=== PATIENT | female | born 1970 | race Caucasian/White ===

== ENCOUNTER 2024-06-30 21:03 | Emergency (ER) | payer SELFPAY ==
[2024-06-30 21:06] VITALS: BP 143/69; PULSE 74; RESP 18; TEMP 36.6; O2SAT 99; BMI 25.4
--- NOTE | 2024-06-30 21:55 | XR_ITS ---
PROCEDURE INFORMATION: Exam: XR Right Wrist Exam date and time: 06/30/2024 10:03 PM Age: 54 years old Clinical indication: Injury or trauma; Fall; Other: Pain TECHNIQUE: Imaging protocol: Radiologic exam of the right wrist. Views: 3 or more views. Total images: 3 COMPARISON: CR XR WRIST RT MIN 3V 06/30/2024 10:03 PM FINDINGS: Bones/joints: No acute fracture or joint dislocation. No concerning bone lesions or calcifications. Appropriate carpal alignment. Unremarkable joint spaces. Soft tissues: Mild dorsal soft tissue swelling. IMPRESSION: 1. Negative right wrist. 2. Mild dorsal soft tissue swelling.
--- NOTE | 2024-06-30 22:04 | XR_ITS ---
PROCEDURE INFORMATION: Exam: XR Right Elbow Exam date and time: 06/30/2024 10:03 PM Age: 54 years old Clinical indication: Injury or trauma; Fall; Other: Pain; Additional info: Fall, injury TECHNIQUE: Imaging protocol: Radiologic exam of the right elbow. Views: 3 or more views. Total images: 3 COMPARISON: CR XR ELBOW RT MIN 3V 06/30/2024 10:03 PM FINDINGS: Bones/joints: No acute fracture, joint dislocation, or joint effusion. Unremarkable joint spaces. Small enthesophyte at the lateral humeral epicondyle. No concerning bone lesions or calcifications. Soft tissues: Unremarkable soft tissues. IMPRESSION: Negative right elbow.
--- NOTE | 2024-06-30 22:04 | XR_ITS ---
PROCEDURE INFORMATION: Exam: XR Right Hand Exam date and time: 06/30/2024 10:03 PM Age: 54 years old Clinical indication: Injury or trauma; Fall; Other: Pain; Additional info: Fall, injury TECHNIQUE: Imaging protocol: Radiologic exam of the right hand. Views: 3 or more views. Total images: 3 COMPARISON: CR XR FOREARM RT 2V 06/30/2024 10:03 PM FINDINGS: Bones/joints: No acute fracture or joint dislocation. No concerning bone lesions or calcifications. Age-appropriate joint spaces. Soft tissues: Unremarkable soft tissues. IMPRESSION: Negative right hand.
--- NOTE | 2024-06-30 22:04 | XR_ITS ---
PROCEDURE INFORMATION: Exam: XR Right Forearm Exam date and time: 06/30/2024 10:03 PM Age: 54 years old Clinical indication: Injury or trauma; Fall; Other: Pain; Additional info: Fall, injury TECHNIQUE: Imaging protocol: Radiologic exam of the right forearm. Views: 2 views. Total images: 2 COMPARISON: CR XR HAND RT MIN 3V 06/30/2024 10:03 PM FINDINGS: Bones/joints: No acute fracture or joint dislocation. No concerning bone lesions or calcifications. Unremarkable joint spaces. Soft tissues: Unremarkable soft tissues. IMPRESSION: Negative right forearm.
[2024-06-30] MEDS: HYDROCODONE/APAP 5/325 MG TABLET 1 TAB PO (22:07)
--- NOTE | 2024-06-30 22:07 | HMH.EDGENADL ---
Discharge Plan Disposition Patient Disposition: Home, Self-Care Prescriptions Prescriptions: New hydrocodone-acetaminophen 5-325 mg tablet 1 tab PO Q6H PRN (Reason: pain) 3 Days Qty: 12 0RF Referrals Follow up/Referrals: Merrick Matthews DO [Staff Physician] - See instructions Provider,Referral, [Primary Care Provider] - See instructions Activity Restrictions/Add. Instructions Additional Instructions/Restrictions: Overall your x-rays appeared good in the emergency part however there is a small angulated cortical irregularity on the dorsal aspect of your distal radius which is where he had point tenderness therefore we treated you is a small nondisplaced distal radius fracture. Please follow-up with Dr. Matthews for further evaluation and management. Please be nonweightbearing and perform light duty until you are cleared by the orthopedic surgeon. Clinical Impressions Clinical Impression: Sprain and strain of wrist, Distal radial fracture Stand Alone Forms Stand Alone Forms: Work/School Release Print Language Print Language: Hungarian Discharge ED Provider: Valentino Velez General Adult HPI General Chief complaint: Extremity Injury, Upper Stated complaint: AO 12-7 fell and hurt right arm Time Seen by Provider: 06/30/24 21:41 Mode of Arrival: Ambulatory Source of Information: Patient Limitations: No Limitations Description of Symptoms (Recalled from ER Triage Doc. by RN): Patient fell off of a chair around 1830. States she fell at an awkward angle and twisted her arm funny and landed on it (Right Wrist). History of Present Illness HPI narrative: 54-year-old female fell from a chair landing on an externally rotated and supinated arm that was extended complaining of pain in the hand wrist forearm and elbow. No neurovascular deficits from historical standpoint. Related Data Previous Rx's ?Medication ?Instructions ?Recorded hydrocodone 5 mg-acetaminophen 325 1 tab PO Q6H PRN pain 3 days #12 06/30/24 mg tablet tabs Allergies Allergy/AdvReac Type Severity Reaction Status Date / Time oxycodone Allergy Mild Hives Verified 06/30/24 21:54 [facility] Disclaimer: The information contained in this section may have been updated after the patient was seen, as this information can be updated by other users. Social History Smoking Status: Never smoker alcohol intake: never current occupational status: other Travel in the last 8 weeks: None ROS Obtained: Yes All systems reviewed & no additional complaints except as documented Physical Exam General General appearance: alert and in no apparent distress Head Head exam: atraumatic and normocephalic Respiratory Respiratory exam: Present normal lung sounds bilaterally Cardiovascular Cardiovascular exam: Present regular rate Extremities Exam Extremities exam: Present other (Patient has tenderness over the distal aspect of the right wrist and forearm and hand and elbow normal range of motion no soft tissue abnormalities etc.) Neurological Exam Neurological exam: Present alert Medical Decision Making Medical Records Screening: Per USPSTF and CDC recommendations, given the prevalence of disease in our region, it is our hospital?s policy to screen for HIV and viral Hepatitis for all patients aged 18 and over and those with ongoing risk factors. Mick Inquiry Pt receiving controlled substance: No Vital Signs: 06/30/24 21:06 Temperature 97.9 F Temperature Source Oral Pulse Rate [Left Radial] 74 Respiratory Rate 18 Blood Pressure [Right Arm] 143/69 H Blood Pressure Mean [Right Arm] 93 Blood Pressure Source [Right Arm] Automatic Cuff Blood Pressure Position [Right Arm] Supine 02 Sat by Pulse Oximetry 99 Oxygen Delivery Method Room Air Orders (Tests/Meds): ED MEDICATIONS Discontinued Medications Generic Name Dose Route Start Last Admin Trade Name Freq PRN Reason Stop Dose Admin Hydrocodone Bitart/Acetaminophen 1 tab 06/30/24 22:04 06/30/24 22:07 Hydrocodone/Apap 5/325 Mg Tablet PO 06/30/24 22:05 1 tab ONCE ONE Administration ORDERS Category Date Time Status Elbow XR right minimum 3 views [XR elbow RT min 3V] Exams 06/30/24 22:04 Taken Stat Forearm XR right 2 views [XR forearm RT 2V] Stat Exams 06/30/24 22:04 Taken Hand XR right minimum 3 views [XR hand RT min 3V] Stat Exams 06/30/24 22:04 Taken XR wrist RT min 3V Stat Exams 06/30/24 21:55 Taken Medical Decision Narrative: 54-year-old with above history and physical fall on outstretched arm with pain hand through elbow will get plain films to differentiate fracture dislocation versus sprain. [place] has been administered will reassess. X-rays performed of the hand wrist forearm and elbow which I personally interpreted which show no significant displaced fracture however on the dorsal aspect of the lateral view of the wrist there is an angulation and a cortical irregularity at the distal radius on the dorsal aspect where there is focal tenderness clinically therefore we will treat this is nondisplaced subtle distal radius fracture. Volar wrist splint was placed pain medicine prescribed patient will follow-up with Dr. Matthews for further evaluation management. Procedures Orthopedic Splinting/Casting Injury #1: Side: right Upper Extremity Injury Location: forearm and wrist Upper Extremity Immobilizer: volar splint Post Cast/Splinting Neuro Status: other Post Cast/Splinting Vasc Status: other Critical Care Critical Care Time Critical Care Time: No
--- OUTSIDE RECORDS SUMMARY | 2024-06-30 22:09 | XMS_ITS | Clinical Summary ---
Author Organization [facility] Address [address] [place] [address] Care Team Providers Care Employment And Claims Aide Name Role Phone Sierra Blanchard MD Primary Care Provider [phone] Allergies Active Allergy Reactions Criticality Noted Date Comments Oxycodone Hcl Anaphylaxis High 06/04/2016 Medications cetirizine (zyrTEC) 10 MG tablet Take 10 mg by mouth Daily. Active varenicline (CHANTIX STARTING MONTH ) 0.5 MG X 11 & 1 MG X 42 tabletIndicatio ns:Encounter for smoking cessation counseling Take 0.5 mg one daily on days 1-2 and 0.5 mg twice daily on days 4-7. Then 1 mg twice daily for a total of 12 weeks. 53 tablet 03/24/2017 Active benzonatate (TESSALON PERLES) 100 MG capsuleIndicati ons:Bronchitis Take 1 capsule by mouth 3 (Three) Times a Day As Needed for Cough. 15 capsule 1 03/24/2017 Active Acetaminophen (Tylenol) 325 MG capsule 11/20/2019 Active TiZANidine (ZANAFLEX) 2 MG capsule TAKE 1 CAPSULE BY MOUTH THREE TIMES A DAY NEEDED FOR 7 DAYS 11/20/2019 Active methylPREDNISol one (MEDROL, RALEIGH,) 4 MG tablet TAKE 6 TABLETS ON DAY 1 DIRECTED ON PACKAGE AND DECREASE BY 1 TAB EACH DAY FOR A TOTAL OF 6 DAYS 11/20/2019 Active Active Problems Problem Noted Date Diagnosed Date Well woman exam with routine gynecological exam 09/01/2016 Overview (09/01/2016): SCREENING TESTS Year 2011 2012 2014 2015 2016 2017 2017 2018 2019 2020 2021 2022 2023 2024 2025 2026 2028 2029 2030 2031 Age 45 PAP 4 HPV high risk Mammogram [Birads] 4 SHANTI score Colonoscopy DEXA Frax [hip/any] Lipids [LDL / HDL / TG] Vitamin D Ovarian Screen Enter the month test was performed. If month not known, enter X' ?? Black numbers = normal results ?? Red numbers = abnormal results ?? Black X = patient reported normal ?? Red X - patient reported abnormal Referred by: Profession: Other info: Immunizations Name Administration Dates Next Due Flu Vaccine Quad PF >36MO 07/16/2017 Social History Tobacco Use Types Packs/Day Years Used Date Smoking Tobacco: Every Day Cigarettes Smokeless Tobacco: Never Tobacco Cessation:Ready to Q uit: Yes; Counseling Given: Yes Comments:Rx for Chantix starting pack Alcohol Use Standard Drinks/Week Comments No 0 (1 standard drink = 0.6 oz pur e alcohol) Abuse Screen Answer Date Recorded Unsafe at Home or Work/School Not on file Feels Threatened by Someone? Not on file 03/2023 Does Anyone Keep You from Co ntacting Others or Doint Things Outside the Home? Not on file 05/02/2023 Physical Sign of Abuse Present Not on file 1 Housing Stability Answer Date Recorded Current Living Arrangements Not on file 03/2023 Potentially Unsafe Housing Conditions Not on spencer e 05/02/2023 Family and Community Support Answer Hardik e Recorded Help with Day-to-Day Activities Not on file 05/02/2023 Lonely or Isolated Not on file 05/02/2023 Employment Answer Date Recorded Do you want help finding or keeping work or a flor b? Not on file 05/02/2023 Disabilities Answer Date Recorded Concentrating, Remembering, or Making Decisions Difficulty Not on file 05/02/2023 Doing Errands Independently Difficulty Not on fi le 05/02/2023 Education Answer Date Recorded Help with school or training? Not on file Preferred Language Not on file 05/02/2023 Comments Unknown Sex and Gender Information Value Date Recorded Sex Assigned at Not on file Legal Sex Female 11:20 AM EDT Gender Identity Not on file Sexual Orientation Not on file Last Filed Vital Signs Vital Sign Reading Time Taken Comments Blood Pressure 126/74 03/24/2017 10:44 AM EDT Pulse 72 03/24/2017 10:44 AM EDT Temperature 37.1 ??C (98.7 ??F) 03/24/2017 10:44 AM E DT Respiratory Rate 16 03/24/2017 10:44 AM EDT Oxygen Saturation 99% 03/24/2017 10:44 AM EDT Inhaled Oxygen Concentration - - Weight 102 kg (224 lb) 12/13/2019 2:17 PM EDT Height 168.9 cm (5' 6.5 ) 12/13/2019 2:17 PM EDT Body Mass Index 35.61 12/13/2019 2:17 PM EDT Plan of Treatment Health Maintenance Due Date Last Done Comments COLOGUARD 1972 COLON CANCER SCREENING 5 YEA R SIGMOIDOSCOPY 1972 COLONOSCOPY [address] SCREENING 1972 CT COLONOGRAPHY 1972 FECAL OCCULT BLOOD TEST 1972 FIT Testing (1 year) 1972 Pneumococcal Vaccine 0-64 (1 of 2 - PCV) 01/18/1978 MAMMOGRAM 2012 ANNUAL PHYSICAL 10/28/2016 HEPATITIS C SCREENING 10/28/2016 Annual Gynecologic Pelvic and Breast Exam 10/29/2016 10/29/2015 PAP SMEAR 10/28/2018 10/29/2015 ZOSTER VACCINE (1 of 2) 01/18/2022 INFLUENZA VACCINE 01/23/2024 07/16/2017 COVID-19 Vaccine ( - season) 2024 TDAP/TD VACCINES (3 - Td or Tdap) 01/26/2029 019, 12/26/2008 Procedures Procedure Name Priority Date/Time Associated Diagnosis Comments SCANNED - PAP SMEAR 10/29/2015 from Last 3 Months or Most Recently Relevant to Health Maintenance Results * SCANNED - PAP SMEAR (10/29/2015) [facility] Onbase CHART REVIEW TABS Final Re sult from Last 3 Months or Most Recently Relevant to Health Maintenance Insurance [place] [place] [id number] [facility] PPO Care Teams Employment And Claims Aide Relationship Specialty Start Date End Date Sierra Blanchard MD PCP - General Family Medicine 11/20/19
--- OUTSIDE RECORDS SUMMARY | 2024-06-30 22:09 | XMS_ITS | Encounter Summary ---
Author Organization [facility] Address [address] [place] [address] Care Team Providers Care Tile Mason Name Role Phone Sushil Fry MD Primary Care Provider [phone] Encounter Details Date Type Department Care Team (Latest Contact Info) Description 06/23/2015 2:04 PM EST - 06/23/2015 11:59 PM EST Hospital Encounter [facility] DEPARTMENT [address] [place] [id number] Sushil Fry MD [address] [place] [address] Discharge Disposition: Home or Self Care Social History Tobacco Use Types Packs/Day Years Used Date Smoking Tobacco: Never Assessed Comments Unknown Sex and Gender Information Value Date Recorded Sex Assigned at Not on file Legal Sex Female 11:20 AM EDT Gender Identity Not on file Sexual Orientation Not on file documented as of this encounter Plan of Treatment Not on file documented as of this encounter Procedures Procedure Name Priority Date/Time Associated Diagnosis Comments CT ABDOMEN PELVIS W WO CONTRAST Routine 06/23/2015 2:09 PM EST documented in this encounter Results * CT abdomen pelvis w wo contrast (06/23/2015 2:09 PM EST) Anatomical Region Laterality Modality Abdomen, Pelvis N/A Computed Tomogra phy 06/23/2015 2:09 PM EST Narrative 06/24/2015 3:59 PM EST EXAMINATION- AC ABD PELVIS W WO CONTRAST INDICATION- Abdominal pain right upper quadrant, fatigue, weight loss increased white blood count. TECHNIQUE- Multislice helical CT before and after 100 cc Isovue-370 contrast media. Two-dimensional reformatted images were provided for this exam. The radiation dose reduction device was turned on for each scan per the ALARA (As Low as Reasonably Achievable) protocol. COMPARISON- 08/24/2007 FINDINGS- Minimal atelectasis is present in the lower lobes. The heart size is normal. The distal esophagus ??is grossly unremarkable. The hepatic parenchyma is free of masses. Clips overlie the gallbladder fossa. The pancreatic tissues are grossly unremarkable. The adrenal glands are normal. The renal contours are smooth. There is no hydronephrosis or hydroureter. The course and caliber of the stomach and proximal small bowel are normal. Pelvis- The bladder is moderately distended. The uterus and adnexa are normal. There is no significant inguinal adenopathy. The appendix contains air. A few diverticula are present in the sigmoid colon. There is no significant inguinal adenopathy. The osseous structures of the abdomen and pelvis are normal. Delayed images reveal normal renal collecting systems and ureters. There are no filling defects in the bladder. IMPRESSION- No acute abdominal or pelvic pathology. DT- ??06/24/2015 DE- ??06/24/2015 ? Reading Radiologist- OTIS CASTELLANO ? Releasing Radiologist- OTIS CASTELLANO ? Released Date Time- 06/24/15 1559 ? Ward Service Supervisor- D.M.E. Procedure Note Otis Emanuel MD - 06/24/2015 EXAMINATION- AC ABD PELVIS W WO CONTRAST INDICATION- Abdominal pain right upper quadrant, fatigue, weight loss increased white blood count. TECHNIQUE- Multislice helical CT before and after 100 cc Isovue-370 contrast media. Two-dimensional reformatted images were provided for this exam. The radiation dose reduction device was turned on for each scan per the ALARA (As Low as Reasonably Achievable) protocol. COMPARISON- 08/24/2007 FINDINGS- Minimal atelectasis is present in the lower lobes. The heart size is normal. The distal esophagus is grossly unremarkable. The hepatic parenchyma is free of masses. Clips overlie the gallbladder fossa. The pancreatic tissues are grossly unremarkable. The adrenal glands are normal. The renal contours are smooth. There is no hydronephrosis or hydroureter. The course and caliber of the stomach and proximal small bowel are normal. Pelvis- The bladder is moderately distended. The uterus and adnexa are normal. There is no significant inguinal adenopathy. The appendix contains air. A few diverticula are present in the sigmoid colon. There is no significant inguinal adenopathy. The osseous structures of the abdomen and pelvis are normal. Delayed images reveal normal renal collecting systems and ureters. There are no filling defects in the bladder. IMPRESSION- No acute abdominal or pelvic pathology. DT- 06/24/2015 DE- 06/24/2015 Reading Radiologist- OTIS CASTELLANO Releasing Radiologist- OTIS CASTELLANO Released Date Time- 06/24/15 1559 Ward Service Supervisor- D.M.E. Sushil Fry MD IMG CT ORDERABLES Final Resul t documented in this encounter Visit Diagnoses Not on filedocumented in this encounter Care Teams Tile Mason Relationship Specialty Start Date End Date Sushil Fry MD PCP - General 03/06/15 10/28/15 documented as of this encounter
--- OUTSIDE RECORDS SUMMARY | 2024-06-30 22:09 | XMS_ITS | Encounter Summary ---
Author Organization [facility] Address [address] [place] [address] Care Team Providers Care Or Scrub Tech Name Role Phone Sushil Fyr MD Primary Care Provider [phone] Encounter Details Date Type Department Care Team (Late st Contact Info) Description 06/18/2015 Telephone Converted [facility] HISTORICAL CONV [address] [place] [address] Social History Tobacco Use Types Packs/Day Years Used Date Smoking Tobacco: Never Assessed Comments Unknown Sex and Gender Information Value Date Recorded Sex Assigned at Not on file Legal Sex Female 11:20 AM EDT Gender Identity Not on file Sexual Orientation Not on file documented as of this encounter Miscellaneous Notes * Telephone Encounter - Interface, See Report - 06/18/2015 3:56 PM EST Message Recorded as Task Date: 06/18/2015 12:29 PM, Created By: Luzma Garcia Task Name: Medication Question Assigned To: Virgilio Eagle [facility]: [facility] Comment: Luzma Garcia - 18 Jun 2015 12:29 PM TASK CREATED [facility] [place], [place] CALLED [facility]ING MED[facility] SANCHEZHRIN WANTS CLARIFICATION ON DRUG AND DIRECTIONS PLSE ADVISE THX CALL #[phone] PER Elyssa Higginbotham - 18 Jun 2015 1:33 PM TASK EDITED Let them know he wants the premethrin lice solution per dr fry/Elyssa Ortiz - 18 Jun 2015 1:33 PM TASK REASSIGNED: Previously Assigned To Elyssa Birch Aliran - 18 Jun 2015 3:18 PM TASK EDITED Elyssa, pharmacist is a little comfused regarding this rx. She would like to talk to Dr. Fry to get it clear. [phone]. Thank you! FcoVirgilio - 18 Jun 2015 3:56 PM TASK EDITED As per Dr fry, I asked the pharmacist what would she suggest. She will fill the rx and write instructions on patient medication as to how to apply it to the hair for lice. documented in this encounter Plan of Treatment Not on file documented as of this encounter Visit Diagnoses Not on filedocumented in this encounter Care Teams Or Scrub Tech Relationship Specialty Start Date End Date Sushil Fry MD PCP - General 03/06/15 10/28/15 documented as of this encounter
--- OUTSIDE RECORDS SUMMARY | 2024-06-30 22:09 | XMS_ITS | Encounter Summary ---
Author Organization [facility] Address [address] [place] [address] Care Team Providers Care Culinary Instructor Name Role Phone Sushil Fry MD Primary Care Provider [phone] Encounter Details Date Type Department Care Team (Latest Contact Info) Description 05/16/2015 10:00 AM EDT - 05/16/2015 11:59 PM EDT Hospital Encounter [facility] DEPARTMENT [address] [place] [phone] Sushil Fry MD [address] [place] [address] Discharge Disposition: Home or Self Care Social [...] Procedure Name Priority Date/Time Associated Diagnosis Comments US ABDOMEN COMPLETE Routine 05/16/2015 9 :51 AM EDT documented in this encounter Results * ULTRASOUND ABDOMEN COMPLETE (05/16/2015 9:51 AM EDT) Anatomical Region Laterality Modality Body, Abdomen Ultrasound 05/16/2015 9:51 AM EDT Narrative 05/16/2015 11:50 AM EDT Exam Room: [facility] 1 Exam Start: [id number] Exam Stop: [id number] EXAMINATION- AU-ABDOMEN COMPLETE INDICATION- RUQ abdominal pain, leukocytosis ?? COMPARISON- NONE FINDINGS- Patient history indicates right upper quadrant pain and leukocytosis. The abdominal aorta is visible along its length, and appears normal in diameter. The IVC appears normal. The pancreas is generally well visualized and appears grossly normal. Right and left liver lobes appear normal in morphology and echotexture. By history, the gallbladder is surgically absent. The common bile duct is normal in caliber at between 3 and 4 mm in diameter. The right kidney measures 12.3 cm and appears normal. The left kidney measures 12.1 cm and appears normal. There is no evidence of nephrolithiasis or obstructive uropathy. The spleen is approximately 11 cm in length and normal in appearance. No upper abdominal ascites is seen. ? IMPRESSION- 1. Previous cholecystectomy. 2. Otherwise unremarkable abdominal ultrasound. In particular, no evidence of intra or extrahepatic biliary ductal dilatation is seen. DT- ??05/16/2015 DE- ??05/16/2015 ? Reading Radiologist- STAN DOWELL ? Releasing Radiologist- STAN DOWELL ? Released Date Time- 05/16/15 1150 ? Security Orderly- Tarik Read By: STAN DOWELL Released By: STAN DOWELL Procedure Note Stan To MD - 05/18/2015 Exam Room: [facility] 1 Exam Start: [id number] Exam Stop: [id number] EXAMINATION- AU-ABDOMEN COMPLETE INDICATION- RUQ abdominal pain, leukocytosis COMPARISON- NONE FINDINGS- Patient history indicates right upper quadrant pain and leukocytosis. The abdominal aorta is visible along its length, and appears normal in diameter. The IVC appears normal. The pancreas is generally well visualized and appears grossly normal. Right and left liver lobes appear normal in morphology and echotexture. By history, the gallbladder is surgically absent. The common bile duct is normal in caliber at between 3 and 4 mm in diameter. The right kidney measures 12.3 cm and appears normal. The left kidney measures 12.1 cm and appears normal. There is no evidence of nephrolithiasis or obstructive uropathy. The spleen is approximately 11 cm in length and normal in appearance. No upper abdominal ascites is seen. IMPRESSION- 1. Previous cholecystectomy. 2. Otherwise unremarkable abdominal ultrasound. In particular, no evidence of intra or extrahepatic biliary ductal dilatation is seen. DT- 05/16/2015 DE- 05/16/2015 Reading Radiologist- STAN DOWELL Releasing Radiologist- STAN DOWELL Released Date Time- 05/16/15 1150 Security Orderly- Tarik Read By: STAN DOWELL Released By: STAN DOWELL us Sushil Fry MD [facility] ORDERABLES Final Resul t documented in this encounter Visit Diagnoses Not on filedocumented in this encounter Care Teams Culinary Instructor Relationship Specialty Start Date End Date Sushil Fry MD PCP - General 03/06/15 10/28/15 documented as of this encounter
--- OUTSIDE RECORDS SUMMARY | 2024-06-30 22:09 | XMS_ITS | Encounter Summary ---
Author Organization [facility] Address [address] [place] [address] Care Team Providers Care Coffee Bar Attendant Name Role Phone Sushil Fry MD Primary Care Provider [phone] Reason for Visit * Reason Comments Sinusitis clear w/bad taste po ductive cough, post nasal drip, sinus drainage, mild earache, facial preassure Encounter Details Date Type Department Care Team (Late st Contact Info) Description 03/24/2017 10:15 AM EDT Office Visit [facility] [address] [phone] Sushil Fry MD [address] [place] [address] Bronchitis (Primary Dx); Encounter for smoking cessation counseling Social History Tobacco Use Types Packs/Day Years Used Date Smoking Tobacco: Every Day Cigarettes Smokeless Tobacco: Never Tobacco Cessation:Ready to Q uit: Yes; Counseling Given: Yes Comments:Rx for Chantix starting pack Alcohol Use Standard Drinks/Week Comments No 0 (1 standard drink = 0.6 oz pur e alcohol) Comments Unknown Sex and Gender Information Value Date Recorded Sex Assigned at Not on file Legal Sex Female 11:20 AM EDT Gender Identity Not on file Sexual Orientation Not on file documented as of this encounter Last Filed Vital Signs Vital Sign Reading Time Taken Comments Blood Pressure 126/74 03/24/2017 10:44 AM EDT Pulse 72 03/24/2017 10:44 AM EDT Temperature 37.1 ??C (98.7 ??F) 03/24/2017 10:44 AM E DT Respiratory Rate 16 03/24/2017 10:44 AM EDT Oxygen Saturation 99% 03/24/2017 10:44 AM EDT Inhaled Oxygen Concentration - - Weight 102 kg (224 lb) 03/24/2017 10:44 AM EDT Height 168.9 cm (5' 6.5 ) 03/24/2017 10:44 AM ED T Body Mass Index 35.61 03/24/2017 10:44 AM EDT documented in this encounter Progress Notes * Sushil Fry MD - 03/24/2017 10:15 AM EDT Subjective Venessa Dumont is a 47 y.o. female. Cough This is a new problem. The current episode started in the past 7 days. The cough is productive of sputum. Associated symptoms include postnasal drip. Pertinent negatives include no chest pain, chills, fever, shortness of breath or sweats. The symptoms are aggravated by lying down. She has tried OTCcough suppressant (Robitussin) for the symptoms. The treatment provided no relief. Her past medicalhistory is significant for environmental allergies. current smoker The following portions of the patient's history were reviewed and updated as appropriate: allergies, current medications, past social history and problem list. Review of Systems Constitutional: Negative for chills and fever. HENT: Positive for postnasal drip. Respiratory: Positive for cough. Negative for shortness of breath. Cardiovascular: Negative for chest pain. Allergic/Immunologic: Positive for environmental allergies. Objective BP 126/74 Pulse 72 Temp 98.7 ??F (37.1 ??C) Resp 16 Ht 66.5 (168.9 cm) Wt 224 lb (102 kg) SpO2 99% BMI 35.61 kg/m2 Physical Exam Constitutional: She appears well-developed and well-nourished. HENT: Right Ear: External ear normal. Left Ear: External ear normal. Mouth/Throat: Oropharynx is clear and moist. Cardiovascular: Normal rate and regular rhythm. Pulmonary/Chest: Effort normal and breath sounds normal. Nursing note and vitals reviewed. Assessment/Plan Problem List Items Addressed This Visit None Visit Diagnoses Bronchitis - Primary Relevant Medications cetirizine (zyrTEC) 10 MG tablet Encounter for smoking cessation counseling Drink plenty fluids. Switch to Claritin for 1 week then go back to Cetirizine. Rx for Augmentin 875 twice a day for 7 day #14+0. Rx for Benzonatate 100 mg Three times a day #15+1. Rx for Chantix starter pack. Follow up [address] Sushil Fry by Sushil Ledbetter CMA., MD, personally performed the services described in this documentation, as scribed by Elyssa Birch in my presence, and is both accurate and complete. documented in this encounter Plan of Treatment Not on file documented as of this encounter Visit Diagnoses Diagnosis Bronchitis- Primary Bronchitis, not specified as acute or chronic Encounter for smoking cessation counseling documented in this encounter Care Teams Coffee Bar Attendant Relationship Specialty Start Date End Date Sushil Fry MD PCP - General Family Medicine 11/03/16 11/19/19 documented as of this encounter
--- OUTSIDE RECORDS SUMMARY | 2024-06-30 22:09 | XMS_ITS | Encounter Summary ---
Author Organization [facility] Address [address] [place] [address] Care Team Providers Care Buttermaker Name Role Phone Sushil Fry MD Primary Care Provider Encounter Details Date Type Department Care Team (Late st Contact Info) Description 07/24/2015 Documentation Converted [facility] HISTORICAL CONV [address] [place] [phone] Social History Tobacco Use Types Packs/Day Years Used Date Smoking Tobacco: Never Assessed Comments Unknown Sex and Gender Information Value Date Recorded Sex Assigned at Not on file Legal Sex Female 11:20 AM EDT Gender Identity Not on file Sexual Orientation Not on file documented as of this encounter Progress Notes * Sushil Fry MD - 07/24/2015 1:29 PM EST Verified Results Amylase [id number] 04:05PM Sushil Fry Test Name Result Flag Reference Amylase 52 Units/L 30-118 Lipase [id number] 04:05PM Sushil Fry Test Name Result Flag Reference Lipase 34 Units/L 6-51 documented in this encounter Plan of Treatment Not on file documented as of this encounter Visit Diagnoses Not on filedocumented in this encounter Care Teams Buttermaker Relationship Specialty Start Date End Date Sushil Fry MD PCP - General 03/06/15 10/28/15 documented as of this encounter
--- OUTSIDE RECORDS SUMMARY | 2024-06-30 22:09 | XMS_ITS | Encounter Summary ---
Author Organization [facility] Address [address] [place] [address] Care Team Providers Care Caustics Loader Name Role Phone Sushil Fry MD Primary Care Provider [phone] Encounter Details Date Type Department Care Team (Late st Contact Info) Description 06/18/2015 Telephone Converted [facility] HISTORICAL CONV [address] [place] [address] Social History Tobacco Use Types Packs/Day Years Used Date Smoking Tobacco: Never Assessed Comments Unknown Sex and Gender Information Value Date Recorded Sex Assigned at Not on file Legal Sex Female 11:20 AM EDT Gender Identity Not on file Sexual Orientation Not on file documented as of this encounter Miscellaneous Notes * Telephone Encounter - Interface, See Report - 06/18/2015 4:24 PM EST Message Recorded as Task Date: 06/18/2015 09:34 AM, Created By: Luzma Garcia Task Name: Medication Question Assigned To: Virgilio Eagle [id number] Status: Active Comment: Luzma Garcia - 18 Jun 2015 9:34 AM TASK CREATED Caller: Self; ; PT CALLED REQUESTING LICE SHAMPOO PLSE ADVISE THX RX- [facility] IN [place], [place] Elyssa Birch - 18 Jun 2015 11:19 AM TASK EDITED OK per Dr Fry sentd rx for Permethrin shampoo and let her know/Elyssa Ortiz - 18 Jun 2015 11:30 AM TASK EDITED Let pt know rx was sent/Elyssa Ortiz - 18 Jun 2015 1:33 PM TASK REASSIGNED: Previously Assigned To Elyssa Birch Aliran - 18 Jun 2015 4:24 PM TASK EDITED patient has been notified documented in this encounter Plan of Treatment Not on file documented as of this encounter Visit Diagnoses Not on filedocumented in this encounter Care Teams Caustics Loader Relationship Specialty Start Date End Date Sushil Fry MD PCP - General 03/06/15 10/28/15 documented as of this encounter
--- OUTSIDE RECORDS SUMMARY | 2024-06-30 22:09 | XMS_ITS | Encounter Summary ---
Author Organization [facility] Address [address] [place] [address] Care Team Providers Care Bpm Developer Name Role Phone Sushil Fry MD Primary Care Provider [phone] Encounter Details Date Type Department Care Team (Late st Contact Info) Description 07/21/2015 9:19 AM EST - 07/24/2015 11:59 PM EST Hospital Encounter [facility] DEPARTMENT [address] [place] [address] Kamini Drew MD [address] [facility] [address] [place] [address] Discharge Disposition: Home or Self Care Social [...] Procedure Name Priority Date/Time Associated Diagnosis Comments CBC ONCOLOGY Routine 07/21/2015 9:15 AM EST documented in this encounter Results * (ABNORMAL) CBC Oncology (07/21/2015 9:15 AM EST) WBC 12.60(H) 3.50 - 10.80 [facility] LABORATORY Lymphocyte Rel % 36.3 24.0 - 44.0 % [facility] LABORATORY Lymphocytes Absolute 4.60 0.60 - 4.80 [facility] LABORATORY Monocyte Rel % 4.6 0.0 - 12.0 % [facility] Monocytes Absolute 0.60 0.00 - 1.00 K/[facility] Neutrophil Rel % 59.1 41.0 - 71.0 % [facility] Neutrophils Absolute 7.40 1.50 - 8.30 K/[facility] RBC 4.94 3.89 - 5.14 /[facility] Hemoglobin 14.2 11.5 - 15.5 g/dL [facility] Hematocrit 44.1(H) 34.5 - 44.0 % [facility] Platelets 213 150 - 450 K/[facility] MCV 89.3 80.0 - 99.0 fL [facility] MCH 28.7 27.0 - 31.0 pg [facility] MCHC 32.2 32.0 - 36.0 g/dL [facility] RDW 14.1 11.3 - 14.5 % [facility] MPV 8.4 fL [facility] Blood specimen (specimen) 07/21/2015 9:15 AM EST 07/21/2015 9:15 AM EST Narrative [facility] LABORATORY - 07/21/2015 9:22 AM EST Specimen Type : Blood Kamini Drew MD LAB BLOOD ORDERABLES Lisbet l Result [facility]
[address] [phone] documented in this encounter Visit Diagnoses Not on filedocumented in this encounter Care Teams Bpm Developer Relationship Specialty Start Date End Date Sushil Fry MD PCP - General 03/06/15 10/28/15 documented as of this encounter
--- OUTSIDE RECORDS SUMMARY | 2024-06-30 22:09 | XMS_ITS | Encounter Summary ---
Author Organization [facility] Address [address] [place] [address] Care Team Providers Care Clinical Quality Rn Name Role Phone Provider, No Known Primary Care Provider [phone] Reason for Referral * Diagnostic Imaging (Routine) - Closed Specialty Diagnoses / Procedures Referred By Contac t Referred To Contact Radiology Diagnoses Achilles tendinitis, right leg Procedures XR Foot 3+ View Right Sushil Fry MD Phone: tel: fax: Referral ID Status Reason Start Date Expiration Date Visits Re quested Visits Authorized [id number] Closed 10/28/2016 10/28/2017 1 1 * Physical Therapy (Routine) - Closed Specialty Diagnoses / Procedures Referred By Contac t Referred To Contact Physical Therapy Diagnoses Achilles tendinitis, right leg Plantar fasciitis of right foot Sushil Fry MD Phone: tel: fax: [facility] AT [facility] [address] [facility] [address] [place] [address] Phone: tel: fax: Referral ID Status Reason Start Date Expiration Date V isits Requested Visits Authorized [id number] Closed Specialty Services Required 10/28/2016 10/28/2017 1 1 Reason for Visit * Reason Comments Foot Injury right Encounter Details Date Type Department Care Team (Late st Contact Info) Description 10/28/2016 11:00 AM EDT Office Visit [facility] [address] [phone] Sushil Fry MD [address] [place] [id number] Achilles tendinitis, right leg (Primary Dx); Plantar fasciitis of right foot Social History Tobacco Use Types Packs/Day Years Used Date Smoking Tobacco: Every Day Cigarettes Comments Unknown Sex and Gender Information Value Date Recorded Sex Assigned at Not on file Legal Sex Female 11:20 AM EDT Gender Identity Not on file Sexual Orientation Not on file documented as of this encounter Last Filed Vital Signs Vital Sign Reading Time Taken Comments Blood Pressure 130/80 10/28/2016 11:11 AM EDT Pulse 73 10/28/2016 11:11 AM EDT Temperature 36.7 ??C (98.1 ??F) 10/28/2016 11:11 AM E DT Respiratory Rate - - Oxygen Saturation 99% 10/28/2016 11:11 AM EDT Inhaled Oxygen Concentration - - Weight 103 kg (226 lb) 10/28/2016 11:11 AM EDT Height 168.9 cm (5' 6.5 ) 10/28/2016 11:11 AM ED T Body Mass Index 35.93 10/28/2016 11:11 AM EDT documented in this encounter Progress Notes * Sushil Fry MD - 10/28/2016 11:00 AM EDT Subjective [facility] is a 46 y.o. female. Foot Injury The injury mechanism is unknown. The pain is present in the right heel (and right lower leg). The quality of the pain is described as aching and stabbing. The pain is moderate. The pain has been intermittent since onset. She reports no foreign bodies present. The symptoms are aggravated by movementand weight bearing. She has tried rest and ice for the symptoms. The treatment provided mild relief. The following portions of the patient's history were reviewed and updated as appropriate: allergies, current medications, past social history and problem list. Review of Systems Respiratory: Negative for shortness of breath. Cardiovascular: Negative for chest pain. Objective BP 130/80 Pulse 73 Temp 98.1 ??F (36.7 ??C) Ht 66.5 (168.9 cm) Wt 226 lb (103 kg) SpO2 99% BMI 35.93 kg/m2 Physical Exam Constitutional: She appears well-developed and well-nourished. Musculoskeletal: Examination of the affected foot and ankle revealed a tenderness of the Achilles tendon. There is no defect. There is also some tenderness at the heel and the distal plantar fasciitis at the volar aspect of the foot. No point tenderness. Her arch was moderately high. Nursing note and vitals reviewed. Assessment/Plan Problem List Items Addressed This Visit None Visit Diagnoses Achilles tendinitis, right leg - Primary Plantar fasciitis of right foot Rest foot as much as possible. Continue the ice pack as doing. Do some foot stretches/exercises. Get some power step arch supports. Check an x-ray of the right foot. Report results by letter. Schedule for Physical Therapy. [facility]. Follow up as needed. Scribed for Dr Sushil Fry by Elyssa Birch [facility]. I, Sushil Fry MD, personally performed the services described in this documentation, as scribed by Elyssa Birch in my presence, and is both accurate and complete. documented in this encounter Plan of Treatment Scheduled Referrals Name Type Priority Associated Diagnoses Order Schedule Ambulatory Referral to Physical Therapy Evaluate and treat Outpatient Referral Routine Achilles Tendinitis, Right Leg Plantar fasciitis of right foot Ordered: 10/28/2016 documented as of this encounter Results * XR Foot 3+ View Right (11/03/2016 2:31 PM EDT) Anatomical Region Laterality Modality Lower Extremities, Foot Right [facility] 11/03/2016 6:25 PM EDT Impressions 11/04/2016 12:13 PM EDT No acute osseous abnormality. Mild spurring along the undersurface of the calcaneus. DICTATED: ? 11/03/2016 EDITED: ? 11/03/2016 This report was finalized on 11/04/2016 12:[address] Otis Emanuel MD. Narrative 11/04/2016 12:13 PM EDT EXAMINATION: XR RIGHT FOOT, 3 VIEWS - 11/03/2016 INDICATION: ; M76.61-Achilles tendinitis, right leg. Right foot pain. COMPARISON: None. FINDINGS: Normal anatomic alignment of the tarsal, metatarsal, and phalanges is preserved. There is no acute fracture or subluxation. The soft tissues are grossly unremarkable. There is minimal spurring at the insertion of the plantar aponeurosis on the calcaneus. Procedure Note Otis Emanuel MD - 11/04/2016 EXAMINATION: XR RIGHT FOOT, 3 VIEWS - 11/03/2016 INDICATION: ; M76.61-Achilles tendinitis, right leg. Right foot pain. COMPARISON: None. FINDINGS: Normal anatomic alignment of the tarsal, metatarsal, and phalanges is preserved. There is no acute fracture or subluxation. The soft tissues are grossly unremarkable. There is minimal spurring at the insertion of the plantar aponeurosis on the calcaneus. IMPRESSION: No acute osseous abnormality. Mild spurring along the undersurface of the calcaneus. DICTATED: 11/03/2016 EDITED: 11/03/2016 This report was finalized on 11/04/2016 12:[address] Otis Emanuel MD. Sushil Fry MD IMG DIAGNOSTIC IMAGING ORDERA BLES Final Result documented in this encounter Visit Diagnoses Diagnosis Achilles tendinitis, right leg- Primary Plantar fasciitis of right foot Achilles tendinitis, right leg documented in this encounter Care Teams Clinical Quality Rn Relationship Specialty Start Date End Date Provider, [place] [address] PCP - General 11/06/15 11/02/16 documented as of this encounter
--- OUTSIDE RECORDS SUMMARY | 2024-06-30 22:09 | XMS_ITS | Encounter Summary ---
Author Organization [facility] Address [address] [place] [address] Care Team Providers Care Deckhand Maintenance Name Role Phone Provider, No Known Primary Care Provider [phone] Reason for Visit * Reason Comments Sinus Problem Sore Throat Encounter Details Date Type Department Care Team (Late st Contact Info) Description 06/04/2016 5:45 PM EST Office Visit [address] [address] Acute recurrent pansinusitis (Primary Dx); Sorethroat Social History Tobacco Use Types Packs/Day Years Used Date Smoking Tobacco: Every Day Cigarettes Comments Unknown Sex and Gender Information Value Date Recorded Sex Assigned at Not on file Legal Sex Female 11:20 AM EDT Gender Identity Not on file Sexual Orientation Not on file documented as of this encounter Last Filed Vital Signs Vital Sign Reading Time Taken Comments Blood Pressure - - Pulse 86 06/04/2016 6:24 PM EST Temperature 36.8 ??C (98.3 ??F) 06/04/2016 6:24 PM ES T Respiratory Rate 16 06/04/2016 6:24 PM EST Oxygen Saturation - - Inhaled Oxygen Concentration - - Weight 104 kg (230 lb) 06/04/2016 6:24 PM EST Height 168.9 cm (5' 6.5 ) 06/04/2016 6:24 PM EST Body Mass Index 36.57 06/04/2016 6:24 PM EST documented in this encounter Patient Instructions * Patient Instructions* Titi Wolf V, RADHA - 06/04/2016 6:06 PM EST Images from the original note were not included. Sinusitis, Adult Sinusitis is redness, soreness, and inflammation of the paranasal sinuses. Paranasal sinuses are air pockets within the bones of your face. They are located beneath your eyes, in the middle of your forehead, and above your eyes. In healthy paranasal sinuses, mucus is able to drain out, and air is able to circulate through them by way of your nose. However, when your paranasal sinuses are inflamed, mucus and air can become trapped. This can allow bacteria and other germs to grow and cause infection. Sinusitis can develop quickly and last only a short time (acute) or continue over a long period (chronic). Sinusitis that lasts for more than 12 weeks is considered chronic. CAUSES Causes of sinusitis include: ?? Allergies. ?? Structural abnormalities, such as displacement of the cartilage that separates your nostrils (deviated septum), which can decrease the air flow through your nose and sinuses and affect sinus drainage. ?? Functional abnormalities, such as when the small hairs (cilia) that line your sinuses and help remove mucus do not work properly or are not present. SIGNS AND SYMPTOMS Symptoms of acute and chronic sinusitis are the same. The primary symptoms are pain and pressure around the affected sinuses. Other symptoms include: ?? Upper toothache. ?? Earache. ?? Headache. ?? Bad breath. ?? Decreased sense of smell and taste. ?? A cough, which worsens when you are lying flat. ?? Fatigue. ?? Fever. ?? Thick drainage from your nose, which often is green and may contain pus (purulent). ?? Swelling and warmth over the affected sinuses. DIAGNOSIS Your health care provider will perform a physical exam. During your exam, your health care providermay perform any of the following to help determine if you have acute sinusitis or chronic sinusitis: ?? Look in your nose for signs of abnormal growths in your nostrils (nasal polyps). ?? Tap over the affected sinus to check for signs of infection. ?? View the inside of your sinuses using an imaging device that has a light attached (endoscope). If your health care provider suspects that you have chronic sinusitis, one or more of the followingtests may be recommended: ?? Allergy tests. ?? Nasal culture. A sample of mucus is taken from your nose, sent to a lab, and screened for bacteria. ?? Nasal cytology. A sample of mucus is taken from your nose and examined by your health care provider to determine if your sinusitis is related to an allergy. TREATMENT Most cases of acute sinusitis are related to a viral infection and will resolve on their own [id number] days. Sometimes, medicines are prescribed to help relieve symptoms of both acute and chronic sinusitis. These may include pain medicines, decongestants, nasal steroid sprays, or saline sprays. However, for sinusitis related to a bacterial infection, your health care provider will prescribe antibiotic medicines. These are medicines that will help kill the bacteria causing the infection. Rarely, sinusitis is caused by a fungal infection. In these cases, your health care provider will prescribe antifungal medicine. For some cases of chronic sinusitis, surgery is needed. Generally, these are cases in which sinusitis recurs more than 3 times per year, despite other treatments. HOME CARE INSTRUCTIONS ?? Drink plenty of water. Water helps thin the mucus so your sinuses can drain more easily. ?? Use a humidifier. ?? Inhale steam 3-4 times a day (for example, sit in the bathroom with the shower running). ?? Apply a warm, moist washcloth to your face 3-4 times a day, or as directed by your health care provider. ?? Use saline nasal sprays to help moisten and clean your sinuses. ?? Take medicines only as directed by your health care provider. ?? If you were prescribed either an antibiotic or antifungal medicine, finish it all even if you start to feel better. SEEK IMMEDIATE MEDICAL CARE IF: ?? You have increasing pain or severe headaches. ?? You have nausea, vomiting, or drowsiness. ?? You have swelling around your face. ?? You have vision problems. ?? You have a stiff neck. ?? You have difficulty breathing. This information is not intended to replace advice given to you by your health care provider. Make sure you discuss any questions you have with your health care provider. Document Released: 07/11/2006 Document Revised: 08/01/2015 Document Reviewed: 07/25/2012 [employer] Patient Education ??2016 [employer] documented in this encounter Progress Notes * Titi Wolf APRN - 06/04/2016 6:06 PM EST Zuleyka Dumont is a 46 y.o. female. Sinus Problem This is a new problem. The current episode started 1 to 4 weeks ago (worse over the past few days).The problem has been gradually worsening since onset. There has been no fever. The pain is moderate. Associated symptoms include congestion, headaches, a hoarse voice, sinus pressure, a sore throat and swollen glands. Pertinent negatives include no chills, coughing, ear pain, neck pain, shortness of breath or sneezing. Treatments tried: allergy medication. The treatment provided no relief. Sore Throat This is a new problem. The current episode started yesterday. The problem has been rapidly worsening. There has been no fever. The pain is severe. Associated symptoms include congestion, headaches, ahoarse voice and swollen glands. Pertinent negatives include no abdominal pain, coughing, diarrhea,ear pain, neck pain, shortness of breath, trouble swallowing or vomiting. She has had exposure to strep. She has had no exposure to mono. She has tried NSAIDs for the symptoms. The treatment providedno relief. The following portions of the patient's history were reviewed and updated as appropriate: allergies, current medications, past medical history, past social history, past surgical history and problem list. Review of Systems Constitutional: Negative for appetite change, chills and fever. HENT: Positive for congestion, hoarse voice, postnasal drip, rhinorrhea, sinus pressure and sore throat. Negative for ear pain, sneezing and trouble swallowing. Eyes: Negative. Respiratory: Negative for cough, shortness of breath and wheezing. Cardiovascular: Negative. Gastrointestinal: Negative for abdominal pain, diarrhea, nausea and vomiting. Musculoskeletal: Negative. Negative for neck pain. Skin: Negative. Neurological: Positive for headaches. Negative for dizziness. Visit Vitals ??? Pulse 86 ??? Temp 98.3 ??F (36.8 ??C) ??? Resp 16 ??? Ht 66.5 (168.9 cm) ??? Wt 230 lb (104 kg) ??? LMP Comment: menopause ??? BMI 36.57 kg/m2 Objective Physical Exam Constitutional: She is oriented to person, place, and time. Vital signs are normal. She appears well-developed and well-nourished. HENT: Head: Normocephalic. Right Ear: External ear and ear canal normal. No drainage or tenderness. Tympanic membrane is bulging. Tympanic membrane is not erythematous. Left Ear: External ear and ear canal normal. No drainage or tenderness. Tympanic membrane is bulging. Tympanic membrane is not erythematous. Nose: Mucosal edema and rhinorrhea present. Right sinus exhibits maxillary sinus tenderness and frontal sinus tenderness. Left sinus exhibits maxillary sinus tenderness and frontal sinus tenderness. Mouth/Throat: Uvula is midline, oropharynx is clear and moist and mucous membranes are normal. No posterior oropharyngeal erythema. Tonsils are 1+ on the right. Tonsils are 1+ on the left. No tonsillar exudate. Eyes: Conjunctivae are normal. Pupils are equal, round, and reactive to light. Neck: Normal range of motion. Cardiovascular: Normal rate, regular rhythm, S1 normal, S2 normal and normal heart sounds. Pulmonary/Chest: Effort normal and breath sounds normal. No respiratory distress. She has no wheezes. Lymphadenopathy: Head (right side): Tonsillar adenopathy present. Head (left side): Tonsillar (left > right) adenopathy present. She has no cervical adenopathy. Neurological: She is alert and oriented to person, place, and time. Skin: Skin is warm, dry and intact. No rash noted. Psychiatric: She has a normal mood and affect. Her speech is normal and behavior is normal. Thoughtcontent normal. Vitals reviewed. Results for orders placed or performed in visit on 06/04/16 POC Rapid Strep A Result Value Ref Range Rapid Strep A Screen Negative Negative, VALID, INVALID, Not Performed Internal Control Passed Passed Lot Number [id number] Expiration Date 06/2017 Assessment/Plan Venessa was seen today for sinus problem and sore throat. Diagnoses and all orders for this visit: Acute recurrent pansinusitis - amoxicillin-clavulanate (AUGMENTIN) 875-125 MG per tablet; Take 1 tablet by mouth 2 (Two) Times aDay for 10 days. - PredniSONE (DELTASONE) 10 MG (21) tablet pack; Take by mouth Daily for 6 days. Sorethroat - POC Rapid Strep A documented in this encounter Plan of Treatment Not on file documented as of this encounter Procedures Procedure Name Priority Date/Time Associated Diagnosis Comments POCT RAPID STREP A Routine 06/04/2016 6: 26 PM EST Sorethroat documented in this encounter Results * POC Rapid Strep A (06/04/2016 6:26 PM EST) Rapid Strep A Screen Negative Negative, VALID, INVALID, Not Performed [facility] Internal Control Passed Passed [facility] Lot Number [id number] [facility] Expiration Date 06/2017 [facility] Other 06/04/2016 6:26 PM EST Titi Maryann V, HEEL FINISHER POINT OF CARE TEST ORDERABL ES Final Result [facility]
[address] [place] [address], documented in this encounter Visit Diagnoses Diagnosis Acute recurrent pansinusitis- Primary Sorethroat Acute pharyngitis documented in this encounter Care Teams Deckhand Maintenance Relationship Specialty Start Date End Date Provider, [place] [id number] PCP - General 11/06/15 11/02/16 documented as of this encounter
--- OUTSIDE RECORDS SUMMARY | 2024-06-30 22:09 | XMS_ITS | Encounter Summary ---
Author Organization [facility] Address [address] [place] [address] Care Team Providers Care Hair Mixer Name Role Phone Sushil Ferguson MD Primary Care Provider [phone] Encounter Details Date Type Department Care Team (Late st Contact Info) Description 05/02/2015 Office Visit Converted [facility] [address] [address] Sushil Ferguson MD [address] [place] [address] Social History Tobacco Use Types Packs/Day Years Used Date Smoking Tobacco: Never Assessed Comments Unknown Sex and Gender Information Value Date Recorded Sex Assigned at Not on file Legal Sex Female 11:20 AM EDT Gender Identity Not on file Sexual Orientation Not on file documented as of this encounter Last Filed Vital Signs Vital Sign Reading Time Taken Comments Blood Pressure 132/80 05/02/2015 1:37 PM EDT Pulse 75 05/02/2015 1:37 PM EDT Temperature 36.8 ??C (98.2 ??F) 05/02/2015 1:37 PM ED T Respiratory Rate 16 05/02/2015 1:37 PM EDT Oxygen Saturation 99% 05/02/2015 1:37 PM EDT Inhaled Oxygen Concentration - - Weight 92.5 kg (203 lb 15.9 oz) 05/02/2015 1:37 PM EDT Height 167.6 cm (5' 6 ) 05/02/2015 1:37 PM EDT Body Mass Index 32.93 05/02/2015 1:37 PM EDT documented in this encounter Progress Notes * Sushil Ferguson MD - 05/02/2015 1:30 PM EDT Chief Complaint F/U Results History of Present Illness HPI: The patient continues to have pain in the upper abdomen. She says this is not better. Her mid chest pain is better. She has not noticed any improvement with omeprazole. Each EGD did reveal gastritis. There is no ulceration. Previous chest x-ray was negative and her stress test was negative forany ischemia. Patient had a previous cholecystectomy in the per Dr. Parmar. We do note that she is had a mild leukocytosis dating back to at least 2011. Her recent laboratory studies were negative except for a white blood count of 15,000. Hemoglobin was 14 and her metabolic panel was normal. Chest x-ray was normal. Patient is had one colonoscopy in the past and that was done in 2007 and was a negative study. Review of Systems Constitutional: fatigue, but as noted in HPI and no fever. ENT: negative. Cardiovascular: negative. Respiratory: negative. Gastrointestinal: abdominal pain, but as noted in HPI. Genitourinary: negative. Musculoskeletal: negative. Integumentary and Breasts: negative. Neurological: negative. Psychiatric: negative. Active Problems 1. Asthmatic bronchitis (493.90) (J45.909) 2. Chest pain (786.50) (R07.9) 3. Dysphagia (787.20) (R13.10) 4. Elevated glucose (790.29) (R73.09) 5. Fatigue (780.79) (R53.83) 6. Intertrigo (695.89) (L30.4) 7. Neck pain (723.1) (M54.2) 8. SOB (shortness of breath) (786.05) (R06.02) Past Medical History ?? History of Acute sinusitis (461.9) (J01.90) ?? History of Colonoscopy (Fiberoptic) ?? History of chest pain (V13.89) (Z87.898) ?? History of obesity (V13.89) (Z86.39) ?? History of upper respiratory infection (V12.09) (Z87.09) ?? History of Lower back pain (724.2) (M54.5) ?? History of reported Pap smear ?? History of Yeast vaginitis (112.1) (B37.3) Surgical History ?? History of Cholecystectomy Family History ?? Family history of diabetes mellitus (V18.0) (Z83.3) ?? Family history of gastric cancer (V16.0) Social History ?? Former smoker (V15.82) (Z87.891) ?? marital history - currently Current Meds Medication Name Instruction Breo Ellipta 100-25 MCG/INH Inhalation Aerosol Powder Breath Activated INHALE 1 PUFFS Twice daily Lidocaine Viscous 2 % Mouth/Throat Solution Meloxicam 15 MG Oral Tablet TAKE 1 TABLET BY MOUTH DAILY TiZANidine HCl - 4 MG Oral Tablet TAKE 1 TABLET TWICE DAILY. Allergies 1. OxyCONTIN TB12 Vitals Signs [Data Includes: Current Encounter] Temperature: 98.2 F Heart Rate: 75 Respiration: 16 Systolic: 132 Diastolic: 80 Height: 5 ft 6 in Weight: 204 lb BMI Calculated: 32.93 BSA Calculated: 2.02 O2 Saturation: 99 Physical Exam Constitutional General appearance: No acute distress, well appearing and well nourished. Pulmonary Respiratory effort: No increased work of breathing or signs of respiratory distress. Auscultation of lungs: Clear to auscultation. Cardiovascular Auscultation of heart: Normal rate and rhythm, normal S1 and S2, without murmurs. Examination of extremities for edema and/or varicosities: Normal. Abdomen Abdomen: Abnormal. There is mild to moderate epigastric tenderness and mild tenderness at the rightupper quadrant. Assessment 1. Leucocytosis (288.60) (D72.829) 2. Abdominal pain, RUQ (789.01) (R10.11) Plan Abdominal pain, RUQ ?? Start: 500 MG Oral Capsule; TAKE 1 CAPSULE 3 TIMES DAILY ?? Start: Magnesium 40 MG Oral Capsule Delayed Release (NexIUM); TAKE ONE CAPSULE BY MOUTH EVERY DAY ?? In Office Venipuncture; Status:Complete; Done: 02May2015 Abdominal pain, RUQ, Leucocytosis ?? CBC With Auto Diff; Status:Resulted - Requires Verification; Done: 02May2015 02:34PM ?? Amylase; Status:Resulted - Requires Verification; Done: 02May2015 02:34PM US ABDOMEN COMPLETE - [id number]; Status:Hold For - Scheduling,Financial Auth Needed; Requested for:02May2015; Perform:To Be Determined Rad; Due:16May2015; Marked Important; Last Updated By:Elyssa Birch; 05/02/2015 3:17:51 PM;Ordered; For:Abdominal pain, RUQ, Leucocytosis; Ordered By:Sushil Ferugson; Discussion/Summary Recheck her CBC. Regarding the leukocytosis. Treat her with the Keflex 5 her milligrams 3 times a day for 7 days. Check an ultrasound the abdomen. Discontinue omeprazole and use instead Nexium 40 mg a day, #30 with no refill. Return to see me in one month. End of Encounter Meds Medication Name Instruction Breo Ellipta 100-25 MCG/INH Inhalation Aerosol Powder Breath Activated INHALE 1 PUFFS Twice daily Cephalexin 500 MG Oral Capsule TAKE 1 CAPSULE 3 TIMES DAILY. Esomeprazole Magnesium 40 MG Oral Capsule Delayed Release (NexIUM) TAKE ONE CAPSULE BY MOUTH EVERY DAY Lidocaine Viscous 2 % Mouth/Throat Solution Meloxicam 15 MG Oral Tablet TAKE 1 TABLET BY MOUTH DAILY TiZANidine HCl - 4 MG Oral Tablet TAKE 1 TABLET TWICE DAILY. Patient Care Team Care Hair Mixer Role Specialty Office Number SUSHIL FERGUSON Family Medicine Future Appointments Date/Time Provider Specialty Site 06/06/2015 01:30 PM Sushil Ferguson M.D. Family Medicine [facility] Scribed for Sushil Ferguson, by Elyssa Birch. 05/02/2015 2:11 PM ISushil, personally performed the services described in this documentation, as scribed by Elyssa Birch in my presence, and it is both accurate and complete. Signatures Electronically signed by : Elyssa Birch, ; May 02 2015 2:30PM EST (Co-author) Electronically signed by : Sushil Ferguson M.D.; May 03 2015 3:35PM EST (Author) documented in this encounter Miscellaneous Notes * Telephone Encounter - Sushil Ferguson MD - 05/02/2015 1:30 PM EDT Message Recorded as Task Date: 05/02/2015 04:46 PM, Created By: Luzma Garcia Task Name: Medication Question Assigned To: Elyssa Birch Regarding Patient: December, Status: Active Comment: Luzma Garcia - 02 May 2015 4:46 PM TASK CREATED Caller: Self; ; PT CALLED [facility] SAID DID NOT GET ANTIBIOTIC PLSE ADVISE THX RX- [facility] IN [place], [place] Elyssa Birch - 02 May 2015 4:52 PM TASK EDITED Rx resent for Cephalexin 500 mg tid # 21per dr ferguson/Chari pt notified/Chari Signatures Electronically signed by : Elyssa Birch, ; May 02 2015 4:54PM EST (Author) documented in this encounter Plan of Treatment Not on file documented as of this encounter Visit Diagnoses Not on filedocumented in this encounter Care Teams Hair Mixer Relationship Specialty Start Date End Date Sushil Ferguson MD PCP - General 03/06/15 10/28/15 documented as of this encounter
--- OUTSIDE RECORDS SUMMARY | 2024-06-30 22:09 | XMS_ITS | Encounter Summary ---
Author Organization [facility] Address [address] [place] [address] Care Team Providers Care Vehicle Controls Engineer Name Role Phone Sushil Fry MD Primary Care Provider [phone] Encounter Details Date Type Department Care Team (Late st Contact Info) Description 06/06/2015 Office Visit Converted [facility] [address] [address] Sushil Fry MD [address] [place] [address] Social History Tobacco Use Types Packs/Day Years Used Date Smoking Tobacco: Never Assessed Comments Unknown Sex and Gender Information Value Date Recorded Sex Assigned at Not on file Legal Sex Female 11:20 AM EDT Gender Identity Not on file Sexual Orientation Not on file documented as of this encounter Last Filed Vital Signs Vital Sign Reading Time Taken Comments Blood Pressure 110/68 06/06/2015 2:57 PM EST Pulse 67 06/06/2015 2:57 PM EST Temperature 36.6 ??C (97.9 ??F) 06/06/2015 2:57 PM ES T Respiratory Rate 16 06/06/2015 2:57 PM EST Oxygen Saturation 99% 06/06/2015 2:57 PM EST Inhaled Oxygen Concentration - - Weight 91.7 kg (202 lb 4 oz) 06/06/2015 2:57 PM EST Height 167.6 cm (5' 6 ) 06/06/2015 2:57 PM EST Body Mass Index 32.64 06/06/2015 2:57 PM EST documented in this encounter Progress Notes * Sushil Fry MD - 06/06/2015 3:00 PM EST Chief Complaint 1 month F/U ST, [place] x 2-4 days History of Present Illness HPI: At last visit. Recheck her CBC. Regarding the leukocytosis. Treat her with the Keflex 5 her milligrams 3 times a day for 7 days. Check an ultrasound the abdomen. Discontinue omeprazole and use instead Nexium 40 mg a day, #30 with no refill. Return to see me in one month. December is here today to follow up on her Leukocytosis. WBC in February was 15.69 and was down some in April to 13.66. Refer to Hematology. Still having abdominal pain but has improved some. I keep a dull pain constantly and times it's worse. Even wakes me up at night Nexium did not help much. Noticed that she had some moderate pain in one spot that hurt for two weeks after the Ultrasound. Schedule Ct scan of abdomen with and without contrast . Also C/O of sore throat, headache and chills but denies any fever for the past 2-3 days. Strep Pharyngitis - Amoxicillin 500 mg three times a day. Review of Systems Constitutional: chills, but as noted in HPI and no fever. ENT: sore throat and sinus pain and pressure., but as noted in HPI. Cardiovascular: negative. Respiratory: negative. Gastrointestinal: negative. Genitourinary: negative. Musculoskeletal: negative. Integumentary and Breasts: negative. Neurological: negative. Psychiatric: negative. Active Problems 1. Abdominal pain, RUQ (789.01) (R10.11) 2. Asthmatic bronchitis (493.90) (J45.909) 3. Chest pain (786.50) (R07.9) 4. Dysphagia (787.20) (R13.10) 5. Elevated glucose (790.29) (R73.09) 6. Fatigue (780.79) (R53.83) 7. Intertrigo (695.89) (L30.4) 8. Leucocytosis (288.60) (D72.829) 9. Neck pain (723.1) (M54.2) 10. SOB (shortness of breath) (786.05) (R06.02) Past [...] Breath Activated INHALE 1 PUFFS Twice daily Esomeprazole Magnesium 40 MG Oral Capsule Delayed Release TAKE ONE CAPSULE BY MOUTH EVERY DAY Lidocaine Viscous 2 % Mouth/Throat Solution Meloxicam 15 MG Oral Tablet TAKE 1 TABLET BY MOUTH DAILY TiZANidine HCl - 4 MG Oral Tablet TAKE 1 TABLET TWICE DAILY. Allergies 1. OxyCONTIN TB12 Vitals Signs [Data Includes: Current Encounter] Temperature: 97.9 F Heart Rate: 67 Respiration: 16 Systolic: 110 Diastolic: 68 Height: 5 ft 6 in Weight: 202 lb 4 oz BMI Calculated: 32.64 BSA Calculated: 2.01 O2 Saturation: 99 Results/Data In Office Rapid Strep 06Jun2015 03:14PM Sushil Fry Test Name Result Flag Reference Rapid Strep Result Positive A Assessment 1. Abdominal pain, RUQ (789.01) (R10.11) 2. Fatigue (780.79) (R53.83) 3. Leucocytosis (288.60) (D72.829) 4. Adenopathy, cervical (785.6) (R59.0) 5. Strep pharyngitis (034.0) (J02.0) Plan Adenopathy, cervical, Fatigue, Leucocytosis ?? CBC With Auto Diff; Status:Canceled; ?? Yuki Glasgow Acute Panel; Status:Canceled; Fatigue, Leucocytosis ?? Follow-up visit in 1 month Evaluation and Treatment Follow-up Status: Hold For - Scheduling Requested for: 06Jun2015 Leucocytosis ?? Hematology Referral Physician Referral Consult Status: Need Information - Required information Requested for: 06Jun2015 Strep pharyngitis ?? Start: 500 MG Oral Capsule; TAKE 1 CAPSULE 3 TIMES DAILY UNTIL GONE CT ABDOMEN PELVIS W WO CONTRAST - 76041; Status:Need Information - Required information; Requested for:06Jun2015; Perform:To Be Determined Rad; Due:20Jun2015; Marked Important; Last Updated By:Elyssa Birch; 06/06/2015 3:51:28 PM;Ordered; For:Abdominal pain, RUQ, Fatigue; Ordered By:Sushil Fry; Discussion/Summary Refer to Hematology Schedule Ct scan of abdomen with and without contrast. Amoxicillin 500 mg for strep pharyngitis. this is the likely cause of the left submandibular adenopathy. Follow up in 4 weeks. End of Encounter Meds Medication Name Instruction Amoxicillin 500 MG Oral Capsule TAKE 1 CAPSULE 3 TIMES DAILY UNTIL GONE. Breo Ellipta 100-25 MCG/INH Inhalation Aerosol Powder Breath Activated INHALE 1 PUFFS Twice daily Esomeprazole Magnesium 40 MG Oral Capsule Delayed Release (NexIUM) TAKE ONE CAPSULE BY MOUTH EVERY DAY Lidocaine Viscous 2 % Mouth/Throat Solution Meloxicam 15 MG Oral Tablet TAKE 1 TABLET BY MOUTH DAILY TiZANidine HCl - 4 MG Oral Tablet TAKE 1 TABLET TWICE DAILY. Patient Care Team Care Vehicle Controls Engineer Role Specialty Office Number SUSHIL FRY Family Medicine Scribed for Sushil Fry, by Elyssa Birch. 06/06/2015 3:12 PM ISushil, personally performed the services described in this documentation, as scribed by Elyssa Birch in my presence, and it is both accurate and complete. Signatures Electronically signed by : Elyssa Birch, ; Jun 06 2015 3:28PM EST (Co-author) Electronically signed by : Sushil Fry M.D.; Jun 06 2015 4:28PM EST (Author) documented in this encounter Miscellaneous Notes * Letter - Sushil Fry MD - 06/06/2015 3:00 PM EST Chief Complaint 1 month F/U ST, [place] x 2-4 days History of Present Illness At last visit. Recheck her CBC. Regarding the leukocytosis. Treat her with the Keflex 5 her milligrams 3 times a day for 7 days. Check an ultrasound the abdomen. Discontinue omeprazole and use instead Nexium 40 mg a day, #30 with no refill. Return to see me in one month. December is here today to follow up on her Leukocytosis. WBC in February was 15.69 and was down some in April to 13.66. Refer to Hematology. Still having abdominal pain but has improved some. I keep a dull pain constantly and times it's worse. Even wakes me up at night Nexium did not help much. Noticed that she had some moderate pain in one spot that hurt for two weeks after the Ultrasound. Schedule Ct scan of abdomen with and without contrast . Also C/O of sore throat, headache and chills but denies any fever for the past 2-3 days. Strep Pharyngitis - Amoxicillin 500 mg three times a day. Review of Systems Constitutional: chills, but as noted in HPI and no fever. ENT: sore throat and sinus pain and pressure., but as noted in HPI. Cardiovascular: negative. Respiratory: negative. Gastrointestinal: negative. Genitourinary: negative. Musculoskeletal: negative. Integumentary and Breasts: negative. Neurological: negative. Psychiatric: negative. Active Problems 1. Abdominal pain, RUQ (789.01) (R10.11) 2. Asthmatic bronchitis (493.90) (J45.909) 3. Chest pain (786.50) (R07.9) 4. Dysphagia (787.20) (R13.10) 5. Elevated glucose (790.29) (R73.09) 6. Fatigue (780.79) (R53.83) 7. Intertrigo (695.89) (L30.4) 8. Leucocytosis (288.60) (D72.829) 9. Neck pain (723.1) (M54.2) 10. SOB (shortness of breath) (786.05) (R06.02) Past [...] Breath Activated INHALE 1 PUFFS Twice daily Esomeprazole Magnesium 40 MG Oral Capsule Delayed Release TAKE ONE CAPSULE BY MOUTH EVERY DAY Lidocaine Viscous 2 % Mouth/Throat Solution Meloxicam 15 MG Oral Tablet TAKE 1 TABLET BY MOUTH DAILY TiZANidine HCl - 4 MG Oral Tablet TAKE 1 TABLET TWICE DAILY. Allergies 1. OxyCONTIN TB12 Vitals Signs [Data Includes: Current Encounter] Temperature: 97.9 F Heart Rate: 67 Respiration: 16 Systolic: 110 Diastolic: 68 Height: 5 ft 6 in Weight: 202 lb 4 oz BMI Calculated: 32.64 BSA Calculated: 2.01 O2 Saturation: 99 Results/Data In Office Rapid Strep 06Jun2015 03:14PM Sushil Fry Test Name Result Flag Reference Rapid Strep Result Positive A Assessment 1. Abdominal pain, RUQ (789.01) (R10.11) 2. Fatigue (780.79) (R53.83) 3. Leucocytosis (288.60) (D72.829) 4. Adenopathy, cervical (785.6) (R59.0) 5. Strep pharyngitis (034.0) (J02.0) Plan Adenopathy, cervical, Fatigue, Leucocytosis ?? CBC With Auto Diff; Status:Canceled; ?? Yuki Glasgow Acute Panel; Status:Canceled; Fatigue, Leucocytosis ?? Follow-up visit in 1 month Evaluation and Treatment Follow-up Status: Hold For - Scheduling Requested for: 06Jun2015 Leucocytosis ?? Hematology Referral Physician Referral Consult Status: Need Information - Required information Requested for: 06Jun2015 Strep pharyngitis ?? Start: 500 MG Oral Capsule; TAKE 1 CAPSULE 3 TIMES DAILY UNTIL GONE CT ABDOMEN PELVIS W WO CONTRAST - 60454; Status:Need Information - Required information; Requested for:06Jun2015; Perform:To Be Determined Rad; Due:20Jun2015; Marked Important; Last Updated By:Elyssa Birch; 06/06/2015 3:51:28 PM;Ordered; For:Abdominal pain, RUQ, Fatigue; Ordered By:Sushil Fry; Discussion/Summary Refer to Hematology Schedule Ct scan of abdomen with and without contrast. Amoxicillin 500 mg for strep pharyngitis. this is the likely cause of the left submandibular adenopathy. Follow up in 4 weeks. End of Encounter Meds Medication Name Instruction Amoxicillin 500 MG Oral Capsule TAKE 1 CAPSULE 3 TIMES DAILY UNTIL GONE. Breo Ellipta 100-25 MCG/INH Inhalation Aerosol Powder Breath Activated INHALE 1 PUFFS Twice daily Esomeprazole Magnesium 40 MG Oral Capsule Delayed Release (NexIUM) TAKE ONE CAPSULE BY MOUTH EVERY DAY Lidocaine Viscous 2 % Mouth/Throat Solution Meloxicam 15 MG Oral Tablet TAKE 1 TABLET BY MOUTH DAILY TiZANidine HCl - 4 MG Oral Tablet TAKE 1 TABLET TWICE DAILY. Patient Care Team Care Vehicle Controls Engineer Role Specialty Office Number SUSHIL FRY Family [facility] Scribed for Sushil Fry, by Elyssa Birch. 06/06/2015 3:12 PM ISushil, personally performed the services described in this documentation, as scribed by Elyssa Birch in my presence, and it is both accurate and complete. Signatures Electronically signed by : Elyssa Birch, ; Jun 06 2015 3:28PM EST (Co-author) Electronically signed by : Sushil Fry M.D.; Jun 06 2015 4:28PM EST (Author) documented in this encounter Plan of Treatment Not on file documented as of this encounter Visit Diagnoses Not on filedocumented in this encounter Care Teams Vehicle Controls Engineer Relationship Specialty Start Date End Date Sushil rFy MD PCP - General 03/06/15 10/28/15 documented as of this encounter
--- OUTSIDE RECORDS SUMMARY | 2024-06-30 22:09 | XMS_ITS | Encounter Summary ---
Author Organization [facility] Address [address] [place] [address] Care Team Providers Care Senior Director Finance Name Role Phone Sushil Fyr MD Primary Care Provider [phone] Reason for Referral * Diagnostic Imaging (Routine) - Closed Specialty Diagnoses / Procedures Referred By Contac t Referred To Contact Radiology Diagnoses Achilles tendinitis, right leg Procedures XR Foot 3+ View Right Sushil Fry MD Phone: tel: fax: Referral ID Status Reason Start Date Expiration Date Visits Re quested Visits Authorized [id number] Closed 10/28/2016 10/28/2017 1 1 Reason for Visit * Diagnostic Imaging (Routine) - Closed Specialty Diagnoses / Procedures Referred By Contac t Referred To Contact Radiology Diagnoses Achilles tendinitis, right leg Procedures XR Foot 3+ View Right Sushil Fry MD Phone: tel: fax: Referral ID Status Reason Start Date Expiration Date Visits Re quested Visits Authorized [id number] Closed 10/28/2016 10/28/2017 1 1 Encounter Details Date Type Department Care Team (Latest Contact Info) Description 11/03/2016 2:15 PM EDT - 11/03/2016 11:59 PM EDT Hospital Encounter [facility] AT [address] [place] [address] Sushil Fry MD [address] [place] [address] Achilles tendinitis, right leg Discharge Disposition: Home or Self Care Social History Tobacco Use Types Packs/Day Years Used Date Smoking Tobacco: Every Day Cigarettes Comments Unknown Sex and Gender Information Value Date Recorded Sex Assigned at Not on file Legal Sex Female 11:20 AM EDT Gender Identity Not on file Sexual Orientation Not on file documented as of this encounter Medications at Time of Discharge meloxicam (MOBIC) 15 MG tabletIndications :Achilles tendinitis, right leg Take 1 tablet by mouth Daily. 15 tablet 1 10/28/2016 03/24/2017 documented as of this encounter Plan of Treatment Not on file documented as of this encounter Procedures Procedure Name Priority Date/Time Associated Diagnosis Comments XR FOOT 3+ VW RIGHT Routine 11/03/2016 2 :31 PM EDT Achilles tendinitis, right leg documented in this encounter Results * XR Foot 3+ View Right (11/03/2016 2:31 PM EDT) Anatomical Region Laterality Modality Lower Extremities, Foot Right Radiogra [facility] Imaging 11/03/2016 6:25 PM EDT Impressions 11/04/2016 [...] encounter Visit Diagnoses Diagnosis Achilles tendinitis, right leg documented in this encounter Care Teams Senior Director Finance Relationship Specialty Start Date End Date Sushil Fry MD PCP - General Family Medicine 11/03/16 11/19/19 documented as of this encounter
--- OUTSIDE RECORDS SUMMARY | 2024-06-30 22:09 | XMS_ITS | Encounter Summary ---
Author Organization [facility] Address [address] [place] [address] Care Team Providers Care Machine Scallop Cutter Name Role Phone Sushil Fry MD Primary Care Provider [phone] Encounter Details Date Type Department Care Team (Late st Contact Info) Description 06/13/2015 10:29 AM EST - 06/23/2015 11:59 PM [facility] Hospital Encounter [facility] AT [facility] [address] [facility] [address] [place] [address] Giles Drew MD [address] [facility] [address] [place] [address] Discharge Disposition: Home or Self Care Social History Tobacco Use Types Packs/Day Years Used Date Smoking Tobacco: Never Assessed Comments Unknown Sex and Gender Information Value Date Recorded Sex Assigned at Not on file Legal Sex Female 11:20 AM EDT Gender Identity Not on file Sexual Orientation Not on file documented as of this encounter H&P Notes * Interface, See Report - 06/13/2015 10:29 AM EST [id number] : 1970 DATE OF VISIT: 07/21/2015 PROBLEM LIST: 1. Mild leukocytosis with a normal differential, likely secondary to chronic tobacco use. 2. Epigastric pain, unclear cause. CT scan of the chest, abdomen, and pelvis was negative for any issues. REASON FOR CONSULTATION: Follow-up for white count. HISTORY OF PRESENT ILLNESS: The patient is a very pleasant, 45-year-old lady who returns today for follow-up of her mild leukocytosis. Since I initially saw her, she has had a CAT scan of the abdomen and pelvis to make sure she does not have anything undue going on in her abdomen due to her symptoms and that seemed to be normal. There are no other issues ongoing at this time for her. She is tired of being poked and prodded at this point. I repeated her CBC today which shows a white count of 12.60, however, her differential is entirely in the normal range. As such, she does not need any further evaluation unless there is a significant rise in those numbers. ASSESSMENT AND PLAN: I gave her the option of seeing me once a year or follow-up with Dr. Fry and she would prefer to be just seen by primary care as needed and will call me if there is any change in her overall health. I think that is very reasonable at this stage and if she has any can cause for concern, she can always give me a call. I spent 15 minutes with the patient and more than 50% was spent discussing her care plan going forward. Giles Drew MD AP/rxrjs Voice Record ID#[id number] Document ID#[id number] Rev. #0 cc: Sushil Fry MD* December Visit ID: [id number] : 1970 DATE OF VISIT: 07/21/2015 Page 1 of 2 Hematology Oncology [address] [address] PHONE: [phone] FAX: [phone] Page 1 of 1 DO NOT TEXT EDIT THIS LINE :[facility]:[id number]: Authenticated by GILES DREW MD On 07/22/2015 11:28:47 AM documented in this encounter Plan of Treatment Not on file documented as of this encounter Procedures Procedure Name Priority Date/Time Associated Diagnosis Comments SEDIMENTATION RATE Routine 06/13/2015 11 :54 AM EST CBC AND DIFFERENTIAL Routine 06/13/2015 11:54 AM EST C-REACTIVE PROTEIN Routine 06/13/2015 11 :54 AM EST documented in this encounter Results * Sedimentation rate (06/13/2015 11:54 AM EST) Pathologist [facility] Sed Rate 9 0 - 20 mm/hr [facility] Blood specimen (specimen) 06/13/2015 11:54 AM EST 06/13/2015 11:54 AM EST Narrative [facility] - 06/13/2015 1:04 PM EST Specimen Type : Blood Giles Drew MD LAB BLOOD ORDERABLES Lisbet l Result [facility]
[address] [place] [address], * C-reactive protein (06/13/2015 11:54 AM EST) [facility] C-Reactive Protein 1.4 0.000 - 10.000 mg/L [facility] Blood specimen (specimen) 06/13/2015 11:54 AM EST 06/13/2015 11:55 AM EST Narrative [facility] - 06/13/2015 12:43 PM EST Specimen Type : Serum 1 Giles Drew MD LAB BLOOD ORDERABLES Lisbet l Result [facility]
[address] [place] [address], * (ABNORMAL) CBC and Differential (06/13/2015 11:54 AM EST) [facility] WBC 11.99(H) 3.50 - 10.80 K/[facility] LABORATORY RBC 4.66 3.89 - 5.14 M/[facility] LABORATORY Hemoglobin 13.5 11.5 - 15.5 g/dL [facility] Hematocrit 40.3 34.5 - 44.0 % [facility] MCV 86.5 80.0 - 99.0 fL [facility] MCH 29.0 27.0 - 31.0 pg [facility] MCHC 33.5 32.0 - 36.0 g/dL [facility] RDW-CV 12.7 11.3 - 14.5 % [facility] Platelets 215 150 - 450 K[facility] Neutrophils Absolute 6.41 1.50 - 8.30 [facility] Lymphocytes Absolute 4.65 0.60 - 4.80 [facility] Monocytes Absolute 0.72 0.00 - 1.00 [facility] Eosinophils Absolute 0.17 0.10 - 0.30 [facility] Basophils Absolute 0.02 0.00 - 0.20 [facility] Neutrophil Rel % 53.4 41.0 - 71.0 % [facility] Lymphocyte Rel % 38.8 24.0 - 44.0 % [facility] Monocyte Rel % 6.0 0.0 - 12.0 % [facility] Eosinophil Rel % 1.4 0.0 - 3.0 % [facility] Basophil Rel % 0.2 0.0 - 1.0 % [facility] Immature Granulocyte Rel % 0.2 0.0 - 0.6 % [facility] Blood specimen (specimen) 06/13/2015 11:54 AM EST 06/13/2015 11:54 AM EST Narrative [facility] - 06/13/2015 12:30 PM EST Specimen Type : Blood us Giles Drew MD LAB BLOOD ORDERABLES Lisbet dykes Result [facility]
[address] [place] [address], documented in this encounter Visit Diagnoses Not on filedocumented in this encounter Care Teams Machine Scallop Cutter Relationship Specialty Start Date End Date Sushil Fry MD PCP - General 03/06/15 10/28/15 documented as of this encounter
--- OUTSIDE RECORDS SUMMARY | 2024-06-30 22:09 | XMS_ITS | Encounter Summary ---
Author Organization [facility] Address [address] [place] [address] Care Team Providers Care Slide Machine Tender Name Role Phone Sushil Fry MD Primary Care Provider [phone] Encounter Details Date Type Department Care Team (Late st Contact Info) Description 07/16/2017 11:30 AM EST Flu Shot [facility] [address] [address] Social History Tobacco Use Types Packs/Day Years Used Date Smoking Tobacco: Every Day Cigarettes Smokeless Tobacco: Never Comments:Rx for Chantix star ting pack Alcohol Use Standard Drinks/Week Comments No [...] on filedocumented in this encounter Care Teams Slide Machine Tender Relationship Specialty Start Date End Date Sushil Fry MD PCP - General Family Medicine 11/03/16 11/19/19 documented as of this encounter
--- OUTSIDE RECORDS SUMMARY | 2024-06-30 22:09 | XMS_ITS | Encounter Summary ---
Author Organization [facility] Address [address] [place] [address] Care Team Providers Care Carpet Sewing Machine Operator Name Role Phone Sierra Blanchard MD Primary Care Provider [phone] Reason for Visit * Reason Comments Back Pain * Consultation (Routine) - Closed Specialty Diagnoses / Procedures Referred By Contac t Referred To Contact Neurosurgery Diagnoses Low back pain radiating to both legs Referring, [place] [address] [place] [address] [place], [place] [address] Phone: tel: fax: Referral ID Status Reason Start Date Expiration Date Visits Re quested Visits Authorized [id number] Closed 11/20/2019 11/19/2020 1 1 Encounter Details Date Type Department Care Team (Late st Contact Info) Description 12/13/2019 2:00 PM EDT Telemedicine [facility] NEUROSURGERY [address] [phone] Milad Doherty MD [address] [place] [address] 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 Do you consent to use a video/audio connection for your medical care today? YES NAME: VENESSA Carol [facility] DOS: 12/13/2019 : 1970 PCP: Sierra Collado Chief Complaint: Chief Complaint Patient presents with ??? Back Pain History of Present Illness: 49 y.o. female This is a 49-year-old female known to me she was treated in 2013 for a right- sided L5-S1 lumbar disc surgery she had significant pain that she characterized as 12 out of 10 and after surgery % improvement that being said she had been seen in 2010 she had pain in her back at that point in time and was treated nonsurgically She reports a history of increasing back pain it occurred about 2 weeks ago it is mostly back pain but there is components in the leg and she had some numbness in her foot she denies bowel bladder incontinence its out of the normal and she is completing a Medrol dose pack She denies any neurogenic claudication symptoms and she has good strength in her lower extremities she is here for evaluation PMHX Allergies: Allergies Allergen Reactions ??? Oxycontin [Oxycodone Hcl] Anaphylaxis Medications Current Outpatient Medications: ??? Acetaminophen (Tylenol) 325 MG capsule, , Disp: , Rfl: ??? benzonatate (TESSALON PERLES) 100 MG capsule, Take 1 capsule by mouth 3 (Three) Times a Day As Needed for Cough., Disp: 15 capsule, Rfl: 1 ??? cetirizine (zyrTEC) 10 MG tablet, Take 10 mg by mouth Daily., Disp: , Rfl: ??? methylPREDNISolone (MEDROL, RALEIGH,) 4 MG tablet, TAKE 6 TABLETS ON DAY 1 DIRECTED ON PACKAGE AND DECREASE BY 1 TAB EACH DAY FOR A TOTAL OF 6 DAYS, Disp: , Rfl: ??? TiZANidine (ZANAFLEX) 2 MG capsule, TAKE 1 CAPSULE BY MOUTH THREE TIMES A DAY NEEDED FOR 7 DAYS, Disp: , Rfl: ? ? varenicline (CHANTIX STARTING MONTH ) 0.5 MG X 11 & 1 MG X 42 tablet, Take 0.5 mg one daily on days 1-2 and 0.5 mg twice daily on days 4-7. Then 1 mg twice daily for a total of 12 weeks., Disp: 53 tablet, Rfl: 0 Past Medical History: Past Medical History: Diagnosis Date ??? Allergic ??? Bronchitis ??? Otitis media ??? Sinusitis ??? Urinary tract infection Past Surgical History: Past Surgical History: Procedure Laterality Date ??? INCISION AND DRAINAGE ABSCESS 2011 ??? LAPAROSCOPIC CHOLECYSTECTOMY 1999 ??? LASIK 2004 ??? LUMBAR DISCECTOMY Right 04/04/2013 Laminectomy, discectomy L5-S1- Dr. Milad Doherty. Social Hx: Social History Tobacco Use ??? Smoking status: Current Every Day Smoker Packs/day: 0.25 Types: Cigarettes ??? Smokeless tobacco: Never Used ??? Tobacco comment: Rx for Chantix starting pack Substance Use Topics ??? Alcohol use: No ??? Drug use: No Family Hx: History reviewed. No pertinent family history. Review of Systems: Review of Systems Review of systems is negative for any cauda equina type of syndromes Physical Examination: There were no vitals filed for this visit. General Appearance: Well developed, well nourished, well groomed, alert, and cooperative. Neurological examination: Neurologic Exam Reports no weakness appears in no apparent distress on video conferencing call awake alert follows commands cranial nerves grossly intact sitting comfortably Review of Imaging/DATA: Old imaging 1999 identified and reviewed lumbar flexion-extension from back then stable Diagnoses/Plan: Ms. Dumont is a 49 y.o. female 1. Chronic lumbar degenerative disc history of L5-S1 discectomy on the right lumbar flexion-extension film unremarkable back in 2013 did very well with surgery has recurrence of symptomatology referrable to S1 radiculitis but it is 50 back pain 50 leg pain has been through conservative management recommended completion of Medrol Dosepak ongoing nonsteroidal and Tylenol usage and referral to interventional pain management for L5-S1 and/or caudal epidural steroid block If symptoms persist will obtain MRI lumbar spine with and without contrast lumbar flexion-extensionfilm I explained the signs and symptoms to look for to necessitate a referral back We will see in person in 4 to 6 weeks and sooner if symptoms change documented in this encounter Plan of Treatment Not on file documented as of this encounter Visit Diagnoses Diagnosis Sciatica associated with disorder of lumbar spine- Primary documented in this encounter Care Teams Carpet Sewing Machine Operator Relationship Specialty Start Date End Date Sierra Blanchard MD PCP - General Family Medicine 11/20/19 documented as of this encounter
--- OUTSIDE RECORDS SUMMARY | 2024-06-30 22:09 | XMS_ITS | Encounter Summary ---
[facility] [address] [place] [address] Care Team Providers Care Umbrella Cutter Name Role Phone Sushil Fry MD Primary Care Provider [phone] Encounter Details Date Type Department Care Team (Latest Contact Info) Description 05/02/2015 8:56 AM EDT - 05/02/2015 11:59 PM EDT Hospital Encounter [facility] DEPARTMENT [address] [place] [phone] Sushil Fry MD [address] [place] [address] Discharge Disposition: Home or Self Care Social [...] Name Priority Date/Time Associated Diagnosis Comments CBC AND DIFFERENTIAL Routine 05/02/2015 2:34 PM EDT AMYLASE Routine 05/02/2015 2:34 PM EDT documented in this encounter Results * Amylase (05/02/2015 2:34 PM EDT) Amylase 49 30 - 118 Units/L [facility] Blood specimen (specimen) 05/02/2015 2:34 PM EDT 05/02/2015 7:52 PM EDT Narrative [facility] - 05/02/2015 9:14 PM EDT Specimen Type : Blood Sushil Fry MD LAB BLOOD ORDERABLES Final Re sult [facility] [address] [place] [address], * (ABNORMAL) CBC and Differential (05/02/2015 2:34 PM EDT) WBC 13.66(H) 3.50 - 10.80 K/[facility] RBC 4.53 3.89 - 5.14 /[facility] Hemoglobin 13.2 11.5 - 15.5 g/dL [facility] Hematocrit 40.3 34.5 - 44.0 % [facility] MCV 89.0 80.0 - 99.0 fL [facility] MCH 29.1 27.0 - 31.0 pg [facility] MCHC 32.8 32.0 - 36.0 g/dL [facility] RDW-CV 12.7 11.3 - 14.5 % [facility] Platelets 228 150 - 450 [facility] Neutrophils Absolute 7.86 1.50 - 8.30 [facility] Lymphocytes Absolute 4.76 0.60 - 4.80 [facility] Monocytes Absolute 0.81 0.00 - 1.00 [facility] Eosinophils Absolute 0.17 0.10 - 0.30 [facility] Basophils Absolute 0.03 0.00 - 0.20 [facility] Neutrophil Rel % 57.7 41.0 - 71.0 % [facility] Lymphocyte Rel % 34.8 24.0 - 44.0 % [facility] Monocyte Rel % 5.9 0.0 - 12.0 % [facility] Eosinophil Rel % 1.2 0.0 - 3.0 % [facility] Basophil Rel % 0.2 0.0 - 1.0 % [facility] Immature Granulocyte Rel % 0.2 0.0 - 0.6 % [facility] Blood specimen (specimen) 05/02/2015 2:34 PM EDT 05/02/2015 7:52 PM EDT Narrative [facility] - 05/02/2015 8:37 PM EDT Specimen Type : Blood Sushil Fry MD LAB BLOOD ORDERABLES Final Re sult [facility] [address] [place] [address], documented in this encounter Visit Diagnoses Not on filedocumented in this encounter Care Teams Umbrella Cutter Relationship Specialty Start Date End Date Sushil Fry MD PCP - General 03/06/15 10/28/15 documented as of this encounter
--- OUTSIDE RECORDS SUMMARY | 2024-06-30 22:09 | XMS_ITS | Encounter Summary ---
Author Organization [facility] Address [address] [place] [address] Care Team Providers Care Anesthetic Assistant Name Role Phone Sushil Fry MD Primary Care Provider [phone] Encounter Details Date Type Department Care Team (Latest Contact Info) Description 07/02/2015 8:24 AM EST - 07/02/2015 11:59 PM EST Hospital Encounter [facility] DEPARTMENT [address] [place] [phone] Sushil Fry MD [address] [place] [address] Discharge Disposition: Home or Self Care Social [...] Procedure Name Priority Date/Time Associated Diagnosis Comments LIPASE Routine 07/02/2015 4:05 PM EST AMYLASE Routine 07/02/2015 4:05 PM EST documented in this encounter Results * Lipase (07/02/2015 4:05 PM EST) Lipase 34 6 - 51 Units/L [facility] Blood specimen (specimen) 07/02/2015 4:05 PM EST 07/02/2015 9:04 PM EST Narrative [facility] - 07/02/2015 9:45 PM EST Specimen Type : Blood Sushil Fry MD LAB BLOOD ORDERABLES Final Re sult Performing Organization Address City/[facility]/ZIP Co de Phone Number [facility]
[address] [place] [address], * Amylase (07/02/2015 4:05 PM EST) Amylase 52 30 - 118 Units/L [facility] Blood specimen (specimen) 07/02/2015 4:05 PM EST 07/02/2015 9:04 PM EST [facility] - 07/02/2015 9:45 PM EST Specimen Type : Blood Sushil Fry MD LAB BLOOD ORDERABLES Final Re sult Performing Organization Address [facility] Co de Phone Number [facility]
[address] [place] [address], documented in this encounter Visit Diagnoses Not on filedocumented in this encounter Care Teams Anesthetic Assistant Relationship Specialty Start Date End Date Sushil Fry MD PCP - General 03/06/15 10/28/15 documented as of this encounter
--- OUTSIDE RECORDS SUMMARY | 2024-06-30 22:09 | XMS_ITS | Encounter Summary ---
[facility] Address [address] [place] [address] Care Team Providers Care Senior Linux Systems Administrator Name Role Phone Sushil Fry MD Primary Care Provider [phone] Encounter Details Date Type Department Care Team (Late st Contact Info) Description 07/02/2015 Office Visit Converted [facility] FAMILY MEDICINE [address] [phone] Sushil Fry MD [address] [place] [address] Social History Tobacco Use Types Packs/Day Years Used Date Smoking Tobacco: Never Assessed Comments Unknown Sex and Gender Information Value Date Recorded Sex Assigned at Not on file Legal Sex Female 11:20 AM EDT Gender Identity Not on file Sexual Orientation Not on file documented as of this encounter Last Filed Vital Signs Vital Sign Reading Time Taken Comments Blood Pressure 118/78 07/02/2015 3:26 PM EST Pulse 77 07/02/2015 3:26 PM EST Temperature 36.9 ??C (98.4 ??F) 07/02/2015 3:26 PM ES T Respiratory Rate 16 07/02/2015 3:26 PM EST Oxygen Saturation 97% 07/02/2015 3:26 PM EST Inhaled Oxygen Concentration - - Weight 93.9 kg (207 lb 0.2 oz) 07/02/2015 3:26 P M EST Height - - Body Mass Index 33.41 06/06/2015 2:57 PM EST documented in this encounter Progress Notes * Sushil Fry MD - 07/02/2015 2:45 PM EST Chief Complaint sore throat, achy and place on face History of Present Illness HPI: The patient presents today with c/o ST and body aches. Also a blistering lesion of right upper lip that is itchy and painful since Tuesday. Inside mouth issore as well. The patient saw the oncologist regarding her elevated white blood count. He felt that it was secondary to smoking. The patient continues to have some. Umbilical pain that comes and goes. The oncologist was concerned about that. No change in her bowel habits and no nausea. No weight loss. I believe this to be shingles. Given Rx for Valacyclovir 1000 mg three time a day for 7 days. Check an Amylase and Lipase due to the abdominal pain. Advised to consider smoking cessation. Follow up 1 month or sooner if needed. Review of Systems Constitutional: negative. ENT: sore throat, but as noted in HPI. Cardiovascular: negative. Respiratory: negative. Gastrointestinal: negative. Genitourinary: negative. Musculoskeletal: generalized muscle aches, but as noted in HPI. Integumentary and Breasts: skin lesion, blister and right upper lip., but as noted in HPI. Neurological: negative. Psychiatric: negative. Active Problems 1. Abdominal pain, RUQ (789.01) (R10.11) 2. Adenopathy, cervical (785.6) (R59.0) 3. Asthmatic bronchitis (493.90) (J45.909) 4. Chest pain (786.50) (R07.9) 5. Dysphagia (787.20) (R13.10) 6. Elevated glucose (790.29) (R73.09) 7. Fatigue (780.79) (R53.83) 8. Head Lice 9. Intertrigo (695.89) (L30.4) 10. Leucocytosis (288.60) (D72.829) 11. Neck pain (723.1) (M54.2) 12. SOB (shortness of breath) (786.05) (R06.02) 13. Sore throat (462) (J02.9) 14. Strep pharyngitis (034.0) (J02.0) Past Medical History ?? History of Acute [...] - currently Current Meds Medication Name Instruction No Reported Medications Allergies 1. OxyCONTIN TB12 Vitals Signs [Data Includes: Current Encounter] Temperature: 98.4 F Heart Rate: 77 Respiration: 16 Systolic: 118 Diastolic: 78 Weight: 207 lb BMI Calculated: 33.41 BSA Calculated: 2.03 O2 Saturation: 97 Physical Exam Constitutional General appearance: No acute distress, well appearing and well nourished. Eyes Conjunctiva and lids: No swelling, erythema or discharge. Pupils and irises: Equal, round and reactive to light. Ears, Nose, Mouth, and Throat External inspection of ears and nose: Normal. Otoscopic examination: Tympanic membranes translucent with normal light reflex. Canals patent without erythema. Oropharynx: Normal with no erythema, edema, exudate or lesions. Pulmonary Respiratory effort: No increased work of breathing or signs of respiratory distress. Auscultation of lungs: Clear to auscultation. Neck Neck: Supple, symmetric, trachea midline, no masses. Thyroid: Normal, no thyromegaly. Cardiovascular Auscultation of heart: Normal rate and rhythm, normal S1 and S2, without murmurs. Examination of extremities for edema and/or varicosities: Normal. Abdomen Abdomen: Non-tender, no masses. Liver and spleen: No hepatomegaly or splenomegaly. Skin Examination of the skin for lesions: Abnormal. There is a 1 cm area of erythema that is at the right side of the upper lip. Therefore 5. Small vesicles within this patch of erythema. Neurologic Cranial nerves: Cranial nerves 2-12 intact. Reflexes: 2+ and symmetric. Sensation: No sensory loss. Assessment 1. Herpes zoster (053.9) (B02.9) ?? right face/upper lip 2. Abdominal pain (789.00) (R10.9) Plan Abdominal pain ?? Amylase; Status:Resulted - Requires Verification; Done: [id number] 04:05PM ?? In Office Venipuncture; Status:Complete; Done: [id number] ?? Lipase; Status:Resulted - Requires Verification; Done: [id number] 04:05PM ?? Follow-up visit in 1 month Evaluation and Treatment Follow-up Status: Complete Done: [id number] Herpes zoster ?? Start: HCl - 1 GM Oral Tablet; TAKE 1 TABLET 3 times daily Discussion/Summary Rx for Valacyclovir 1000 mg 3 times a day for 7 days. Check Amylase and lipase. report result by letter. Follow up 1 month or sooner if needed. End of Encounter Meds Medication Name Instruction ValACYclovir HCl - 1 GM Oral Tablet TAKE 1 TABLET 3 times daily Patient Care Team Care Senior Linux Systems Administrator Role Specialty Office Number SUSHIL FRY Family Medicine Future Appointments Date/Time Provider Specialty Site 08/01/2015 02:45 PM Sushil Fry M.D. Family Medicine [facility] Scribed for Sushil Fry, by Elyssa Birch. 07/02/2015 3:37 PM ISushil, personally performed the services described in this documentation, as scribed by Elyssa Birch in my presence, and it is both accurate and complete. Signatures Electronically signed by : Elyssa Birch, ; Jul 02 2015 3:58PM EST (Co-author) Electronically signed by : Sushil Fry M.D.; Jul 06 2015 5:10PM EST (Author) documented in this encounter Miscellaneous Notes * Letter - Interface, See Report - 07/02/2015 2:45 PM EST December, has been under my care and was unable to attend work from 07.02.15 to 07.03.15. December return to work on 07.03.15 with the following restrictions: No restrictions or limitations. If you have any questions or concerns please call my office at the above number. : Sushil Fry MD * Letter - Interface, See Report - 07/02/2015 2:45 PM EST December, has been under my care and was unable to attend work from 07/02/2015 to 07/02/2015. December return to work on 07/03/2015 with the following restrictions: If you have any questions or concerns please call my office at the above number. : DR. FRY documented in this encounter Plan of Treatment Not on file documented as of this encounter Visit Diagnoses Not on filedocumented in this encounter Care Teams Senior Linux Systems Administrator Relationship Specialty Start Date End Date Sushil Fry MD PCP - General 03/06/15 10/28/15 documented as of this encounter
--- OUTSIDE RECORDS SUMMARY | 2024-06-30 22:09 | XMS_ITS | Encounter Summary ---
[facility] Address [address] [place] [address] Care Team Providers Care Mine Inspector Name Role Phone Provider, No Known Primary Care Provider [phone] Encounter Details Date Type Department Care Team (Late st Contact Info) Description 10/29/2015 11:07 AM EDT - 10/29/2015 11:59 PM EDT Hospital Encounter [address] STATION [address] [place] [phone] Rohith Baker MD [address] [facility] [address] [place] [address] Discharge Disposition: Home or Self Care Social [...] Procedure Name Priority Date/Time Associated Diagnosis Comments HEMOGLOBIN AND HEMATOCRIT, BLOOD Routine 10/29/2015 11:19 AM EDT TSH Routine 10/29/2015 11:19 AM EDT FOLLICLE STIMULATING HORMONE Routine 10/29/2015 11:19 AM EDT documented in this encounter Results * TSH (10/29/2015 11:19 AM EDT) TSH 0.839 0.350 - 5.350 UIU/mL [facility] Comment: Specimens containing fluorescein can produce falsely depressed values with this assay. ??Patients undergoing fluorescein dye angiography should wait 72 hours post-treatment before testing. Blood specimen (specimen) 10/29/2015 11:19 AM EDT 10/29/2015 11:19 AM EDT [facility] - 10/29/2015 11:58 AM EDT Specimen Type : Blood Rohith Baker MD LAB BLOOD ORDERABLES Final Result Performing Organization Address [facility] [[email or web address]] Co de Phone Number [facility]
[address] [place] [address], * Follicle stimulating hormone (10/29/2015 11:19 AM EDT) FSH 38.9 mIU/mL [facility] Comment: Males (13-70 yrs): ??1.4-18.1 mIU/mL Adult Female: ?Follicular Phase ?2.5-10.2 mIU/mL ?Midcycle Peak ? 3.4-33.4 mIU/mL ?Luteal Phase ?1.5-9.1 mIU/mL ? Less than 0.3 mIU/mL ?Postmenopausal ?23.0-116.3 mIU/mL Blood specimen (specimen) 10/29/2015 11:19 AM EDT 10/29/2015 11:19 AM EDT [facility] - 10/29/2015 11:57 AM EDT Specimen Type : Blood Rohith Baker MD LAB BLOOD ORDERABLES Final Result Performing Organization Address City/[facility]/ZIP Co de Phone Number [facility]
[address] [place] [address], * Hemoglobin and hematocrit, blood (10/29/2015 11:19 AM EDT) Hemoglobin 13.5 11.5 - 15.5 g/dL [facility] Hematocrit 39.9 34.5 - 44.0 % [facility] Blood specimen (specimen) 10/29/2015 11:19 AM EDT 10/29/2015 11:19 AM EDT Narrative [facility] - 10/29/2015 11:37 AM EDT Specimen Type : Blood us Rohith Baker MD LAB BLOOD ORDERABLES Final Result [facility]
[address] [place] [address], documented in this encounter Visit Diagnoses Not on filedocumented in this encounter Care Teams Mine Inspector Relationship Specialty Start Date End Date Provider, No Known [place], [place] [id number] PCP - General 10/29/15 11/05/15 documented as of this encounter
--- OUTSIDE RECORDS SUMMARY | 2024-06-30 22:09 | XMS_ITS | Encounter Summary ---
[facility] Address [address] [place] [address] Care Team Providers Care Nougat Cutter Machine Name Role Phone Provider, No Known Primary Care Provider [phone] Encounter Details Date Type Department Care Team (Late st Contact Info) Description 11/06/2015 2:27 PM EDT - 11/06/2015 11:59 PM EDT Hospital Encounter [address] [place] [phone] Rohith Baker MD [address] [facility] [address] [place] [address] Discharge Disposition: Home or Self Care Social [...] on filedocumented in this encounter Care Teams Nougat Cutter Machine Relationship Specialty Start Date End Date Provider, [place] [address] PCP - General 11/06/15 11/02/16 documented as of this encounter
--- OUTSIDE RECORDS SUMMARY | 2024-06-30 22:09 | XMS_ITS | Encounter Summary ---
[facility] Address [address] [place] [address] Care Team Providers Care Agricultural Produce Packer Name Role Phone Sushil Fry MD Primary Care Provider [phone] Encounter Details Date Type Department Care Team (Late st Contact Info) Description 06/23/2015 Documentation Converted [facility] HISTORICAL CONV [address] [place] [phone] Social History Tobacco Use Types Packs/Day Years Used Date Smoking Tobacco: Never Assessed Comments Unknown Sex and Gender Information Value Date Recorded Sex Assigned at Not on file Legal Sex Female 11:20 AM EDT Gender Identity Not on file Sexual Orientation Not on file documented as of this encounter Progress Notes * Sushil Fry MD - 06/23/2015 5:10 PM EST Verified Results In Office Rapid Strep 06Jun2015 03:14PM Sushil Fry Test Name Result Flag Reference Rapid Strep Result Positive A documented in this encounter Plan of Treatment Not on file documented as of this encounter Visit Diagnoses Not on filedocumented in this encounter Care Teams Agricultural Produce Packer Relationship Specialty Start Date End Date Sushil Fry MD PCP - General 03/06/15 10/28/15 documented as of this encounter
--- OUTSIDE RECORDS SUMMARY | 2024-06-30 22:09 | XMS_ITS | Encounter Summary ---
[facility] [address] [place] [address] Care Team Providers Care Charter And Tour Bus Driver Name Role Phone Sushil Fry MD Primary Care Provider [phone] Encounter Details Date Type Department Care Team (Late st Contact Info) Description 05/23/2015 Documentation Converted [facility] [address] [place] [address] Social History Tobacco Use Types Packs/Day Years Used Date Smoking Tobacco: Never Assessed Comments Unknown Sex and Gender Information Value Date Recorded Sex Assigned at Not on file Legal Sex Female 11:20 AM EDT Gender Identity Not on file Sexual Orientation Not on file documented as of this encounter Progress Notes * Sushil Fry MD - 05/23/2015 4:49 PM EDT Verified Results CBC With Auto Diff [id number] 02:34PM Sushil Fry Test Name Result Flag Reference Abs Baso 0.03 K/mcL 0.00-0.20 WBC 13.66 K/mcL H 3.50-10.80 Hemoglobin 13.2 g/dL 11.5-15.5 RBC 4.53 M/mcL 3.89-5.14 Hematocrit 40.3 % 34.5-44.0 MCV 89.0 fL 80.0-99.0 MCH 29.1 pg 27.0-31.0 MCHC 32.8 g/dL 32.0-36.0 Platelet 228 K/mcL 150-450 Neutrophils 57.7 % 41.0-71.0 Lymphocytes 34.8 % 24.0-44.0 Monocytes 5.9 % 0.0-12.0 Eosinophils 1.2 % 0.0-3.0 Basophils 0.2 % 0.0-1.0 Abs Neutrophil 7.86 K/mcL 1.50-8.30 Abs Lymph 4.76 K/mcL 0.60-4.80 Abs [place] 0.81 K/mcL 0.00-1.00 Abs Eos 0.17 K/mcL 0.10-0.30 Immature Gran 0.2 % 0.0-0.6 RDWCV 12.7 % 11.3-14.5 Amylase [id number] 02:34PM Sushil Fry Test Name Result Flag Reference Amylase 49 Units/L 30-118 documented in this encounter Plan of Treatment Not on file documented as of this encounter Visit Diagnoses Not on filedocumented in this encounter Care Teams Charter And Tour Bus Driver Relationship Specialty Start Date End Date Sushil Fry MD PCP - General 03/06/15 10/28/15 documented as of this encounter
--- OUTSIDE RECORDS SUMMARY | 2024-06-30 22:10 | XMS_ITS | Encounter Summary ---
[facility] [address] [place] [address] Care Team Providers Care Earthmoving Plant Operator Name Role Phone Sushil Fry MD Primary Care Provider [phone] Encounter Details Date Type Department Care Team (Late st Contact Info) Description 01/05/2013 Office Visit Converted [facility] [address] [facility] [address] [place] [address] Kofi Butler MD [address] [facility] [address] [place] [address] Social History Tobacco Use Types Packs/Day Years Used Date Smoking Tobacco: Never Assessed Comments Unknown Sex and Gender Information Value Date Recorded Sex Assigned at Not on file Legal Sex Female 11:20 AM EDT Gender Identity Not on file Sexual Orientation Not on file documented as of this encounter Last Filed Vital Signs Vital Sign Reading Time Taken Comments Blood Pressure 130/80 01/05/2013 2:46 PM EDT Pulse 84 01/05/2013 2:46 PM EDT Temperature 36.7 ??C (98 ??F) 01/05/2013 2:46 PM EDT Respiratory Rate 16 01/05/2013 2:46 PM EDT Oxygen Saturation - - Inhaled Oxygen Concentration - - Weight 117 kg (258 lb 0.1 oz) 01/05/2013 2:46 PM EDT Height 167.6 cm (5' 6 ) 01/05/2013 2:46 PM EDT Body Mass Index 41.64 01/05/2013 2:46 PM EDT documented in this encounter Progress Notes * Kofi Butler MD - 01/05/2013 3:00 PM EDT Chief Complaint Back pain History of Present Illness HPI: Re-evaul on MRI back still hurts without help from medication. MRI L5-S1 disc with stenosis and foraminal narrowing both sides Right sciatica Review of Systems Constitutional: negative. ENT: negative. Cardiovascular: negative. Respiratory: negative. Gastrointestinal: negative. Genitourinary: negative. Musculoskeletal: negative. Integumentary: negative. Neurological: negative. Psychiatric: negative. Eyes: negative. Active Problems 1. Acute Sinusitis 461.9 2. Lower Back Pain 724.2 Past Medical History ?? History of Colonoscopy (Fiberoptic) ?? History of Obesity 278.00 ?? History of Reported Pap Smear Surgical History ?? History of Cholecystectomy Family History ?? Family history of Gastric Cancer V16.0 Social History ?? Former Smoker V15.82 ?? Marital History - Currently Current Meds 1. Gabapentin 100 MG Oral Capsule; TAKE 1 CAPSULE IN THE MORNING AND 2 CAPSULES IN THE EVENING; Therapy: 25Dec2012 to (Evaluate:[id number]) Requested for: 25Dec2012; Last Rx:25Dec2012 Allergies 1. OxyCONTIN TB12 Vitals Signs [Data Includes: Current Encounter] Temperature: 98 F, Heart Rate: 84, Respiration: 16, Systolic: 130, Diastolic: 80, BMI Calculated: 41.46, BSA Calculated: 2.23, Height: 5 ft 6 in, Weight: 258 lb Physical Exam Constitutional General appearance: No acute distress, well appearing and well nourished. Uncomfortable. Musculoskeletal Limping. Assessment 1. Lower Back Pain 724.2 Plan Lower Back Pain (724.2) ?? Hydrocodone-Acetaminophen 7.5-325 MG Oral Tablet; TAKE 1 TABLET EVERY 6 HOURS NEEDED; Therapy: 05Jan2013 to (Evaluate:[id number]); Last Rx:05Jan2013 Signatures Electronically signed by : Kofi Butler M.D.; Jan 05 2013 3:20PM (Author) documented in this encounter Plan of Treatment Not on file documented as of this encounter Visit Diagnoses Not on filedocumented in this encounter Care Teams Earthmoving Plant Operator Relationship Specialty Start Date End Date Sushil Fry MD PCP - General 03/06/15 10/28/15 documented as of this encounter
--- OUTSIDE RECORDS SUMMARY | 2024-06-30 22:10 | XMS_ITS | Encounter Summary ---
Author Organization Healthcare Address [address] [place] [address] Care Team Providers Care Motor Driver Name Role Phone Sierra Collado MD Primary Care Provider Encounter Details Date Type Department Care Team (Late st Contact Info) Description 05/24/2023 Telephone Obstetrics & Gynecology [address] [place] [address] Carolin Owens MD [address] [place] [address] Social History Tobacco Use Types Packs/Day Years Used Date Smoking Tobacco: Former Cigarettes Smokeless Tobacco: Never Alcohol Use Standard Drinks/Week Comments Yes 0 (1 standard drink = 0.6 oz pure alcohol) alcohol: occassionally drinks:socially PHQ-2 Answer Date Recorded Patient Health Questionnaire-2 Score 0 05/16/2023 PHQ-2A Answer Date Recorded Patient Health Questionnaire-2 Score 0 05/16/2023 Comments Unknown Sex and Gender Information Value Date Recorded Sex Assigned at Not on file Legal Sex Female 11:45 AM EDT Gender Identity Not on file Sexual Orientation Not on file documented as of this encounter Miscellaneous Notes * Telephone Encounter - Mustapha Guardado - 05/25/2023 1:26 PM EDT Messaged patient * Telephone Encounter - Carolin Dunn RN - 05/24/2023 3:17 PM EDT Left vm for return call * Telephone Encounter - Carolin Owens MD - 05/24/2023 2:41 PM EDT Her swabs were negative, I resulted them last week. She does not need antibiotics. documented in this encounter Plan of Treatment Not on file documented as of this encounter Visit Diagnoses Not on filedocumented in this encounter Additional Health Concerns Assessment Noted Time A fall risk assessment has been complete d for the patient 05/16/2023 8:49 AM EDT A Body Mass Index follow-up plan has been documented for the patient 05/18/2023 11:47 AM EDT documented as of this encounter Care Teams Motor Driver Relationship Specialty Start Date End Date Sierra Collado MD [address] [place] [address] PCP - General 05/16/23 documented as of this encounter
--- OUTSIDE RECORDS SUMMARY | 2024-06-30 22:10 | XMS_ITS | Clinical Summary ---
Author Organization [facility] Address [address] [place] [address] Care Team Providers Care First Line Supervisor Name Role Phone Sierra Collado MD Primary Care Provider Allergies Active Allergy Reactions Criticality Noted Date Comments Oxycodone Anaphylaxis High 06/04/2016 Medications estradiol (Vagifem) 10 MCG tablet vaginal tabletIndicatio ns:Dyspareunia in female,Vaginal atrophy Insert 1 tablet (10 mcg) into the vagina every night. Insert 1 tablet into vagina at bedtime for 2 weeks, then at bedtime twice a week. 18 tablet 3 05/24/2023 Active Active Problems Problem Noted Date Diagnosed Date Smear, vaginal, as part of r outine gynecological examination 05/18/2023 Assessment & Plan (05/18/2023 11:42 AM EDT): - pap today - mammogram and colonoscopy up to date Discharge from the vagina 05/18/2023 Assessment & Plan (05/18/2023 11:42 AM EDT): Culture performed Dyspareunia in female 05/16/2023 Assessment & Plan (05/18/2023 11:44 AM EDT): - Vaginal samples collected using swabs. -Patient informed that results will be available in a couple of weeks and the office will call with the results when available. -discussed potential causes including vaginal atrophy, pelvic floor dysfunction, prolapse -Discussed potential treatment options including estrogen tablets, pelvic floor physical therapy. - vaginal estrogen Rx sent - PFPT referral sent Vaginal prolapse 05/16/2023 Assessment & Plan (05/18/2023 11:46 AM EDT): -anterior and apical prolpase -Discussed potential treatment options including pelvic floor physical therapy, pessary (may be best to wait until after use of vaginal estrogen), and potentially surgery. -I think that she would be a good candidate for a pessary, but with pain on exam (likely due to vaginal atrophy and pelvic floor dysfunction) I do not think she could tolerate fitting and insertion. Will plan on vaginal estrogen and PFPT x 3 months. If symptoms improved consider pessary fitting. Vaginal atrophy 05/16/2023 Assessment & Plan (05/18/2023 11:46 AM EDT): -Discussed potential treatment options including estrogen tablets - Rx sent Family History Medical History Relation Name Comments Heart Problem Father Diabetes Maternal Grandfather Diabetes Maternal Grandmother Breast cancer Other Great Grand[place] her Diabetes Paternal Grandfather Diabetes Paternal Grandmother Relation Name Status Comments Father Maternal Grandfather Maternal Grandmother Other Paternal Grandfather Paternal Grandmother Social History Tobacco Use Types Packs/Day Years Used Date Smoking Tobacco: Former Cigarettes Smokeless Tobacco: Never Tobacco Cessation:Counseling Given: Not Answered Alcohol Use Standard Drinks/Week Comments Yes 0 [...] Sign Reading Time Taken Comments Blood Pressure 149/88 05/16/2023 8:35 AM EDT Pulse 65 05/16/2023 8:35 AM EDT Temperature 36.4 ??C (97.6 ??F) 05/16/2023 8:35 AM ED T Respiratory Rate - - Oxygen Saturation 100% 05/16/2023 8:35 AM EDT Inhaled Oxygen Concentration - - Weight 90 kg (198 lb 6.6 oz) 05/16/2023 8:35 AM EDT Height 172.7 cm (5' 8 ) 05/16/2023 8:35 AM EDT Body Mass Index 30.17 05/16/2023 8:35 AM EDT Plan of Treatment Health Maintenance Due Date Last Done Comments [facility]-HIV Screening 1970 [facility]-Hepatitis C Screening 1970 [facility]-/Child/Adol SDOH Screenings 1970 [facility]- SDOH Screenings 01/18/1990 [facility]-Adult SDOH Screenings 01/18/1990 [facility]-Hepatitis B Vaccines (1 of 3 - 19+ 3-dose series) 01/18/1991 CT Colonography 01/18/2017 Colonoscopy 01/18/2017 FIT-DNA 01/18/2017 FIT 01/18/2017 FOBT 01/18/2017 Sigmoidoscopy 01/18/2017 [facility]-Colorectal Cancer Screening 01/18/2017 [facility]-Breast Cancer Screening 01/18/2022 [facility]-Zoster Vaccines (1 of 2) 01/18/2022 [id number]-[id number]-26 Vaccine (2 - season) 2024 04/08/2021 [facility]-Influenza Vaccine (#1) 03/25/202405/06, 05/13/2018, 07/16/2017 [facility]-Depression Screening 05/16/2024 05/16/2023 [facility]-Cervical Cancer Screening 05/16/2026 [facility]-HPV/Cotest 05/16/2026 05/16/2023 [facility]-Pap Smear 05/16/2026 05/16/2023 [facility]-DTaP,Tdap,and Td Vaccine s (4 - Td or Tdap) 05/06/2030 05/06/2020, 01/26/2019, 12/26/2008 [facility]-RSV Vaccine: 60+ Years o r (1 - 1-dose 75+ series) 01/18/2047 [facility]-Hepatitis A Vaccines Aged Out 019, 07/17/2018 No longer eligible based on patient's age to complete this topic [facility]-Obesity Intervention Completed 05/16/2023 [facility]-HIB Vaccines Aged Out No longer e ligible based on patient's age to complete this topic [facility]-HPV Vaccines Aged Out No longer e ligible based on patient's age to complete this topic [facility]-IPV Vaccines Aged Out No longer e ligible based on patient's age to complete this topic [facility]-Pneumococcal Vaccine: Pediatrics (0 to 5 Years) and At-Risk Patients (6 to 64 Years) Aged Out No longer eligible b ased on patient's age to complete this topic [facility]-Rotavirus Vaccines Aged Out No lo nger eligible based on patient's age to complete this topic Procedures Procedure Name Priority Date/Time Associated Diagnosis Comments PAP TEST - CYTOLOGY Routine 05/16/2023 9:36 AM EDT Smear, vaginal, as part of routine gynecological examination from Last 3 Months or Most Recently Relevant to Health Maintenance Results * (ABNORMAL) Pap Test (05/16/2023 9:36 AM EDT) Case Report Cytology ?Case: [id number] ? Authorizing Provider: ??Carolin Owens MD ??Collected: ? 05/16/2023 0936 ? Ordering Location: ? Obstetrics & Gynecology Received: ?05/17/2023 1048 ? First Screen: ?Fern Smith ? Pathologist: ? Lawanda Little MD ? Specimen: ?ThinPrep Pap Test, Liquid-Based Cervical/Vaginal ? 05/24/2023 5:05 PM EDT [facility] Interpretation ATYPICAL SQUAMOUS CELLS OF UNDETERMINED SIGNIFICANCE (ASCUS)(A) 05/24/2023 5:05 PM EDT [facility] Other Findings Atrophy and inflammation (Atrophic Vaginitis) 05/24/2023 5:05 PM EDT [facility] Specimen Adequacy Satisfactory for evaluation; transformation zone component cannot be definitely identified due to the presence of atrophy or other hormonal changes. Slide imaged by the ThinPrep Imaging system and selected 22 reynolds reviewed then full manual screening. 05/24/2023 5:05 PM EDT [facility] Cervical cytology is a screening test primarily for squamous cancers and precursors and has associated false negative and positive results. New technologies such as liquid based sampling may decrease but will not eliminate all false negative results. Regular screening and follow-up of unexplained clinical signs and symptoms are recommended to minimize false negative results. Please see the ASCCP website (www.asccp.org)f or followup recommendations. If HPV testing was requested, correlation with the results is suggested (please call Microbiology at [phone] for results). 05/24/2023 5:05 PM EDT [facility] Menstrual Status Not Applicable 04/26 5:05 PM EDT [facility] History of Hysterectomy Not Applicable 05/24/2023 5:05 PM EDT [facility] Contraceptive History Not Applicable 05/24/2023 5:05 PM EDT [facility] Screening Type Routine Screen 2022 5:05 PM EDT [facility] High Risk? Yes 05/24/2023 5:05 PM EDT [facility] HPV Testing Requested? Request HPV Testing Regardless of Pap Test Findings 05/24/2023 5:05 PM EDT [facility] Previous Cancer History No 05/24/2023 5:05 PM EDT [facility] Clinical Information Z01.419, Z12.72 - Smear, vaginal, as part of routine gynecological examination [ICD-10-CM] 05/24/2023 5:05 PM EDT [facility] Swab Vaginal and cervical cytologic material / Unknown Non-blood Collection / Unknown 05/16/2023 9:36 AM EDT 05/17/2023 10:48 AM EDT us Carolin Owens MD LAB CYTOLOGY ORDERABLES Final Result [facility] [address] [place] [address] from Last 3 Months or Most Recently Relevant to Health Maintenance Insurance [employer] Care Teams First Line Supervisor Relationship Specialty Start Date End Date Sierra Collado MD [address] [place] [address] PCP - General 05/16/23
--- OUTSIDE RECORDS SUMMARY | 2024-06-30 22:10 | XMS_ITS | Encounter Summary ---
[facility] [address] [place] [address] Care Team Providers Care Bridal Sales Consultant Name Role Phone Sushil Fry MD Primary Care Provider [phone] Encounter Details Date Type Department Care Team (Latest Contact Info) Description 03/17/2015 6:42 PM EDT - 03/17/2015 11:59 PM EDT Hospital Encounter [facility] [address] [place] [address] Sushil Fry MD [address] [place], [place] [address] Discharge Disposition: Home or Self Care Social [...] on filedocumented in this encounter Care Teams Bridal Sales Consultant Relationship Specialty Start Date End Date Sushil Fry MD PCP - General 03/06/15 10/28/15 documented as of this encounter
--- OUTSIDE RECORDS SUMMARY | 2024-06-30 22:10 | XMS_ITS | Encounter Summary ---
[facility] [address] [place] [address] Care Team Providers Care Strip Mill Operator Name Role Phone Sushil Fry MD Primary Care Provider [phone] Encounter Details Date Type Department Care Team (Latest Contact Info) Description 04/11/2015 7:53 AM EDT - 04/11/2015 11:59 PM EDT Hospital Encounter [facility] [address] [place] [address] Sushil Fry MD [address] [place] [address] Discharge Disposition: Home or Self Care Social [...] Procedure Name Priority Date/Time Associated Diagnosis Comments CONVERTED (HISTORICAL) CARDIOVASCULAR STUDIES Routine 04/14/2015 8:34 PM EDT SCANNED - CARDIOLOGY 04/11/2015 documented in this encounter Results * Cardiovascular Studies - Converted (04/14/2015 8:34 PM EDT) Anatomical Region Laterality Modality Other 04/14/2015 8:34 PM EDT Narrative 04/17/2015 9:13 AM EDT [address] ??[id number] GRADED EXERCISE TEST PATIENT NAME: ?December VISIT NUMBER: ?[id number] DATE OF PROCEDURE: ??04/11/2015 : ??1970 ?ROOM: ? AGE: ??45Y ?SEX: F ORDERING PHYSICIAN: ??Sushil Fry MD PRIMARY CARE PHYSICIAN: ??Sushil Fry MD READING PHYSICIAN: ??Refugio Carter MD TYPE OF STUDY: ??Graded exercise test. HISTORY: ??a 45 year old female with chest pain, fatigue and shortness of breath. ??BMI 30.5. INDICATION: ??Chest pain. PROCEDURE: ??The patient exercised on a treadmill for a total of ??11 ?? minutes 6 ?? seconds, reaching Stage ??4 ??of the Chidi protocol and achieving an estimated workload of ?? 13.40 ?? METs. ?? LORRAINE ??was -22. Reason for termination: ??Fatigue. Target heart rate of 150. ??Baseline heart rate was 64 ?? beats per minute and increased to ??160 ?? beats per minute at peak exercise representing ??90% of age predicted maximal heart rate. Blood pressure response was normal. Resting blood pressure ?? 120/84 ?? mmHg. ??Peak blood pressure ??170/80 ??mmHg. ?? The patient did not have chest pain/symptoms during the procedure. ?? No ST or T wave segment changes. At peak exercise and recovery there were no diagnostic changes seen. IMPRESSION: Normal exercise stress test. Refugio Carter MD* AM/rxdrs DD: ??04/11/2015 17:56:47 DT: ??04/14/2015 20:30:26 Voice Rec ID #[id number] Original Voice Rec ID #[id number] Doc ID #[id number] Rev. #0 cc: ?? Refugio Carter MD* Sushil Fry MD* [address] ??[id number] GRADED EXERCISE TEST PATIENT NAME: ?December VISIT NUMBER: ?[id number] DO NOT TEXT EDIT THIS LINE :[id number]: Authenticated by REFUGIO CARTER M.D. On 04/17/2015 09:13:13 AM Procedure Note Interface, See Report - 05/18/2015 [place] [address] GRADED EXERCISE TEST PATIENT NAME: [facility] VISIT NUMBER: [id number] DATE OF PROCEDURE: 04/11/2015 : 1970 ROOM: AGE: 45Y SEX: F ORDERING PHYSICIAN: Sushil Fry MD PRIMARY CARE PHYSICIAN: Sushil Fry MD READING PHYSICIAN: Refugio Carter MD TYPE OF STUDY: Graded exercise test. HISTORY: a 45 year old female with chest pain, fatigue and shortness of breath. BMI 30.5. INDICATION: Chest pain. PROCEDURE: The patient exercised on a treadmill for a total of 11minutes 6 seconds, reaching Stage 4 of the Chidi protocol and achieving an estimated workload of 13.40 METs. LORRAINE was -22. Reason for termination: Fatigue. Target heart rate of 150. Baseline heart rate was 64 beats per minuteand increased to 160 beats per minute at peak exercise representing 90% ofage predicted maximal heart rate. Blood pressure response was normal. Resting blood pressure 120/84 mmHg. Peak blood pressure 170/80mmHg. The patient did not have chest pain/symptoms during the procedure. No ST or T wave segment changes. At peak exercise and recovery there wereno diagnostic changes seen. IMPRESSION: Normal exercise stress test. Refugio Carter MD* AM/rxdrs Voice Rec ID #[id number] Original Voice Rec ID #[id number] Doc ID #[id number] Rev. #0 cc: Refugio Carter MD* Sushil Fry MD* [place] [address] GRADED EXERCISE TEST PATIENT NAME: [facility] VISIT NUMBER: [id number] DO NOT TEXT EDIT THIS LINE :[id number]: Authenticated by REFUGIO CARTER M.D. On 04/17/2015 09:13:13 AM us See Report Interface [facility] ORDERAB LES Final Result * SCANNED - CARDIOLOGY (04/11/2015) Anatomical Region Laterality Modality Other us [employer] [facility] CARDIAC SERVICES ORDERABLE S Final Result documented in this encounter Visit Diagnoses Not on filedocumented in this encounter Care Teams Strip Mill Operator Relationship Specialty Start Date End Date Sushil Fry MD PCP - General 03/06/15 10/28/15 documented as of this encounter
--- OUTSIDE RECORDS SUMMARY | 2024-06-30 22:10 | XMS_ITS | Encounter Summary ---
[facility] Address [address] [place] [address] Care Team Providers Care Physician Underwriter Name Role Phone Sushil Fry MD Primary Care Provider [phone] Encounter Details Date Type Department Care Team (Late st Contact Info) Description 07/08/2014 Office Visit Converted [facility] [address] [address] Sushil Fry MD [address] [place] [address] Social History Tobacco Use Types Packs/Day Years Used Date Smoking Tobacco: Never Assessed Comments Unknown Sex and Gender Information Value Date Recorded Sex Assigned at Not on file Legal Sex Female 11:20 AM EDT Gender Identity Not on file Sexual Orientation Not on file documented as of this encounter Last Filed Vital Signs Vital Sign Reading Time Taken Comments Blood Pressure 122/76 07/08/2014 3:31 PM EST Pulse - - Temperature 36.7 ??C (98.1 ??F) 07/08/2014 3:31 PM ES T Respiratory Rate 12 07/08/2014 3:31 PM EST Oxygen Saturation - - Inhaled Oxygen Concentration - - Weight 100 kg (221 lb 0.2 oz) 07/08/2014 3:31 PM EST Height 167.6 cm (5' 6 ) 07/08/2014 3:31 PM EST Body Mass Index 35.67 07/08/2014 3:31 PM EST documented in this encounter Progress Notes * Sushil Fry MD - 07/08/2014 3:00 PM EST Chief Complaint Ear pain, ST, [place] x 2 weeks. History of Present Illness HPI: as above Review of Systems Constitutional: negative. ENT: sore throat, earache and headache, but as noted in HPI. Cardiovascular: negative. Respiratory: negative. Gastrointestinal: negative. Genitourinary: negative. Musculoskeletal: negative. Integumentary and Breasts: negative. Neurological: negative. Psychiatric: negative. Active Problems 1. Elevated glucose (790.29) 2. Intertrigo (695.89) Past Medical History ?? History of Acute sinusitis (461.9) ?? History of Colonoscopy (Fiberoptic) ?? History of obesity (V13.89) ?? History of Lower back pain (724.2) ?? History of Reported Pap Smear ?? History of Yeast vaginitis (112.1) Surgical History ?? History of Cholecystectomy Family History ?? Family history of diabetes mellitus (V18.0) ?? Family history of Gastric Cancer (V16.0) Social History ?? Former smoker (V15.82) ?? Marital History - Currently Allergies 1. OxyCONTIN TB12 Vitals Signs [Data Includes: Current Encounter] Temperature: 98.1 F, OralRespiration: 12Respiration Quality: NormalSystolic: 122, LUE, SittingDiastolic: 76, LUE, SittingHeight: 5 ft 6 inWeight: 221 lb BMI Calculated: 35.67BSA Calculated: 2.09 Physical Exam Constitutional General appearance: No acute distress, well appearing and well nourished. Ears, Nose, Mouth, and Throat Otoscopic examination: Tympanic membranes translucent with normal light reflex. Canals patent without erythema. Oropharynx: Abnormal. Red throat. Pulmonary Auscultation of lungs: Clear to auscultation. Cardiovascular Auscultation of heart: Normal rate and rhythm, normal S1 and S2, without murmurs. Assessment 1. URI (upper respiratory infection) (465.9) Plan URI (upper respiratory infection) ?? Start: 500 MG Oral Capsule; TAKE 1 CAPSULE TWICE DAILY UNTIL GONE Discussion/Summary Amoxicillin for 10 days and Mucinex D. End of Encounter Meds Medication Name Instruction Amoxicillin 500 MG Oral Capsule TAKE 1 CAPSULE TWICE DAILY UNTIL GONE. Scribed for Sushil Fry, by Elyssa Birch. 07/08/2014 3:54 PM Sushil Victor, personally performed the services described in this documentation, as scribed by Elyssa Birch in my presence, and it is both accurate and complete. Signatures Electronically signed by : Elyssa Birch, ; Jul 08 2014 3:56PM EST (Co-author) Electronically signed by : Sushil Fry M.D.; Jul 08 2014 8:44PM EST (Author) documented in this encounter Plan of Treatment Not on file documented as of this encounter Visit Diagnoses Not on filedocumented in this encounter Care Teams Physician Underwriter Relationship Specialty Start Date End Date Sushil Fry MD PCP - General 03/06/15 10/28/15 documented as of this encounter
--- OUTSIDE RECORDS SUMMARY | 2024-06-30 22:10 | XMS_ITS | Encounter Summary ---
[facility] [address] [place] [address] Care Team Providers Care Geophysics Teacher Name Role Phone Sushil Fry MD Primary Care Provider [phone] Encounter Details Date Type Department Care Team (Late st Contact Info) Description 03/03/2015 Office Visit Converted [facility] [address] [address] Sushil Fry MD [address] [place] [address] Social History Tobacco Use Types Packs/Day Years Used Date Smoking Tobacco: Never Assessed Comments Unknown Sex and Gender Information Value Date Recorded Sex Assigned at Not on file Legal Sex Female 11:20 AM EDT Gender Identity Not on file Sexual Orientation Not on file documented as of this encounter Last Filed Vital Signs Vital Sign Reading Time Taken Comments Blood Pressure 124/80 03/03/2015 1:20 PM EDT Pulse 68 03/03/2015 1:20 PM EDT Temperature 36.6 ??C (97.9 ??F) 03/03/2015 1:20 PM ED T Respiratory Rate 12 03/03/2015 1:20 PM EDT Oxygen Saturation 98% 03/03/2015 1:20 PM EDT Inhaled Oxygen Concentration - - Weight 87.7 kg (193 lb 6.2 oz) 03/03/2015 1:20 P M EDT Height 167.6 cm (5' 6 ) 03/03/2015 1:20 PM EDT Body Mass Index 31.21 03/03/2015 1:20 PM EDT documented in this encounter Progress Notes * Sushil Fry MD - 03/03/2015 2:15 PM EDT Chief Complaint Chest congestion, SOA, dizzy x 1 week History of Present Illness HPI: The patient is had chest congestion, shortness of breath and dizziness over the last week. Some discomfort in her neck as well as her back up. She has difficulty moving about quickly. Her cough is productive. She did do a 5K run last Tuesday and had some shortness of breath. He is an exit is not helped. It is hard to breathe when she was wheezing at night. Worse in the morning as well as atnight. Review of Systems Constitutional: negative. ENT: as noted in HPI. Cardiovascular: negative. Respiratory: shortness of breath, wheezing, productive cough, colored sputum and green and chest congestion, but as noted in HPI. Gastrointestinal: negative. Genitourinary: negative. Musculoskeletal: negative. Integumentary and Breasts: negative. Neurological: dizziness, but as noted in HPI. Psychiatric: negative. Active Problems 1. Elevated glucose (790.29) 2. Intertrigo (695.89) Past Medical History ?? History of Acute sinusitis (461.9) ?? History of Colonoscopy (Fiberoptic) ?? History of obesity (V13.89) ?? History of upper respiratory infection (V12.09) ?? History of Lower back pain (724.2) [...] Signs [Data Includes: Current Encounter] Temperature: 97.9 FHeart Rate: 68Respiration: 12Systolic: 124Diastolic: 80Height: 5 ft 6 inWeight: 193 lb 6 ozBMI Calculated: 31.21BSA Calculated: 1.97O2 Saturation: 98 Physical Exam Constitutional General appearance: No acute [...] signs of respiratory distress. Auscultation of lungs: Abnormal. Bilateral expiratory wheezing and rhonchi. No fever. Assessment 1. Asthmatic bronchitis (493.90) Plan Asthmatic bronchitis ?? Start: Clavulanate 875-125 MG Oral Tablet; TAKE 1 TABLET EVERY 12 HOURS DAILY ?? Start: Ellipta 100-25 MCG/INH Inhalation Aerosol Powder Breath Activated; INHALE 1 PUFFS Twice daily ?? Follow Up if Not Better Evaluation and Treatment Follow-up Status: Complete Done: 03Mar2015 Drink plenty fluids. Discussion/Summary Plenty of fluids. Use Mucinex 6. Her milligrams twice a day. Use Augmentin 875 mg twice day for 7 days and use a Brio inhaler one inhalation twice a day, which I gave her to use over the next 2 weeks. End of Encounter Meds Medication Name Instruction Amoxicillin-Pot Clavulanate 875-125 MG Oral Tablet TAKE 1 TABLET EVERY 12 HOURS DAILY. Breo Ellipta 100-25 MCG/INH Inhalation Aerosol Powder Breath Activated INHALE 1 PUFFS Twice daily Scribed for Sushil Fry, by Elyssa Birch. 03/03/2015 2:28 PM I, Sushil Fry, personally performed the services described in this documentation, as scribed by Elyssa Birch in my presence, and it is both accurate and complete. Signatures Electronically signed by : Elyssa Birch, ; Mar 03 2015 2:31PM EST (Co-author) Electronically signed by : Sushil Fry M.D.; Mar 09 2015 4:39PM EST (Author) documented in this encounter Miscellaneous Notes * Letter - Sushil Fry MD - 03/03/2015 2:15 PM EDT December, has been under my care and was unable to attend work from 03/03/15 to 03/03/15. December return to work on 03/04/15 with the following restrictions: No restrictions or limitations. If you have any questions or concerns please call my office at the above number. : Sushil Fry documented in this encounter Plan of Treatment Not on file documented as of this encounter Visit Diagnoses Not on filedocumented in this encounter Care Teams Geophysics Teacher Relationship Specialty Start Date End Date Sushil Fry MD PCP - General 03/06/15 10/28/15 documented as of this encounter
--- OUTSIDE RECORDS SUMMARY | 2024-06-30 22:10 | XMS_ITS | Encounter Summary ---
[facility] Address [address] [place] [address] Care Team Providers Care Indian Nanny Name Role Phone Sushil Fry MD Primary Care Provider [phone] Encounter Details Date Type Department Care Team (Late st Contact Info) Description 09/05/2013 Office Visit Converted [facility] [address] [facility] [address] [place] [address] Merrill Damon, EVELINA, BUSINESS ASSISTANT [address] [place] [address] Social History Tobacco Use Types Packs/Day Years Used Date Smoking Tobacco: Never Assessed Comments Unknown Sex and Gender Information Value Date Recorded Sex Assigned at Not on file Legal Sex Female 11:20 AM EDT Gender Identity Not on file Sexual Orientation Not on file documented as of this encounter Last Filed Vital Signs Vital Sign Reading Time Taken Comments Blood Pressure 160/88 09/05/2013 2:41 PM EST Pulse 84 09/05/2013 2:41 PM EST Temperature 36.5 ??C (97.7 ??F) 09/05/2013 2:41 PM ES T Respiratory Rate 12 09/05/2013 2:41 PM EST Oxygen Saturation - - Inhaled Oxygen Concentration - - Weight 113 kg (248 lb 13 oz) 09/05/2013 2:41 PM EST Height - - Body Mass Index 40.16 01/05/2013 2:46 PM EDT documented in this encounter Progress Notes * Merrill Damon, RADHA - 09/05/2013 2:30 PM EST Chief Complaint white vaginal discharge History of Present Illness HPI: She is complaining of thick, white vaginal discharge and pruritic rash in groin for one week. When she exercises and sweats she gets a yeast infection. She is requesting a cream. Review of Systems Constitutional: negative. ENT: negative. Cardiovascular: negative. Respiratory: negative. Gastrointestinal: negative. Genitourinary: negative. Musculoskeletal: negative. Integumentary and Breasts: a rash. Neurological: negative. Psychiatric: negative. Active Problems 1. Acute sinusitis (461.9) ?? Assessed By: Kofi Butler ([facility]); Last Assessed: 25 Dec 2012 2. Lower back pain (724.2) ?? Assessed By: Kofi Butler ([facility]); Last Assessed: 05 Jan 2013 Past Medical History ?? History of Colonoscopy (Fiberoptic) ?? Resolved Date: 03 Oct 2007 ?? History of obesity (V13.89) ?? History of Reported Pap Smear ?? Resolved Date: 27 Oct 2005 Surgical History ?? History of Cholecystectomy Family History ?? Family history of diabetes mellitus (V18.0) ?? Assessed By: Merrill Damon ([facility]); Last Assessed: 05 Sep 2013 ?? Family history of Gastric Cancer (V16.0) Social History ?? Former smoker (V15.82) ?? Marital History - Currently Allergies 1. OxyCONTIN TB12 Vitals Signs [Data Includes: Current Encounter] Temperature: 97.7 F, OralHeart Rate: 84Respiration: 12Systolic: 160Diastolic: 88Weight: 248 lb 12.8ozBMI Calculated: 40.16BSA Calculated: 2.19 Physical Exam Constitutional General appearance: No acute distress, well appearing and well nourished. Eyes Conjunctiva and lids: No swelling, erythema or discharge. Ears, Nose, Mouth, and Throat External inspection of ears and nose: Normal. Pulmonary Respiratory effort: No increased work of breathing or signs of respiratory distress. Auscultation of lungs: Clear to auscultation. Neck Neck: Supple, symmetric, trachea midline, no masses. Cardiovascular Auscultation of heart: Normal rate and rhythm, normal S1 and S2, without murmurs. Musculoskeletal Gait and station: Normal. Skin Skin and subcutaneous tissue: Abnormal. Bright red rash under pannus and in groin folds. Psychiatric Orientation to person, place, and time: Normal. Mood and affect: Normal. Assessment 1. Family history of diabetes mellitus (V18.0) : Grandparent ?? Assessed By: Merrill Damon ([facility]); Last Assessed: 05 Sep 2013 2. Yeast vaginitis (112.1) ?? Assessed By: Merrill Damon ([facility]); Last Assessed: 05 Sep 2013 3. Intertrigo (695.89) ?? Assessed By: Merrill Damon ([facility]); Last Assessed: 05 Sep 2013 4. Elevated glucose (790.29) ?? Assessed By: Merrill Damon ([facility]); Last Assessed: 05 Sep 2013 Plan Yeast vaginitis ?? Start: Fluconazole 150 MG Oral Tablet; TAKE 1 TABLET DAILY ?? Start: Nystatin 126426 UNIT/GM External Cream; APPLY 2-3 TIMES DAILY TO AFFECTED AREA(S) End of Encounter Meds Medication Name Instruction Fluconazole 150 MG Oral Tablet TAKE 1 TABLET DAILY. Nystatin 116152 UNIT/GM External Cream APPLY 2-3 TIMES DAILY TO AFFECTED AREA(S). Discussion/Summary Patient's Hgb A1c was 6.6. She became very defensive when I discussed the results and implications of the results. I mentioned she was at increased risk since she had GDM with both of her pregnancies. I want her to come back for fasting labs but she refuses at this time. she knows the risks of uncontrolled DM. She is exercising which is in her favor. Future Appointments Date/Time Provider Specialty Site 10/18/2013 11:20 AM Milad Doherty M.D. [facility] Signatures Electronically signed by : Merrill Damon APRN; Sep 05 2013 3:30PM EST (Author) documented in this encounter Plan of Treatment Not on file documented as of this encounter Visit Diagnoses Not on filedocumented in this encounter Care Teams Indian Nanny Relationship Specialty Start Date End Date Sushil Fry MD PCP - General 03/06/15 10/28/15 documented as of this encounter
--- OUTSIDE RECORDS SUMMARY | 2024-06-30 22:10 | XMS_ITS | Encounter Summary ---
[facility] Address [address] [place] [address] Care Team Providers Care Coremaker Apprentice Name Role Phone Sushil Fry MD Primary Care Provider Encounter Details Date Type Department Care Team (Late st Contact Info) Description 03/17/2015 Office Visit Converted [facility] [address] [address] Sushil Fry MD [address] [place] [address] Social History Tobacco Use Types Packs/Day Years Used Date Smoking Tobacco: Never Assessed Comments Unknown Sex and Gender Information Value Date Recorded Sex Assigned at Not on file Legal Sex Female 11:20 AM EDT Gender Identity Not on file Sexual Orientation Not on file documented as of this encounter Last Filed Vital Signs Vital Sign Reading Time Taken Comments Blood Pressure 116/68 03/17/2015 11:13 AM EDT Pulse 64 03/17/2015 11:13 AM EDT Temperature 36.8 ??C (98.2 ??F) 03/17/2015 11:13 AM E DT Respiratory Rate - - Oxygen Saturation 100% 03/17/2015 12:00 PM EDT Inhaled Oxygen Concentration - - Weight 90 kg (198 lb 8 oz) 03/17/2015 11:13 AM E DT Height 167.6 cm (5' 6 ) 03/17/2015 11:13 AM EDT Body Mass Index 32.04 03/17/2015 11:13 AM EDT documented in this encounter Progress Notes * Sushil Fry MD - 03/17/2015 10:45 AM EDT Chief Complaint unable to swallow or eat without a pain in chest and back x 2 days. Stiff neck, arms pain and tingling, fatigue but cant sleep. History of Present Illness HPI: Patient has been experiencing pain in the center of the back and also in the center of her chest with swallowing over the last 2 or 3 days. She denies any trauma. She at times is had difficulty catching her breath because of the discomfort. On one occasion. She said she nearly passed out. She has felt dizzy at times. She has used Tums without relief. The preceding cough that she has has resolved. She is feels very weak and is unable to run a she normally does. She is had no swelling in herlegs. She did run on each day, Tuesday through Tuesday of the past week but did experience fatigue quickly. She also has had some tightness and stiffness of her neck and arm with some tingling. She is quite fatigued, but is unable to sleep. Review of Systems Constitutional: fatigue, but as noted in HPI. ENT: pain in esophagus with eating, but as noted in HPI. Cardiovascular: negative. Respiratory: shortness of breath, but as noted in HPI. Gastrointestinal: as noted in HPI and no vomiting. Genitourinary: negative. Musculoskeletal: stiff neck, but as noted in HPI. Integumentary and Breasts: negative. Neurological: tingling, but as noted in HPI The patient presents with complaints of dizziness, described as lightheadedness and faintness. Psychiatric: negative. Active Problems 1. Asthmatic bronchitis (493.90) (J45.909) 2. Elevated glucose (790.29) (R73.09) 3. Intertrigo (695.89) (L30.4) Past Medical History ?? History of Acute sinusitis (461.9) (J01.90) ?? History of Colonoscopy (Fiberoptic) ?? History of obesity (V13.89) (Z87.898) ?? History of upper respiratory infection (V12.09) [...] Breath Activated INHALE 1 PUFFS Twice daily Allergies 1. OxyCONTIN TB12 Vitals Signs [Data Includes: Current Encounter] O2 Saturation: 100, RA Temperature: 98.2 F Heart Rate: 64 Systolic: 116 Diastolic: 68 Height: 5 ft 6 in Weight: 198 lb 8 oz BMI Calculated: 32.04 BSA Calculated: 1.99 Physical Exam Constitutional General appearance: No acute distress, well appearing and well nourished. female who is alert. She does not appear to be short of breath. Her O2 saturation on room air is 100%. Blood pressures 116/68, heart rate is 64 and regular. She is afebrile. Eyes Conjunctiva and lids: No swelling, erythema [...] Liver and spleen: No hepatomegaly or splenomegaly. Musculoskeletal Gait and station: Normal. Digits and nails: Normal without clubbing or cyanosis. Inspection/palpation of joints, bones, and muscles: Normal. Procedure Results ECG Results and Interpretation:. The 12-lead ECG is normal. Rhythm and rate:. Normal sinus rhythm. P-waves:. The P wave is normal. QRS: the QRS is normal ST segment: The ST segments are normal. Normal Comparison to prior ECGs: No interval change. Assessment 1. SOB (shortness of breath) (786.05) (R06.02) 2. Dysphagia (787.20) (R13.10) 3. Fatigue (780.79) (R53.83) 4. Chest pain (786.50) (R07.9) Plan Chest pain, Dysphagia, Fatigue, SOB (shortness of breath) ?? CBC With Auto Diff; Status:Resulted - Requires Verification; Done: [id number] 12:23PM ?? CMP; Status:Resulted - Requires Verification; Done: 17Mar2015 12:23PM ?? Follow-up visit in 1 week Evaluation and Treatment Follow-up Status: Complete Done: 17Mar2015 Chest pain, Fatigue, SOB (shortness of breath) ?? STRESS TEST TREADMILL - 11800; Status:Active; Requested for:[id number] 08:00AM; ?? XR CHEST PA AND LATERAL - 21127; Status:Active; Requested for:17Mar2015; Chest pain, SOB (shortness of breath) ?? EKG w / interpret and report - 18264; Status:Complete; Done: 17Mar2015 Dysphagia ?? Start: 20 MG Oral Capsule Delayed Release; TAKE 1 CAPSULE Daily ?? H Pylori Breath; Status:Resulted - Requires Verification; Done: 17Mar2015 12:23PM Dysphagia, Fatigue ?? EGD w/Biopsy - 80072; Status:Active; Requested for:17Mar2015; Discussion/Summary We will check for several studies. Regarding her dysphagia and also the chest pain and shortness ofbreath. Check a urea breath test as well as a CBC and metabolic panel. Check an EGD. Check a chest x-ray. Check a stress test. Use omeprazole 20 mg a day. Given a prescription for 30. Return to see us in one or 2 weeks. End of Encounter Meds Medication Name Instruction Breo Ellipta 100-25 MCG/INH Inhalation Aerosol Powder Breath Activated INHALE 1 PUFFS Twice daily Omeprazole 20 MG Oral Capsule Delayed Release TAKE 1 CAPSULE Daily Future Appointments Date/Time Provider Specialty Site 03/24/2015 01:00 PM Sushil Fry M.D. Family Medicine [facility] Scribed for Sushil Fry, by Elyssa Birch. 03/17/2015 11:39 AM I, Sushil Fry, personally performed the services described in this documentation, as scribed by Elyssa Birch in my presence, and it is both accurate and complete. Signatures Electronically signed by : Elyssa Birch, ; Mar 17 2015 12:08PM EST (Co-author) Electronically signed by : Sushil Fry M.D.; Mar 21 2015 8:49PM EST (Author) documented in this encounter Plan of Treatment Not on file documented as of this encounter Visit Diagnoses Not on filedocumented in this encounter Care Teams Coremaker Apprentice Relationship Specialty Start Date End Date Sushil Fry MD PCP - General 03/06/15 10/28/15 documented as of this encounter
--- OUTSIDE RECORDS SUMMARY | 2024-06-30 22:10 | XMS_ITS | Encounter Summary ---
Author Organization Healthcare Address [address] [id number] Care Team Providers Care Visual Presentation Manager Name Role Phone Sierra Collado MD Primary Care Provider [phone] Encounter Details Date Type Department Care Team (Late st Contact Info) Description 05/24/2023 Telephone Obstetrics & Gynecology [address] [place] [address] Carolin Owens MD [address] [place] [address] Social History Tobacco Use Types [...] encounter Miscellaneous Notes * Telephone Encounter - Mina Landa, PharmD - 05/24/2023 12:25 PM EDT Resent prescription(s) to [facility] pharmacy due to: Prescription(s) not received by pharmacy. Medication(s): estradiol Additional Info: Will resend because original Rx was not received at pharmacy. documented in this encounter Plan of Treatment Not on file documented as of this encounter Visit Diagnoses Diagnosis Dyspareunia in female Vaginal atrophy Postmenopausal atrophic vaginitis documented in this encounter Additional Health Concerns Assessment Noted Time A fall risk assessment has been complete d for the patient 05/16/2023 8:49 AM EDT A Body Mass Index follow-up plan has been documented for the patient 05/18/2023 11:47 AM EDT documented as of this encounter Care Teams Visual Presentation Manager Relationship Specialty Start Date End Date Sierra Collado MD [facility] [place] [address] PCP - General 05/16/23 documented as of this encounter
--- OUTSIDE RECORDS SUMMARY | 2024-06-30 22:10 | XMS_ITS | Encounter Summary ---
[facility] Address [address] [place] [address] Care Team Providers Care Reed Or Wind Instrument Repairer Name Role Phone Unavailable Primary Care Provider Unavailabl e Encounter Details Date Type Department Care Team (Late st Contact Info) Description 10/18/2013 12:43 PM EDT - 10/18/2013 11:59 PM EDT Hospital Encounter [facility] DEPARTMENT [address] [id number] Milad Doherty MD [address] [place] [address] Social History Tobacco Use Types Packs/Day Years [...] Name Priority Date/Time Associated Diagnosis Comments XR SPINE LUMBAR FLEX AND EXT Routine 10/18/2013 12:51 PM EDT documented in this encounter Results * X-RAY LUMBAR SPINE FLEXION AND EXTENSION (10/18/2013 12:51 PM EDT) Anatomical Region Laterality Modality Spine, L-spine N/A Radiographic Brenda ging 10/18/2013 12:5 1 PM EDT Narrative 10/18/2013 3:10 PM EDT STANDING LATERAL FLEXION AND EXTENSION VIEWS OF THE LUMBAR SPINE - 10/18/2013: HISTORY: Severe back pain, followup discectomy. FINDINGS: ?? 1. There is reduction of L5-S1 disc space. There is no lumbar fracture. 2. Flexion and extension views reveal limited range of motion of the lumbar spine. There is no evidence of laxity, subluxation, or instability otherwise. Destructive lesion, fracture, or acute lumbar abnormality is therefore not identified. D: ??10/18/2013 E: ??10/18/2013 ? Suri WHITLEY ? Reading Mario DESHPANDE ? Releasing Mario DESHPANDE ? Released Date Time- 10/18/131641 Procedure Note Tomas Ratliff MD - 04/16/2015 STANDING LATERAL FLEXION AND EXTENSION VIEWS OF THE LUMBAR SPINE - 10/18/2013: HISTORY: Severe back pain, followup discectomy. FINDINGS: 1. There is reduction of L5-S1 disc space. There is no lumbar fracture. 2. Flexion and extension views reveal limited range of motion of the lumbar spine. There is no evidence of laxity, subluxation, or instability otherwise. Destructive lesion, fracture, or acute lumbar abnormality is therefore not identified. E: 10/18/2013 Otr Owner Operator Truck DriverMichael DESHPANDE Releasing Mario DESHPANDE Released Date Time- 10/18/131641 Milad Doherty MD [facility] [place] OR[place] ERABLES Final Result documented in this encounter Visit Diagnoses Not on filedocumented in this encounter
--- OUTSIDE RECORDS SUMMARY | 2024-06-30 22:10 | XMS_ITS | Encounter Summary ---
[facility] [address] [place] [address] Care Team Providers Care Evp Name Role Phone Sushil Fry MD Primary Care Provider [phone] Encounter Details Date Type Department Care Team (Late st Contact Info) Description 06/25/2009 Conversion Encounter [facility] HISTORICAL CONV [address] [place] [address] Interface, See Report Social History Tobacco Use Types Packs/Day Years [...] Priority Date/Time Associated Diagnosis Comments CONVERTED (HISTORICAL) SURGICAL PATHOLOGY Routine 06/25/2009 2:41 PM EST documented in this encounter Results * Converted Surgical Pathology (06/25/2009 2:41 PM EST) 06/25/2009 2:41 PM EST [facility] LABORATORY - 06/26/2009 2:49 PM EST [facility] SURGICAL PATHOLOGY REPORT Patient Name: VENESSA YANG MR#: [id number] : 1970 Gender: F Ordering Physician: DERIAN MARTE Copy To: [facility] [place] Location: [facility] ([facility]) Collected: 06/25/2009 Received: 06/25/2009 Reported: 06/26/2009 Clinical Diagnosis and History The working history is scalp mass and right groin pigmented lesion. Final Diagnosis 1. SOFT TISSUE SUBMITTED SCALP MASS: ? Calcified pilar cyst. 2. RIGHT GROIN PIGMENTED SKIN LESION: ? Seborrheic keratosis. ? DGD/rw Amendments: Electronically Signed Out By BLAZE NIETO Specimen(s) Received: 1: Skin, biopsy 2: Skin, biopsy Gross Description Specimen 1 received in formalin labeled scalp mass is a 1.5 x 1.5 x 1.0 cm garcia/pink wrinkled soft tissue. ??Sectioning reveals a cystic space filled with garcia/alex grumous material. ??The specimen is submitted entirely in cassette 1. ?? Specimen 2 received in formalin labeled right groin pigmented lesion is a 0.9 x 0.5 cm garcia/brown wrinkled skin excised to a depth of 0.3 cm. ??There is a short suture designating the superior margin and a long suture designating the lateral margin. ??The margins are inked as follows: ??superior margin black, inferior margin blue and the specimen is sectioned from the lateral toward the medial aspect and submitted in its entirety. ??Summary of sections: ??A ??lateral margin; B ??entire transected body; C ??medial margin. ??HBM/sk Microscopic Description Sections of the scalp mass show a cystic structure lined by epithelium lacking a granular layer. ??The keratinocytes are pale and show no atypia. ??Central zones of desquamated keratin are undergoing calcification. Sections of the groin lesion show a partially elevated zone of acanthotic benign squamous epithelium in which pseudohorn cyst are identified. ??Parts of the small fibrovascular network within the keratosis show hemosiderin deposition accounting for the pigmentation. ??There is no evidence of melanocytic atypia at the dermal epidermal junction or evidence of nevocellular proliferation. Focally there is mild chronic inflammation in the dermis. ??DGD/rw Procedures/Addenda us See Report Interface PATHOLOGY/CYTOLOGY ORDERABL ES Final Result [facility] [address] [place] [address], documented in this encounter Visit Diagnoses Not on filedocumented in this encounter Care Teams Evp Relationship Specialty Start Date End Date Sushil Fry MD PCP - General 03/06/15 10/28/15 documented as of this encounter
--- OUTSIDE RECORDS SUMMARY | 2024-06-30 22:10 | XMS_ITS | Encounter Summary ---
Author Organization [facility] Address [address] [place] [address] Care Team Providers Care Grain Origination Specialist Name Role Phone Sierra Collado MD Primary Care Provider [phone] Encounter Details Date Type Department Care Team (Latest Contact Info) Description 05/16/2023 Travel Social History Tobacco Use Types Packs/Day Years [...] documented as of this encounter Care Teams Grain Origination Specialist Relationship Specialty Start Date End Date Sierra Collado MD [facility] [place] [address] PCP - General 05/16/23 documented as of this encounter
--- OUTSIDE RECORDS SUMMARY | 2024-06-30 22:10 | XMS_ITS | Encounter Summary ---
[facility] [address] [place] [address] Care Team Providers Care Employee Relations Manager Name Role Phone Sushil Fry MD Primary Care Provider [phone] Encounter Details Date Type Department Care Team (Latest Contact Info) Description 03/17/2015 12:58 PM EDT - 03/17/2015 11:59 PM EDT Hospital Encounter [facility] DEPARTMENT [address] [place] [address] Sushil Fry MD [address] [place] [address] Discharge Disposition: Home or Self Care [...] Name Priority Date/Time Associated Diagnosis Comments XR CHEST PA AND LATERAL Routine 03/17/2015 1:03 PM EDT H. PYLORI BREATH TEST Routine 03/17/2015 12:23 PM EDT CBC AND DIFFERENTIAL Routine 03/17/2015 12:23 PM EDT COMPREHENSIVE METABOLIC PANEL Routine 03/17/2015 12:23 PM EDT documented in this encounter Results * X-RAY CHEST PA AND LATERAL (03/17/2015 1:03 PM EDT) Anatomical Region Laterality Modality Body, Chest N/A Radiographic Brenda ging 03/17/2015 1:03 PM EDT Narrative 03/17/2015 3:02 PM EDT EXAMINATION: AX-CHEST PA AND LATERAL-03/17/2015: INDICATION: CHEST PAIN, SOB. COMPARISON: 2012. FINDINGS: The heart size is normal. There is no pneumothorax or effusion. The lungs are free of opacities. The osseous structures are grossly unremarkable. ? IMPRESSION- No acute chest pathology. D: ??03/17/2015 E: ??03/17/2015 ? Reading Mario CASTELLANO ? Releasing Mario CASTELLANO ? Released Date Time- 03/18/15744 ? Suri Baldwin Procedure Note Otis Eamnuel MD - 04/15/2015 EXAMINATION: AX-CHEST PA AND LATERAL-03/17/2015: INDICATION: CHEST PAIN, SOB. COMPARISON: 2012. FINDINGS: The heart size is normal. There is no pneumothorax or effusion. The lungs are free of opacities. The osseous structures are grossly unremarkable. IMPRESSION- No acute chest pathology. E: 03/17/2015 Reading Mario CASTELLANO Releasing Mario CASTELLANO Released Date Time- 03/18/15 0745 Suri Baldwin Sushil Fry MD IMG DIAGNOSTIC IMAGING ORDERA BLES Final Result * H. pylori breath test (03/17/2015 12:23 PM EDT) Pathologist [facility] H. pylori Breath Test Negative NEGATIVE [facility] Breath (substance) 03/17/2015 12:23 PM EDT Narrative [facility] - 03/20/2015 9:33 AM EDT Specimen Type: Breath PERFORMED AT: [facility] [id number] CHIEF PETROLEUM ENGINEER: Alfred Ruvalcaba MD ?? PHONE: [phone] Sushil Fry MD MICROBIOLOGY - GENERAL ORDERA BLES Final Result [facility] [address] [place] [address], * (ABNORMAL) Comprehensive metabolic panel (03/17/2015 12:23 PM EDT) Pathologist [facility] Glucose 93 70 - 100 mg/dL [facility] BUN 8(L) 9 - 23 mg/dL [facility] Creatinine 0.5(L) 0.6 - 1.3 mg/dL [facility] Sodium 143 132 - 146 mmol/L [facility] Potassium 4.5 3.5 - 5.5 mmol/L [facility] Chloride 107 99 - 109 mmol/L [facility] CO2 27 20 - 31 mmol/L [facility] Calcium 9.4 8.7 - 10.4 mg/dL [facility] Alkaline Phosphatase 79 25 - 100 Units/L [facility] AST (SGOT) 20 0 - 33 Units/L [facility] ALT (SGPT) 15 7 - 40 Units/L [facility] Total Bilirubin 0.7 0.3 - 1.2 mg/dL [facility] Total Protein 7.0 5.7 - 8.2 g/dL [facility] Albumin 4.6 3.2 - 4.8 g/dL [facility] eGFR 152 ml/min/1.7 32 [facility] Comment: DF by IF @ 03/17/2015 19:30 ?? National Kidney [employer] Guidelines ?Stage ? Description ?GFR ?1 ?Normal or High ? 90+ ?2 ?Mild decrease ? 60-89 ?3 ?Moderate decrease ?30-59 ?4 ?Severe decrease ?15-29 ?5 ?Kidney failure ?<15 Anion Gap 9 3 - 11 mmol/L [facility] Blood specimen (specimen) 03/17/2015 12:23 PM EDT Narrative [facility] - 03/17/2015 7:30 PM EDT Specimen Type: Blood us Sushil Fry MD LAB BLOOD ORDERABLES Final Re sult [facility] [address] [place] [address], * (ABNORMAL) CBC and Differential (03/17/2015 12:23 PM EDT) WBC 15.69(H) 3.50 - 10.80 [facility] LABORATORY RBC 4.54 3.89 - 5.14 /[facility] [place] [facility] Hemoglobin 13.5 11.5 - 15.5 g/dL [facility] Hematocrit 41.1 34.5 - 44.0 % [facility] MCV 90.5 80.0 - 99.0 fL [facility] MCH 29.7 27.0 - 31.0 pg [facility] MCHC 32.8 32.0 - 36.0 g/dL [facility] RDW-CV 13.3 11.3 - 14.5 % [facility] Platelets 212 150 - 450 K/[facility] Neutrophils Absolute 10.28(H) 1.50 - 8.30 [facility] Lymphocytes Absolute 4.40 0.60 - 4.80 [facility] Monocytes Absolute 0.84 0.00 - 1.00 [facility] Eosinophils Absolute 0.11 0.10 - 0.30 [facility] Basophils Absolute 0.02 0.00 - 0.20 [facility] Neutrophil Rel % 65.5 41.0 - 71.0 % [facility] Lymphocyte Rel % 28.0 24.0 - 44.0 % [facility] Monocyte Rel % 5.4 0.0 - 12.0 % [facility] Eosinophil Rel % 0.7 0.0 - 3.0 % [facility] Basophil Rel % 0.1 0.0 - 1.0 % [facility] Immature Granulocyte Rel % 0.3 0.0 - 0.6 % [facility] RBC Morphology Normal [facility] Platelet Morphology Normal [facility] Blood specimen (specimen) 03/17/2015 12:23 PM EDT Narrative [facility] - 03/17/2015 7:58 PM EDT Specimen Type: Blood us Sushil Fry MD LAB BLOOD ORDERABLES Final Re sult [facility] [address] [place] [address], [place] [phone] documented in this encounter Visit Diagnoses Not on filedocumented in this encounter Care Teams Employee Relations Manager Relationship Specialty Start Date End Date Sushil Fry MD PCP - General 03/06/15 10/28/15 documented as of this encounter
--- OUTSIDE RECORDS SUMMARY | 2024-06-30 22:10 | XMS_ITS | Encounter Summary ---
[facility] Address [address] [place] [address] Care Team Providers Care Environmental Services Aide Name Role Phone Sushil Fry MD Primary Care Provider [phone] Encounter Details Date Type Department Care Team (Late st Contact Info) Description 12/25/2012 Office Visit Converted [facility] [address] [facility] [address] [place] [address] Kofi Butler MD [address] [facility] [address] [place] [address] Social History Tobacco Use Types Packs/Day Years Used Date Smoking Tobacco: Never Assessed Comments Unknown Sex and Gender Information Value Date Recorded Sex Assigned at Not on file Legal Sex Female 11:20 AM EDT Gender Identity Not on file Sexual Orientation Not on file documented as of this encounter Last Filed Vital Signs Vital Sign Reading Time Taken Comments Blood Pressure 116/90 12/25/2012 10:28 AM EDT Pulse 80 12/25/2012 10:28 AM EDT Temperature 36.7 ??C (98.1 ??F) 12/25/2012 10:28 AM E DT Respiratory Rate 16 12/25/2012 10:28 AM EDT Oxygen Saturation - - Inhaled Oxygen Concentration - - Weight 117 kg (257 lb 0.2 oz) 12/25/2012 10:28 A M EDT Height 167.6 cm (5' 6 ) 12/25/2012 10:28 AM EDT Body Mass Index 41.48 12/25/2012 10:28 AM EDT documented in this encounter Progress Notes * Kofi Butler MD - 12/25/2012 10:20 AM EDT Chief Complaint Numbness History of Present Illness HPI: Right side of face, torso,back, all the way to feet is numb tingly feeling. Ears hurt. Just doesn't feel well. Started three days ago back discomfort right back and legs. Today right side face tingling. Vision good not dizzzy Remote back trouble helped by conservative management Review of Systems Constitutional: feeling poorly. ENT: negative. Cardiovascular: negative. Respiratory: negative. Gastrointestinal: negative. Genitourinary: negative. Musculoskeletal: negative. Integumentary: negative. Neurological: numbness and tingling. Psychiatric: negative. Eyes: negative. Current Meds 1. No Reported Medications Allergies 1. OxyCONTIN TB12 Vitals Signs [Data Includes: Current Encounter] Temperature: 98.1 F, Heart Rate: 80, Respiration: 16, Systolic: 116, Diastolic: 90, BMI Calculated:41.31, BSA Calculated: 2.23, Height: 5 ft 6 in, Weight: 257 lb Physical Exam Constitutional General appearance: No acute distress, well appearing and well nourished. Overweight. Eyes Pupils and irises: Equal, round and reactive to light. Ears, Nose, Mouth, and Throat Otoscopic examination: Abnormal. Fluid in right ear. Oropharynx: Abnormal. Upper air way drainage. Neck Neck: Supple, symmetric, trachea midline, no masses. Pulmonary Respiratory effort: No increased work of breathing or signs of respiratory distress. Musculoskeletal Mild tendetness mid back. Leg lift strongly positive for right pain with right sciatica. Left side negative. Arms overhead uncomfortable into lower back. Neurologic Reflexes: 2+ and symmetric. Assessment 1. Acute Sinusitis 461.9 2. Lower Back Pain 724.2 Plan Lower Back Pain (724.2) ?? Azithromycin 250 MG Oral Tablet; TAKE 2 TABLETS ON DAY 1 THEN TAKE 1 TABLET A DAY FOR 4 DAYS; Therapy: 25Dec2012 to (Last Rx:25Dec2012) ?? Gabapentin 100 MG Oral Capsule; TAKE 1 CAPSULE IN THE MORNING AND 2 CAPSULES IN THE EVENING; Therapy: 25Dec2012 to (Evaluate:[id number]); Last Rx:25Dec2012 Discussion/Summary mri of lumbar spine Signatures Electronically signed by : Kofi Butler M.D.; Dec 25 2012 11:24AM (Author) documented in this encounter Miscellaneous Notes * Letter - Interface, See Report - 12/25/2012 10:20 AM EDT MILENA YANG, has been under my care and was unable to attend work from 12/25 to [12/25 ]. MILENA may return to work on 12/26 with the following restrictions: No restrictions or limitations. If you have any questions or concerns please call my office at the above number. Provider : JACI BUTLER documented in this encounter Plan of Treatment Not on file documented as of this encounter Visit Diagnoses Not on filedocumented in this encounter Care Teams Environmental Services Aide Relationship Specialty Start Date End Date Sushil Fry MD PCP - General 03/06/15 10/28/15 documented as of this encounter
--- OUTSIDE RECORDS SUMMARY | 2024-06-30 22:10 | XMS_ITS | Encounter Summary ---
[facility] Organization [facility] Address [address] [place] [address] Care Team Providers Care Brass Cleaner Name Role Phone Sushil Fry MD Primary Care Provider [phone] Encounter Details Date Type Department Care Team (Late st Contact Info) Description 03/24/2015 Office Visit Converted [facility] [address] [id number] Sushil Fry MD [address] [place] [address] Social History Tobacco Use Types Packs/Day Years Used Date Smoking Tobacco: Never Assessed Comments Unknown Sex and Gender Information Value Date Recorded Sex Assigned at Not on file Legal Sex Female 11:20 AM EDT Gender Identity Not on file Sexual Orientation Not on file documented as of this encounter Last Filed Vital Signs Vital Sign Reading Time Taken Comments Blood Pressure 118/68 03/24/2015 12:56 PM EDT Pulse 78 03/24/2015 12:56 PM EDT Temperature 36.8 ??C (98.3 ??F) 03/24/2015 1 2:56 PM EDT Respiratory Rate - - Oxygen Saturation - - Inhaled Oxygen Concentration - - Weight 91.2 kg (200 lb 15.9 oz) 015 12:56 PM EDT Height 167.6 cm (5' 6 ) 03/24/2015 12:5 6 PM EDT Body Mass Index 32.44 03/24/2015 12:56 PM EDT documented in this encounter Progress Notes * Sushil Fry MD - 03/24/2015 1:00 PM EDT Verified Results CBC With Auto Diff 17Mar2015 12:23PM Ang Sushil Test Name Result Flag Reference Abs Baso 0.02 K/mcL 0.00-0.20 WBC 15.69 K/mcL H 3.50-10.80 Hemoglobin 13.5 g/dL 11.5-15.5 RBC 4.54 M/mcL 3.89-5.14 Hematocrit 41.1 % 34.5-44.0 MCV 90.5 fL 80.0-99.0 MCH 29.7 pg 27.0-31.0 MCHC 32.8 g/dL 32.0-36.0 Platelet 212 K/mcL 150-450 Neutrophils 65.5 % 41.0-71.0 Lymphocytes 28.0 % 24.0-44.0 Monocytes 5.4 % 0.0-12.0 Eosinophils 0.7 % 0.0-3.0 Basophils 0.1 % 0.0-1.0 Abs Neutrophil 10.28 K/mcL H 1.50-8.30 Abs Lymph 4.40 K/mcL 0.60-4.80 Abs Delta 0.84 K/mcL 0.00-1.00 Abs Eos 0.11 K/mcL 0.10-0.30 Immature Gran 0.3 % 0.0-0.6 Plt Morphology Normal RBC Morphology Normal RDWCV 13.3 % 11.3-14.5 H Pylori Breath 17Mar2015 12:23PM Ang Sushil PERFORMED AT: [facility] [address] [id number] CHANNELING MACHINE RUNNER: Alfred Ruvalcaba MD PHONE: [phone] Test Name Result Flag Reference H. pylori Breath Test Negative Negative CMP 17Mar2015 12:23PM Sushil Fry Test Name Result Flag Reference Glucose 93 mg/dL 70-100 Creatinine 0.5 mg/dL L 0.6-1.3 BUN 8 mg/dL L 9-23 Sodium 143 mmol/L 132-146 Potassium 4.5 mmol/L 3.5-5.5 Chloride 107 mmol/L 99-109 Carbon Dioxide 27 mmol/L 20-31 Calcium 9.4 mg/dL 8.7-10.4 Total Protein 7.0 g/dL 5.7-8.2 Albumin 4.6 g/dL 3.2-4.8 Bilirubin,Total 0.7 mg/dL 0.3-1.2 Alkaline Phos 79 Units/L 25-100 AST 20 Units/L 0-33 ALT 15 Units/L 7-40 Anion Gap 9 mmol/L 3-11 Ext. MDRD GFR 152 ml/min/1.732 [employer] Guidelines Stage Description GFR 1 Normal or High 90+ 2 Mild decrease 60-89 3 Moderate decrease 30-59 4 Severe decrease 15-29 5 Kidney failure <15 * Sushil Fry MD - 03/24/2015 1:00 PM EDT Chief Complaint f/u History of Present Illness HPI: At last visit. We will check for several studies. Regarding her dysphagia and also the chest pain and shortness ofbreath. Check a urea breath test as well as a CBC and metabolic panel. Check an EGD. Check a chest x-ray. Check a stress test. Use omeprazole 20 mg a day. Given a prescription for 30. Return to see us in one or 2 weeks. December is here for follow-up on her fatigue neck pain and chest pain. She had a urea breath test thatwas negative. CBC revealed an elevated white count of 15,000. Metabolic panel was normal. Chest x-ray was normal as well. She tried omeprazole, but it causes nausea and she stopped taking it. She does still have some neck pain and chest pain. She says the pain between her scapula in her back is a throbbing pain. She is a tenderness of her neck and over trapezii. The discomfort in the upper mid chest is occurs with swallowing. Her graft. The patient is scheduled to undergo a EGD on April 11 and a stress test on April 11 as well. Review of Systems Constitutional: fatigue, but as noted in HPI. ENT: pain with swallowing, but as noted in HPI. Cardiovascular: negative. Respiratory: negative. Gastrointestinal: nausea, but as noted in HPI. Genitourinary: negative. Musculoskeletal: as noted in HPI The patient presents with complaints of bilateral upper back pain, described as throbbing. Integumentary and Breasts: negative. Neurological: negative. Psychiatric: negative. Active Problems 1. Asthmatic bronchitis (493.90) (J45.909) 2. Dysphagia (787.20) (R13.10) 3. Elevated glucose (790.29) (R73.09) 4. Fatigue (780.79) (R53.83) 5. Intertrigo (695.89) (L30.4) 6. SOB (shortness of breath) (786.05) (R06.02) Past Medical History ?? History of Acute sinusitis (461.9) (J01.90) ?? History of Colonoscopy (Fiberoptic) ?? History of chest pain (V13.89) (Z87.898) ?? History of obesity (V13.89) (Z87.898) ?? [...] Vitals Signs [Data Includes: Current Encounter] Temperature: 98.3 F Heart Rate: 78 Systolic: 118 Diastolic: 68 Height: 5 ft 6 in Weight: 201 lb BMI Calculated: 32.44 BSA Calculated: 2 Physical Exam Constitutional General appearance: No acute distress, well appearing and well nourished. Pressures 118/68. Eyes Conjunctiva and lids: No swelling, erythema [...] and spleen: No hepatomegaly or splenomegaly. Musculoskeletal Inspection/palpation of joints, bones, and muscles: Abnormal. There is a tenderness of the trapezius. In the area of the neck bilaterally. There is also some tenderness in the mid scapular region. Assessment 1. Fatigue (780.79) (R53.83) 2. Neck pain (723.1) (M54.2) 3. Chest pain (786.50) (R07.9) Plan Chest pain, Neck pain ?? Start: 15 MG Oral Tablet; TAKE 1 TABLET BY MOUTH DAILY ?? Start: HCl - 4 MG Oral Tablet; TAKE 1 TABLET TWICE DAILY Dysphagia ?? Start: HCl - 300 MG Oral Capsule; TAKE 1 CAPSULE DAILY Fatigue ?? Follow-up visit in 1 month Evaluation and Treatment Follow-up Status: Complete Done: [id number] Rest drink, plenty fluids and eat well. Discussion/Summary Check a EGD and stress test as above. For her symptoms. Use ranitidine 3 mg once a day, meloxicam 15 mg once a day, and ties editing 4 mg twice a day. Return to see me in 4 weeks. End of Encounter Meds Medication Name Instruction Breo Ellipta 100-25 MCG/INH Inhalation Aerosol Powder Breath Activated INHALE 1 PUFFS Twice daily Meloxicam 15 MG Oral Tablet TAKE 1 TABLET BY MOUTH DAILY Ranitidine HCl - 300 MG Oral Capsule TAKE 1 CAPSULE DAILY. TiZANidine HCl - 4 MG Oral Tablet TAKE 1 TABLET TWICE DAILY. Future Appointments Date/Time Provider Specialty Site 04/18/2015 01:30 PM Sushil Fry M.D. Family Medicine [facility] Scribed for Sushil Fry, by Elyssa Birch. 03/24/2015 1:36 PM ISushil, personally performed the services described in this documentation, as scribed by Elyssa Birch in my presence, and it is both accurate and complete. Signatures Electronically signed by : Elyssa Birch ; Mar 24 2015 1:37PM EST (Co-author) Electronically signed by : Sushil Fry M.D.; Mar 30 2015 8:34PM EST (Author) documented in this encounter Miscellaneous Notes * Letter - Sushil Fry MD - 03/24/2015 1:00 PM EDT December, has been under my care and was unable to attend work from 03/24/15 to 03/24/15. December return to work on 03/25/15 with the following restrictions: No restrictions or limitations. If you have any questions or concerns please call my office at the above number. : Sushil Fry documented in this encounter Plan of Treatment Not on file documented as of this encounter Visit Diagnoses Not on filedocumented in this encounter Care Teams Brass Cleaner Relationship Specialty Start Date End Date Sushil Fry MD PCP - General 03/06/15 10/28/15 documented as of this encounter
--- OUTSIDE RECORDS SUMMARY | 2024-06-30 22:10 | XMS_ITS | Encounter Summary ---
[facility] Address [address] [place] [address] Care Team Providers Care Maintenance Specialist Name Role Phone Sushil Fry MD Primary Care Provider [phone] Encounter Details Date Type Department Care Team (Late st Contact Info) Description 04/04/2013 Conversion [place] [facility] [place] [facility] [place] [address] [place] [address] Interface, See Report Social History [...] Diagnosis Comments CONVERTED (HISTORICAL) SURGICAL PATHOLOGY Routine 04/04/2013 6:11 AM EDT documented in this encounter Results * Converted Surgical Pathology (04/04/2013 6:11 AM EDT) 04/04/2013 6:11 AM EDT [facility] - 04/05/2013 11:04 [place] [address] SURGICAL PATHOLOGY REPORT Patient Name: VENESSA YANG MR#: [id number] : 1970 Gender: F Ordering Physician: SEVEN DIANA Copy To: ?? 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 Final Diagnosis DISC, DISCECTOMY L5-S1: ? Fragments of fibrohyaline cartilage and decalcified bone, no acute inflammation or metastatic disease identified. DGD/sk Amendments: Electronically Signed Out By BLAZE NIETO Specimen(s) Received: Intervertebral disc Gross Description Received in formalin labeled disc L5-S1 and consists of multiple tiny fragments of fibrocartilaginous tissue measuring 1 x 1 x 0.5 cm and submitted in toto in a single cassette. ??DGD/sk Microscopic Description See diagnosis. ??DGD/sk Procedures/Addenda us See Report Interface PATHOLOGY/CYTOLOGY ORDERABL [place] [address], documented in this encounter Visit Diagnoses Not on filedocumented in this encounter Care Teams Maintenance Specialist Relationship Specialty Start Date End Date Sushil Fry MD PCP - General 03/06/15 10/28/15 documented as of this encounter
--- OUTSIDE RECORDS SUMMARY | 2024-06-30 22:10 | XMS_ITS | Encounter Summary ---
[facility] Address [address] [place] [address] Care Team Providers Care Cloth Washer Back Tender Name Role Phone Sushil Fry MD Primary Care Provider [phone] Encounter Details Date Type Department Care Team (Late st Contact Info) Description 12/27/2008 Conversion [place] [facility] [place] [address] [place] [address] Interface, See Report Social History [...] Diagnosis Comments CONVERTED (HISTORICAL) SURGICAL PATHOLOGY Routine 12/27/2008 5:47 AM EDT documented in this encounter Results * Converted Surgical Pathology (12/27/2008 5:47 AM EDT) 12/27/2008 5:47 AM EDT [facility] - 12/31/2008 4:00 PM EDT [facility] SURGICAL PATHOLOGY REPORT Patient Name: VENESSA YANG MR#: [id number] : 1970 Gender: F Ordering Physician: GERRI MARTINO :1C Copy To: ?? Location: 2117-07 Collected: 12/27/2008 Received: 12/27/2008 Reported: 12/30/2008 Clinical Diagnosis and History The working history is repeat Caesarean section with bilateral tubal ligation; 39 1/7 weeks gestation; AMA; gestational diabetic, diet controlled. Final Diagnosis RIGHT AND LEFT FALLOPIAN TUBE SEGMENTS: ? Histologically unremarkable fallopian tubes. ??DGD/my Amendments: Electronically Signed Out By BLAZE NIETO Specimen(s) Received: Fallopian tube, sterlization Gross Description The specimen, labeled right and left fallopian tube segments, received in formalin, consists of two garcia pink portions of fallopian tubes undesignated as to laterality. ??Each tube is surfaced by garcia pink smooth glistening serosa and averages 1.5 cm in length x 0.8 cm in diameter. ??One of the tubes is inked and each shows a central lumen averaging 0.1 cm. ??No masses are appreciated. ??The specimen is submitted entirely in one cassette. ??HM/my Microscopic Description Sections of the tubes show patent lumina and no evidence of plical fusion or inflammation. ??DGD/my Procedures/Addenda us See Report Interface PATHOLOGY/CYTOLOGY ORDERABL ES Final Result [facility] [address] [place] [address], documented in this encounter Visit Diagnoses Not on filedocumented in this encounter Care Teams Cloth Washer Back Tender Relationship Specialty Start Date End Date Sushil Fry MD PCP - General 03/06/15 10/28/15 documented as of this encounter
--- OUTSIDE RECORDS SUMMARY | 2024-06-30 22:10 | XMS_ITS | Encounter Summary ---
Author Organization Healthcare Address [address] [place] [address] Care Team Providers Care Weigher And Crusher Name Role Phone Sierra Collado MD Primary Care Provider [phone] Reason for Referral * Consultation (Routine) - Authorized Specialty Diagnoses / Procedures Referred By Controbi baumann Referred To Contact Physical Therapy Diagnoses Dyspareunia in female Vaginal prolapse Carolin Owens MD [address] [place] [address] Phone: tel: fax: [facility] ([facility]) [address] [place] [phone] Phone: tel: Referral ID Status Reason Start Date Expiration Date Visits Requested Visits Authorized [id number] Authorized Consult and Treat 05/16/2023 11/14/2024 1 1 Scheduling Instructions Dyspaurenia, cystocele, apical prolapse Reason for Visit * Reason 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 Abnormal pap back in 2007. HPV positive. Mammogram done last year, reports normal. Last pap maybe 2-4 years ago-WNL. Also reports painful intercouse, reports bleeding afterwards. Encounter Details Date Type Department Care Team (Late st Contact Info) Description 05/16/2023 8:30 AM EDT Office Visit Obstetrics & Gynecology [address] [place] [address] Carolin Owens MD [address] [place] [id number] Smear, vaginal, as part of routine gynecological examination (Primary Dx); Discharge from the vagina; Dyspareunia in female; Vaginal atrophy; Vaginal prolapse; Encounter for screening mammogram for breast cancer Social History Tobacco Use Types Packs/Day Years [...] Mass Index 30.17 05/16/2023 8:35 AM EDT documented in this encounter Miscellaneous Notes * Assessment & Plan Note - Carolin Owens MD - 05/18/2023 11:42 AM EDT Associated Problem(s): Discharge from the vagina Culture performed * Assessment & Plan Note - Carolin Owens MD - 05/18/2023 11:42 AM EDT Associated Problem(s): Smear, vaginal, as part of routine gynecological examination - pap today - mammogram and colonoscopy up to date * Assessment & Plan Note - Renee Altman - 05/16/2023 5:01 PM EDTAssociated Problem(s): Vaginal atrophy -Discussed potential treatment options including estrogen tablets - Rx sent * Assessment & Plan Note - Renee Altman - 05/16/2023 4:59 PM EDTAssociated Problem(s): Vaginal prolapse -anterior and apical prolpase -Discussed potential treatment [...] months. If symptoms improved consider pessary fitting. * Assessment & Plan Note - Renee Altman - 05/16/2023 4:56 PM EDTAssociated Problem(s): Dyspareunia in female - Vaginal samples collected using swabs. -Patient informed that results will be available in a couple of weeks and the office will call withthe results when available. -discussed potential causes including vaginal atrophy, pelvic floor dysfunction, prolapse -Discussed potential treatment options including estrogen tablets, pelvic floor physical therapy. 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 Abnormal pap back in 2007. HPV positive. Mammogram done last year, reports normal. Last pap maybe 2-4 years ago-WNL. Also reports painful intercouse, reports bleeding afterwards. Venessa Dumont is a 53 y.o. here for a new gynecologic visit. Venessa presents for annual and with concern of vaginal pain during and after intercourse for the past5 years and spotting/ bleeding after intercourse. The pain is stabbing in nature and not specific to penetration and lubrication has not helped. In fact lubrication caused a burning pain. Venessa explains that it feels like there is something in her vagina all the time. Age at menarche: 14 Last menses: 2016 C/s x 2 Last pap 4 years ago - normal. H/o abnormal pap in 2007 - sounds like she had an excision procedure Normal mammogram 2021 Normal colonoscopy 3-4 years ago Past Medical History She has a past medical history of Back pain. Past Surgical History She has a past surgical history that includes Leg Surgery; Back surgery; Cyst Removal; oral surgery; section, classic; and LASIK. Social History She reports that she has quit smoking. Her smoking use included cigarettes. She has never used smokeless tobacco. She reports current alcohol use. She reports that she does not use drugs. Family History Her family history includes Breast cancer in an other family member; Diabetes in her maternal grandfather, maternal grandmother, paternal grandfather, and paternal grandmother; Heart Problem in her father. Current Medications She has a current medication list which includes the following prescription(s): estradiol. Allergies Allergies Allergen Reactions Oxycodone Anaphylaxis Review of Systems HENT: Negative for sore throat. Respiratory: Negative for shortness of breath. Gastrointestinal: Negative for constipation and diarrhea. Genitourinary: Negative for dysuria. Neurological: Negative for weakness, light-headedness, numbness and headaches. Objective Visit Vitals BP (!) 149/88 Pulse 65 Temp 36.4 ??C (97.6 ??F) Body mass index is 30.17 kg/m??. Physical Exam Constitutional: Appearance: Normal appearance. Genitourinary: Vulva exam comments: normal. Vaginal discharge and tenderness present. Anterior and apical vaginal prolapse present. Moderate vaginal atrophy present. Cervical friability present. HENT: Head: Normocephalic and atraumatic. Cardiovascular: Rate and Rhythm: Normal rate and regular rhythm. Pulmonary: Effort: Pulmonary effort is normal. No respiratory distress. Musculoskeletal: Right lower leg: No edema. Left lower leg: No edema. Neurological: General: No focal deficit present. Mental Status: She is alert. Psychiatric: Mood and Affect: Mood normal. Behavior: Behavior normal. Assessment/Plan Problem List Items Addressed This Visit Nervous Dyspareunia in female - Vaginal samples collected using swabs. -Patient informed that results will be available in a couple of weeks and the office will call withthe results when available. -discussed potential causes including vaginal atrophy, pelvic floor dysfunction, prolapse -Discussed potential treatment options including estrogen tablets, pelvic floor physical therapy. - vaginal estrogen Rx sent - PFPT referral sent Relevant Medications estradiol (Vagifem) 10 MCG tablet vaginal tablet Other Relevant Orders Ambulatory referral to Physical Therapy Genitourinary Vaginal prolapse -anterior and apical prolpase -Discussed potential treatment [...] months. If symptoms improved consider pessary fitting. Relevant Orders Ambulatory referral to Physical Therapy Vaginal atrophy -Discussed potential treatment options including estrogen tablets - Rx sent Relevant Medications estradiol (Vagifem) 10 MCG tablet vaginal tablet Discharge from the vagina Culture performed Other Smear, vaginal, as part of routine gynecological examination - Primary - pap today - mammogram and colonoscopy up to date Relevant Orders Pap Test Genital Culture and Gram Stain (Completed) Other Visit Diagnoses Encounter for screening mammogram for breast cancer Relevant Orders Mammography Breast Screening Tomosynthesis Bilateral Follow up in 3 months. Time Spent: I personally spent a total of 47 minutes on this encounter. This time includes face to face with patient, counseling and discussion and/or coordination of care. Cosigned by Carolin Owens MD at 05/18/2023 11:46 AM EDT Associated attestation - Carolin Owens MD - 05/18/2023 11:46 AM EDT I saw and evaluated the patient with the medical/HOME HEALTH TRAVEL OT/PA student. I discussed the case with the medical/HOME HEALTH TRAVEL OT/PA student and agree with the findings and plan as documented. I personally performed the Examand Medical Decision Making. documented in this encounter Plan of Treatment Scheduled Orders Name Type Priority Associated Diagnoses Orde r Schedule Mammography Breast Screening Tomosynthesis Bilateral Imaging Routine Encounter for screening mammogram for breast cancer Expected: 05/16/2023 (Approximate), Expires: 11/16/2024 Scheduled Referrals Name Type Priority Associated Diagnoses Order Schedule Ambulatory referral to Physical Therapy Outpatient Referral Routine Dyspareunia in female Vaginal prolapse Expected: 05/16/2023 (Approximate), Expires: 11/14/2024 documented as of this encounter Procedures Procedure Name Priority Date/Time Associated Diagnosis Comments GENITAL CULTURE AND GRAM STAIN Routine 05/16/2023 9:39 AM EDT Smear, vaginal, as part of routine gynecological examination HIGH RISK HUMAN PAPILLOMAVIRUS (HPV) PCR WITH GENOTYPING Routine 05/16/2023 9:36 AM EDT Smear, vaginal, as part of routine gynecological examination PAP TEST - CYTOLOGY Routine 05/16/2023 9 :36 AM EDT Smear, vaginal, as part of routine gynecological examination documented in this encounter Results * (ABNORMAL) Genital Culture and Gram Stain (05/16/2023 9:39 AM EDT) Culture Light Growth 05/18/2023 2:11 PM EDT [facility] Culture Mixed vaginal mauro(A) 05/18/2023 2:11 PM EDT [facility] Comment:The organism value f or this result has been updated. These results have been appended to the previously preliminary verified report. Gram Stain Result Moderate Polymorphonuclear leukocytes(A) 05/18/2023 2:11 PM EDT [facility] Gram Stain Result Few Gram positive cocci in pairs(A) 05/18/2023 2:11 PM EDT [facility] Swab Vaginal structure / Unknown Non-blood Collection / Unknown 05/16/2023 9:39 AM EDT 05/16/2023 12:50 PM EDT Carolin Owens MD LAB MICROBIOLOGY - [facility] AL ORDERABLES Final Result [facility] [address] [place] [address] * High Risk Human Papillomavirus (HPV) PCR with Genotyping (05/16/2023 9:36 AM EDT) Pathologist [facility] High Risk Human Papillomavirus (HPV) PCR Interpretation Not Detected Not Detected 05/26/2023 12:21 PM EDT [facility] High Risk Human Papillomavirus (HPV) PCR Genotype 16 Not Detected Not Detected 05/26/2023 12:21 PM EDT [facility] High Risk Human Papillomavirus (HPV) PCR Genotype 18 Result Not Detected Not Detected 05/26/2023 12:21 PM EDT [facility] (HPV) Other High Risk HPV Genotypes (Not 16 or 18) Not Detected Not Detected 05/26/2023 12:21 PM EDT [facility] Swab Cervix uteri structure / Unknown Non-blood Collection / Unknown 05/16/2023 9:36 AM EDT 05/25/2023 3:54 PM EDT Narrative [facility] - 05/26/2023 12:21 PM EDT This test is performed by the Andrew 4800 instrument Real Time PCR HPV DNA and genotype testing. This test is FDA approved for use with cervical and endocervical specimens. This test is used for clinical purposes. It should not be regarded as investigational or for research. The test specifically identifies HPV-16 and HPV-18 while concurrently detecting the rest of the high risk types (31, 33, 35, 39, 45, 51, 52, 56, 58, 59, 66 and 68). The [facility] is certified under the Clinical Laboratory Improvement Amendments of 1988 (CLIA-88) as qualified to perform high complexity clinical laboratory testing. us Carolin Ownes MD LAB MICROBIOLOGY - GENER AL ORDERABLES Final Result [facility] [address] [place] [address] * (ABNORMAL) Pap Test (05/16/2023 9:36 AM EDT) Case Report Cytology ?Case: [id number] ? Authorizing Provider: ??Carolin Owens MD ??Collected: ? 05/16/2023 0936 ? Ordering Location: ? Obstetrics & Gynecology Received: ?05/17/2023 1048 ? First Screen: ?Fern Smith ? Pathologist: ? Lawanda Little MD ? Specimen: ?ThinPrep Pap Test, Liquid-Based Cervical/Vaginal ? 05/24/2023 5:05 PM EDT [facility] Interpretation ATYPICAL SQUAMOUS CELLS OF UNDETERMINED SIGNIFICANCE (ASCUS)(A) 05/24/2023 5:05 PM EDT [facility] Other Findings Atrophy and inflammation (Atrophic Vaginitis) 05/24/2023 5:05 PM EDT [facility] Specimen Adequacy Satisfactory for evaluation; transformation zone component cannot be definitely identified due to the presence of atrophy or other hormonal changes. Slide imaged by the ThinPrep Imaging system and selected 22 reynolds reviewed then full manual screening. 05/24/2023 5:05 PM EDT [facility] Cervical cytology is a screening test [...] results is suggested (please call Microbiology at [phone] for results). 05/24/2023 5:05 PM EDT [facility] Menstrual Status Not Applicable 04/26 5:05 PM EDT [facility] History of Hysterectomy Not Applicable 05/24/2023 5:05 PM EDT [facility] Contraceptive History Not Applicable 05/24/2023 5:05 PM EDT [facility] Screening Type Routine Screen 2022 5:05 PM EDT [facility] High Risk? Yes 05/24/2023 5:05 PM EDT [facility] HPV Testing Requested? Request HPV Testing Regardless of Pap Test Findings 05/24/2023 5:05 PM EDT [facility] Previous Cancer History No 05/24/2023 5:05 PM EDT [facility] Clinical Information Z01.419, Z12.72 - Smear, vaginal, as part of routine gynecological examination [ICD-10-CM] 05/24/2023 5:05 PM EDT [facility] Swab Vaginal and cervical cytologic material / Unknown Non-blood Collection / Unknown 05/16/2023 9:36 AM EDT 05/17/2023 10:48 AM EDT Carolin Owens MD LAB CYTOLOGY ORDERABLES Final Result Performing Organization Address City/State/[facility] Co de Phone Number [facility] [address] [place] [address] documented in this encounter Visit Diagnoses Diagnosis Smear, vaginal, as part of routine gynecological examination- Primary Special screening for malignant neoplasms, vagina Discharge from the vagina Leukorrhea, not specified as infective Dyspareunia in female Vaginal atrophy Postmenopausal atrophic vaginitis Vaginal prolapse Unspecified prolapse of vaginal hodges Encounter for screening mammogram for breast cancer documented in this encounter Additional Health Concerns Assessment Noted Time A fall risk assessment has been complete d for the patient 05/16/2023 8:49 AM EDT A Body Mass Index follow-up plan has been documented for the patient 05/18/2023 11:47 AM EDT documented as of this encounter Care Teams Weigher And Crusher Relationship Specialty Start Date End Date Sierra Collado MD [address] [place] [address] PCP - General 05/16/23 documented as of this encounter
[2024-06-30 22:55] VITALS: BP 132/68; PULSE 72; RESP 16; TEMP 36.6; O2SAT 98
== END 2024-06-30 23:01 | disposition home or self-care (01) ==
PROVIDERS: Emergency Provider Student in an Organized Health Care Education/Training Program
DX: S52.501A Unspecified fracture of the lower end of right radius, initial encounter for closed fracture (principal); S63.501A Unspecified sprain of right wrist, initial encounter; M79.641 Pain in right hand; M25.531 Pain in right wrist; M25.521 Pain in right elbow; M79.601 Pain in right arm; W07.XXXA Fall from chair, initial encounter; Y93.89 Activity, other specified; Y92.219 Unspecified school as the place of occurrence of the external cause
CPT/HCPCS: 73080; 73090; 73110; 73130; 99283

== ENCOUNTER 2024-07-22 12:20 | Outpatient (CLI) | payer SELFPAY ==
--- NOTE | 2024-07-22 12:26 | XR_ITS ---
PROCEDURE INFORMATION: Exam: XR Right Wrist Exam date and time: 07/22/2024 12:16 PM Age: 54 years old Clinical indication: Pain; Wrist; Right; Additional info: Wrist fracture TECHNIQUE: Imaging protocol: Radiologic exam of the right wrist. Views: 3 or more views. COMPARISON: CR XR WRIST RT MIN 3V 06/30/2024 10:03 PM FINDINGS: Bones/joints: Osseous structures are intact. No fracture or malalignment. Visualized joint surfaces are preserved. Soft tissues: Unremarkable. IMPRESSION: Negative exam. No acute bony abnormalities.
== END 2024-07-22 23:59 | disposition home or self-care (01) ==
LOC: RAD 12:23
PROVIDERS: Visit Provider Physician Assistant
DX: M25.531 Pain in right wrist (principal); S52.501A Unspecified fracture of the lower end of right radius, initial encounter for closed fracture
CPT/HCPCS: 73110

== ENCOUNTER 2024-08-12 13:20 | Outpatient (CLI) | payer SELFPAY ==
--- NOTE | 2024-08-12 13:29 | XR_ITS ---
PROCEDURE INFORMATION: Exam: XR Right Wrist Exam date and time: 08/12/2024 1:21 PM Age: 54 years old Clinical indication: Injury or trauma; Fall; Blunt trauma (contusions or hematomas); Wrist; Right; Additional info: F/u right wrist FX jun 30 2024 TECHNIQUE: Imaging protocol: Radiologic exam of the right wrist. Views: 3 or more views. COMPARISON: CR XR WRIST RT MIN 3V 07/22/2024 12:16 PM FINDINGS: Bones/joints: There is mild buckling of the dorsal distal radius Soft tissues: Normal. IMPRESSION: There is mild buckling of the dorsal distal radius.
== END 2024-08-12 23:59 | disposition home or self-care (01) ==
PROVIDERS: PCP Family Medicine; Visit Provider Physician Assistant
DX: M25.531 Pain in right wrist (principal); S52.501A Unspecified fracture of the lower end of right radius, initial encounter for closed fracture
CPT/HCPCS: 73110

== ENCOUNTER 2024-08-13 10:11 | Outpatient (CLI) | payer SELFPAY ==
--- NOTE | 2024-08-13 10:14 | XR_ITS ---
FINAL REPORT CLINICAL HISTORY: Rt Shoulder Pain COMPARISON: None FINDINGS: RIGHT SHOULDER 2 views demonstrate no acute fracture or dislocation. The visualized joint spaces are normally aligned. The soft tissues are unremarkable. IMPRESSION: No acute process. Reviewed, Interpreted and Dictated by Immanuel Penny MD Transcribed by Aggie Carter Authenticated and [facility]
== END 2024-08-13 23:59 | disposition home or self-care (01) ==
LOC: RAD 10:12
PROVIDERS: Visit Provider Physician Assistant
DX: M25.511 Pain in right shoulder (principal)
CPT/HCPCS: 73030

== ENCOUNTER 2024-09-27 13:51 | Outpatient (CLI) | payer SELFPAY ==
--- NOTE | 2024-09-27 13:55 | XR_ITS ---
FINAL REPORT CLINICAL HISTORY: Right wrist fx COMPARISON: 08/12/2024 FINDINGS: RIGHT WRIST THREE VIEW FINDINGS: Three views redemonstrate mild cortical irregularity along the dorsal distal radial cortex. No discrete fracture line seen. There is no sclerosis to indicate active fracture healing. Mild degenerative changes are noted. The joint spaces appear normal. IMPRESSION: Stable exam. Given lack of sclerosis, abnormality is probably due to degenerative or congenital variant. Reviewed, Interpreted and Dictated by Martine Bond MD Transcribed by Paola Hidalgo Authenticated and [facility]
== END 2024-09-27 23:59 | disposition home or self-care (01) ==
LOC: RAD 13:53
PROVIDERS: Visit Provider Physician Assistant
DX: M25.531 Pain in right wrist (principal); S62.101A Fracture of unspecified carpal bone, right wrist, initial encounter for closed fracture
CPT/HCPCS: 73110